=== PATIENT | male | born 1955 | race African-American/Black ===

== ENCOUNTER 2016-05-13 11:32 | Emergency (ER) | payer OTHER ==
--- NOTE | 2016-05-13 12:38 | REP ---
Clinical: Pain and swelling. Technique: AP, lateral, bilateral oblique and sunrise views of the left knee. Comparison: 03/14/2016. 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 No obvious acute fracture dislocation. Lateral view best demonstrates a moderate to large suprapatellar effusion and anterior soft tissue swelling. [place] view suggests a mild stable lateral subluxation to the patella. Impression: Suprapatellar effusion. Tricompartmental degenerative changes as noted above. No obvious acute fracture or dislocation. Signed by Soy Nevarez MD 05/13/2016 12:29 P
--- NOTE | 2016-05-13 12:51 | EDDOCDS ---
Nurse's Notes [facility] Name: Shiv Thomas Age: 61 yrs Sex: Male : 1955 Arrival Date: 05/13/2016 Time: 11:32 Bed PD Private MD: MAXX THOMAS Diagnosis: Pain in left knee-with Effusion and tricompartmental arthritis Presentation: 05/13 11:41 Presenting complaint: Patient states: Pt presents with left knee swelling denies injury dls pain x 3 weeks. Adult Sepsis Screening: The patient does not have new or worsening altered mentation. Patient's respiratory rate is less than 22. Systolic blood pressure is greater than 100. Patient has a qSOFA score of 0- Negative Sepsis Screen. Suicide/Homicide risk assessment- the patient denies having any suicidal and/or homicidal ideations and does not present with any other emotional, behavioral or mental health complaints. Status: Patient is not a customer service analyst or dependent. Transition of care: patient was not received from another setting of care. 11:41 Acuity: ALEIDA Level 4 dls 11:41 Method Of Arrival: Walkin/Carried/Asstd dls Triage Assessment: 11:43 General: Appears uncomfortable, well developed, Behavior is cooperative. Pain: Pain dls currently is 10 out of 10 on a pain scale. HIV screening NA for this visit Offered previously. Historical: - Allergies: no known allergies; - PMHx: Arthritis; - PSHx: right knee; - Social history: Smoking status: Patient uses tobacco products, light tobacco smoker. No barriers to communication noted, The patient speaks fluent Maori. - : The pt / caregiver states he / she is not on anticoagulants. Home medication list is obtained from the patient. - Exposure Risk Screening:: None identified. Vital Signs: 11:35 BP 137 / 76; Pulse 81; Resp 18 S; Temp 98.1; Pulse Ox 100% on R/A; Weight 86.18 kg (R); dd6 Height 6 ft. 8 in. (203.20 cm) (R); 12:42 BP 128 / 77; Pulse 82; Resp 18; Temp 97.6(O); Pulse Ox 99% on R/A; Pain 10/10; ct3 11:35 Body Mass Index 20.87 (86.18 kg, 203.20 cm) dd6 Vitals: 11:35 Log In Time: May 13, 2016 at 11:33. dd6 ED Course: 11:34 Patient visited by Navneet Heath PCA. dd6 11:34 Patient moved to Waiting dd6 11:35 NO [facility] is Private Physician. dd6 11:36 Patient moved to Pre RCE dd6 11:42 Triage Initiated dls 12:01 Patient moved to Triage 2 kcs 12:02 Jung Olvera PA-C is PHCP. dk1 12:02 Jocye Ralph MD is Attending Physician. dk1 12:05 Patient visited by uJng Olvera PA-C. dk1 12:11 Patient moved to TR4 kcs 12:35 [facility] is Referral Physician. dk1 12:38 Patient moved to PD ct3 12:42 Patient visited by Moon Marie PCA. ct3 Order Results: There are currently no results for this order. Outcome: 12:35 Discharge ordered by Provider. dk1 12:50 Patient left the ED. [facility] Signatures: Isabela Goodson RN RN Ines Potts RN RN Jung Carranza PA-C PA-C dk1 Navneet Heath, ANNIE CHERRY CUTTER dd6 Moon Marie PCA CHERRY CUTTER ct3 MTDD
--- NOTE | 2016-05-13 12:51 | EDDOCDS ---
Physician Documentation [facility] Name: Shiv Thomas Age: 61 yrs Sex: Male : 1955 Arrival Date: 05/13/2016 Time: 11:32 Bed PD Private MD: MAXX THOMAS Disposition: 05/13/16 12:35 Discharged to Home/Self Care. Impression: Pain in left knee - with Effusion and tricompartmental arthritis. - Condition is Stable. - Discharge Instructions: Arthralgia, Arthritis, Nonspecific, [id number]. - Prescriptions for meloxicam 15 mg Oral tablet - take 1 tablet by ORAL route once daily; 20 tablet. - Medication Reconciliation, Local Pharmacy Hours form. - Follow up: [facility]; When: 1 - 2 days; Reason: Recheck today's complaints, Continuance of care. Follow up: Emergency Department; When: As needed; Reason: Worsening of conditions. - Problem is an ongoing problem. - Symptoms are unchanged. Historical: - Allergies: no known allergies; - PMHx: Arthritis; - PSHx: right knee; - Social history: Smoking status: Patient uses tobacco products, light tobacco smoker. No barriers to communication noted, The patient speaks fluent Namibian. - : The pt / caregiver states he / she is not on anticoagulants. Home medication list is obtained from the patient. - Exposure Risk Screening:: None identified. Vital Signs: 05/13 11:35 BP 137 / 76; Pulse 81; Resp 18 S; Temp 98.1; Pulse Ox 100% on R/A; Weight 86.18 kg / dd6 189.99 lbs (R); Height 6 ft. 8 in. (203.20 cm) (R); 12:42 BP 128 / 77; Pulse 82; Resp 18; Temp 97.6(O); Pulse Ox 99% on R/A; Pain 10/10; ct3 11:35 Body Mass Index 20.87 (86.18 kg, 203.20 cm) dd6 MDM: 12:10 Knee, Complete Ordered. EDMS 12:13 Financial registration complete. lg Signatures: Dispatcher [employer] EDIsabela Card RN RN kcs Scott, Debra, RN RN dls Rehana Velasquez, Mj Reg lg Wade, Jung, PA-C PA-C dk1 MTDD
--- NOTE | 2016-05-15 13:50 | EDDOCDS ---
Nurse's Notes [facility] Name: Shiv Thomas Age: 61 yrs Sex: Male : 1955 Arrival Date: 05/13/2016 Time: 11:32 Bed PD Private MD: MAXX THOMAS Diagnosis: Pain in left knee-with Effusion and tricompartmental arthritis Presentation: 05/13 11:41 Presenting complaint: Patient states: Pt presents with left knee swelling denies injury dls pain x 3 weeks. Adult Sepsis Screening: The patient does not have new or worsening altered mentation. Patient's respiratory rate is less than 22. Systolic blood pressure is greater than 100. Patient has a qSOFA score of 0- Negative Sepsis Screen. Suicide/Homicide risk assessment- the patient denies having any suicidal and/or homicidal ideations and does not present with any other emotional, behavioral or mental health complaints. Status: Patient is not a customer service sales consultant or dependent. Transition of care: patient was not received from another setting of care. 11:41 Acuity: ALEIDA Level 4 dls 11:41 Method Of Arrival: Walkin/Carried/Asstd dls Triage Assessment: 11:43 General: Appears uncomfortable, well developed, Behavior is cooperative. Pain: Pain dls currently is 10 out of 10 on a pain scale. HIV screening NA for this visit Offered previously. Historical: - Allergies: no known allergies; - PMHx: Arthritis; - PSHx: right knee; - Social history: Smoking status: Patient uses tobacco products, light tobacco smoker. No barriers to communication noted, The patient speaks fluent Khmer. - Family history: Not pertinent. - : The pt / caregiver states he / she is not on anticoagulants. Home medication list is obtained from the patient. - Exposure Risk Screening:: None identified. Screenin:48 Screening information is obtained from the patient. Fall risk: No risks identified. kcs Assistance ADL's: requires no assistance with activities of daily living. Abuse/DV Screen: The patient / caregiver reports he/she is: not in a situation that causes fear, pain or injury. Nutritional screening: No deficits noted. Advance Directives: Currently, there is no health care proxy. There is no living will. home support is adequate. Assessment: 12:48 Reassessment: Patient states symptoms have not improved. kcs 12:48 General: Appears comfortable, slender, well developed, well nourished, well groomed, kcs Behavior is cooperative, pleasant. General: gait - upright and steady. Pain: Location: left knee. Neurological: Level of Consciousness is awake, alert. Respiratory: Airway is patent Respiratory effort is even, unlabored, Respiratory pattern is regular, symmetrical. Derm: Skin is intact, is healthy with good turgor, Skin is dry, Skin is normal. Vital Signs: 11:35 BP 137 / 76; Pulse 81; Resp 18 S; Temp 98.1; Pulse Ox 100% on R/A; Weight 86.18 kg (R); dd6 Height 6 ft. 8 in. (203.20 cm) (R); 12:42 BP 128 / 77; Pulse 82; Resp 18; Temp 97.6(O); Pulse Ox 99% on R/A; Pain 10/10; ct3 11:35 Body Mass Index 20.87 (86.18 kg, 203.20 cm) dd6 Vitals: 11:35 Log In Time: May 13, 2016 at 11:33. dd6 ED Course: 11:34 Patient visited by Navneet Heath PCA. dd6 11:34 Patient moved to Waiting dd6 11:35 [facility]. dd6 11:36 Patient moved to Pre RCE dd6 11:42 Triage Initiated dls 12:01 Patient moved to Triage 2 kcs 12:02 [facility] dk1 12:02 Joyce Ralph MD is Attending Physician. dk1 12:05 Patient visited by Jung Olvera PA-C. dk1 12:11 Patient moved to TR4 kcs 12:35 [facility] is Referral Physician. dk1 12:38 Patient moved to PD / ct3 12:42 Patient visited by Moon Marie PCA. ct3 12:48 The patient / caregiver is instructed regarding the plan of care and ED course. kcs 12:48 No IV's were initiated during this patient's visit. No procedures done that require kcs assistance. 12:55 Knee, Complete Returned. EDMS 14:45 [facility] Payment Agreement was scanned into [employer] and attached to record. lg 14:47 T-Sheet-- Draft Copy was scanned into [employer] and attached to record. 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 No obvious acute fracture; dislocation. Lateral view best demonstrates a moderate to large suprapatellar; effusion and anterior soft tissue swelling. [place] view suggests a mild stable; lateral subluxation to the patella.; ; Impression:; Suprapatellar effusion.; Tricompartmental degenerative changes as noted above.; No obvious acute fracture or dislocation.; ; ; Signed by; Soy Nevarez MD 05/13/2016 12:29 P; Outcome: 12:35 Discharge ordered by Provider. dk1 12:48 Discharge Assessment: Patient awake, alert and oriented x 3. No cognitive and/or kcs functional deficits noted. Patient verbalized understanding of disposition instructions. Patient awake and alert. patient administered narcotics - no. The following High Risk Discharge criteria are identified: None. Discharged to home ambulatory. Condition: stable. Discharge instructions given to patient, Instructed on discharge instructions, follow up and referral plans. already has an appointment with Ortho tomorrow Demonstrated understanding of instructions, medications, Pt was receptive of discharge instructions/ teaching. No special radiology studies were completed. Property sent home with patient. 12:50 Patient left the ED. roni Signatures: Dispatcher [employer] EDMS Isabela Goodson RN RN kcs Scott, Debra, RN RN dls Amna Servin, Reg Reg gb Rehana Velasquez, Reg Reg lg Jung Olvera PAJose Martin PA-C dk1 Navneet Heath, HORSE AND WAGON DRIVER HORSE AND WAGON DRIVER dd6 Moon Marie, HORSE AND WAGON DRIVER HORSE AND WAGON DRIVER ct3 Corrections: (The following items were deleted from the chart) 12:55 12:53 Reassessment: Patient states symptoms have not improved. roni tamayo Chart Complete MTDD
--- NOTE | 2016-05-15 13:50 | EDDOCDS ---
Physician Documentation [facility] Name: Shiv Thomas Age: 61 yrs Sex: Male : 1955 Arrival Date: 05/13/2016 Time: 11:32 Bed PD Private MD: MAXX THOMAS Disposition: 05/13/16 12:35 Discharged to Home/Self Care. Impression: Pain in left knee - with Effusion and tricompartmental arthritis. - Condition is Stable. - Discharge Instructions: Arthralgia, Arthritis, Nonspecific, [id number]-vr-[id number]. - Prescriptions for meloxicam 15 mg Oral tablet - take 1 tablet by ORAL route once daily; 20 tablet. - Medication Reconciliation, Local Pharmacy Hours form. - Follow up: [facility]; When: 1 - 2 days; Reason: Recheck today's complaints, Continuance of care. Follow up: Emergency Department; When: As needed; Reason: Worsening of conditions. - Problem is an ongoing problem. - Symptoms are unchanged. Historical: - Allergies: no known allergies; - PMHx: Arthritis; - PSHx: right knee; - Social history: Smoking status: Patient uses tobacco products, light tobacco smoker. No barriers to communication noted, The patient speaks fluent Kuwaiti. - Family history: Not pertinent. - : The pt / caregiver states he / she is not on anticoagulants. Home medication list is obtained from the patient. - Exposure Risk Screening:: None identified. Vital Signs: 05/13 11:35 BP 137 / 76; Pulse 81; Resp 18 S; Temp 98.1; Pulse Ox 100% on R/A; Weight 86.18 kg / dd6 189.99 lbs (R); Height 6 ft. 8 in. (203.20 cm) (R); 12:42 BP 128 / 77; Pulse 82; Resp 18; Temp 97.6(O); Pulse Ox 99% on R/A; Pain 10/10; ct3 11:35 Body Mass Index 20.87 (86.18 kg, 203.20 cm) dd6 MDM: 12:10 Knee, Complete Ordered. EDMS 12:13 Financial registration complete. lg 14:45 [facility] Payment Agreement was scanned into [employer] and attached to record. lg 14:47 T-Sheet-- Draft Copy was scanned into [employer] and attached to record. gb Signatures: Dispatcher [employer] Isabela Reeves RN RN Ines Potts RN RN dls Amna Servin, Reg Reg gb Rehana Velasquez, Reg Reg lg Jung Olvera, FLORENCIO vidal The chart was reviewed and I authenticate all verbal orders and agree with the evaluation and treatment provided.Attachments: 14:45 [facility] Payment Agreement lg 14:47 T-Sheet-- Draft Copy gb Chart Complete MTDD
--- NOTE | 2016-05-15 13:50 | EDDOCDS ---
Physician Documentation [facility] Name: Shiv Thomas Age: 61 yrs Sex: Male : 1955 Arrival Date: 05/13/2016 Time: 11:32 Bed PD Private MD: MAXX THOMAS Disposition: 05/13/16 12:35 Discharged to Home/Self Care. Impression: Pain in left knee - with Effusion and tricompartmental arthritis. - Condition is Stable. - Discharge Instructions: Arthralgia, Arthritis, Nonspecific, [id number]. - Prescriptions for meloxicam 15 mg Oral tablet - take 1 tablet by ORAL route once daily; 20 tablet. - Medication Reconciliation, Local Pharmacy Hours form. - Follow up: [facility]; When: 1 - 2 days; Reason: Recheck today's complaints, Continuance of care. Follow up: Emergency Department; When: As needed; Reason: Worsening of conditions. - Problem is an ongoing problem. - Symptoms are unchanged. Historical: - Allergies: no known allergies; - PMHx: Arthritis; - PSHx: right knee; - Social history: Smoking status: Patient uses tobacco products, light tobacco smoker. No barriers to communication noted, The patient speaks fluent Ethiopian. - Family history: Not pertinent. - : The pt / caregiver states he / she is not on anticoagulants. Home medication list is obtained from the patient. - Exposure Risk Screening:: None identified. Vital Signs: 05/13 11:35 BP 137 / 76; Pulse 81; Resp 18 S; Temp 98.1; Pulse Ox 100% on R/A; Weight 86.18 kg / dd6 189.99 lbs (R); Height 6 ft. 8 in. (203.20 cm) (R); 12:42 BP 128 / 77; Pulse 82; Resp 18; Temp 97.6(O); Pulse Ox 99% on R/A; Pain 10/10; ct3 11:35 Body Mass Index 20.87 (86.18 kg, 203.20 cm) dd6 MDM: 12:10 Knee, Complete Ordered. EDMS 12:13 Financial registration complete. lg 14:45 [facility] Payment Agreement was scanned into [email or web address] and attached to record. lg 14:47 T-Sheet-- Draft Copy was scanned into [email or web address] and attached to record. gb Signatures: Dispatcher [employer] Isabela Reeves RN RN Ines Potts RN RN dls Amna Servin, Reg Reg gb Rehana Velasquez, Reg Reg lg Jung Olvera, FLORENCIO vidal The chart was reviewed and I authenticate all verbal orders and agree with the evaluation and treatment provided.Attachments: 14:45 [facility] Payment Agreement lg 14:47 T-Sheet-- Draft Copy gb Chart Complete MTDD
== END 2016-05-13 12:50 | disposition home or self-care (01) ==
LOC: M ED 11:32
DX: M25.462 Effusion, left knee (principal); M25.562 Pain in left knee; M17.12 Unilateral primary osteoarthritis, left knee; Z72.0 Tobacco use

== ENCOUNTER 2016-05-21 11:27 | Emergency (ER) | payer OTHER ==
--- NOTE | 2016-05-21 12:23 | EDDOCDS ---
Physician Documentation [facility] Name: Shiv Thomas Age: 61 yrs Sex: Male : 1955 Arrival Date: 05/21/2016 Time: 11:27 Bed TR8 Private MD: MAXX THOMAS Disposition: 05/21/16 12:14 Discharged to Home/Self Care. Impression: Unspecified symptoms and signs involving the musculoskeletal system - thoracic strain. - Condition is Stable. - Discharge Instructions: Muscle Strain. - Prescriptions for Ibuprofen 600 mg Oral Tablet - take 1 tablet by ORAL route every 6 hours As needed take with food; 30 tablet. Cyclobenzaprine 10 mg Oral Tablet - take 1 tablet by ORAL route 3 times per day As needed; 15 tablet. - Medication Reconciliation, Local Pharmacy Hours form. - [facility]; When: Call to arrange an appointment; Reason: Recheck today's complaints, Continuance of care. - Problem is new. - Symptoms are unchanged. Historical: - Allergies: No known drug Allergies; - Home Meds: 1. Unknown - PMHx: Arthritis; - PSHx: right knee; - Social history: Smoking status: Patient uses tobacco products, light tobacco smoker. No barriers to communication noted, The patient speaks fluent Nicaraguan, Speaks appropriately for age. - Family history: Not pertinent. - : The pt / caregiver states he / she is not on anticoagulants. Unable to Verify Home Med List with the patient / caregiver. Note patient cannot remember what he takes for his need . - Exposure Risk Screening:: None identified. Vital Signs: 05/21 11:28 BP 157 / 85; Pulse 80; Resp 18 S; Temp 96.9(T); Pulse Ox 99% on R/A; Weight 88.45 kg / dd6 195 lbs (R); Height 6 ft. 8 in. (203.20 cm) (R); 11:28 Body Mass Index 21.42 (88.45 kg, 203.20 cm) dd6 MDM: 12:20 Financial registration complete. mm15 Signatures: Conor Sanchez, Yana Montes RN RN hs1 Grant Ramírez mm15 Jannette Burgess RN RN ms18 MTDD
--- NOTE | 2016-05-21 12:23 | EDDOCDS ---
Nurse's Notes [facility] Name: Shiv Thomas Age: 61 yrs Sex: Male : 1955 Arrival Date: 05/21/2016 Time: 11:27 Bed TR8 Private MD: MAXX THOMAS Diagnosis: Unspecified symptoms and signs involving the musculoskeletal system-thoracic strain Presentation: 05/21 11:34 Presenting complaint: Patient states: right upper abdominal pain states feels worse hs1 when he bends to orange picker something. Denies N/V/D. Denies urinary issues. Acute neurological deficits are not present. Mechanism of Injury: No Mechanism of Injury. Adult Sepsis Screening: The patient does not have new or worsening altered mentation. Patient's respiratory rate is less than 22. Systolic blood pressure is greater than 100. Patient has a qSOFA score of 0- Negative Sepsis Screen. Suicide/Homicide risk assessment- the patient denies having any suicidal and/or homicidal ideations and does not present with any other emotional, behavioral or mental health complaints. Status: Patient is not a director of women's services or dependent. Transition of care: patient was not received from another setting of care. 11:34 Acuity: ALEIDA Level 4 hs1 11:34 Method Of Arrival: Walkin/Carried/Asstd hs1 Triage Assessment: 11:37 General: Appears in no apparent distress, Behavior is appropriate for age, cooperative. hs1 Pain: Location: right lateral anterior chest Pain currently is 9 out of 10 on a pain scale. HIV screening NA for this visit Offered previously. Musculoskeletal: Circulation, motion, and sensation intact Capillary refill < 3 seconds Range of motion intact in all extremities. Historical: - Allergies: No known drug Allergies; - Home Meds: 1. Unknown - PMHx: Arthritis; - PSHx: right knee; - Social history: Smoking status: Patient uses tobacco products, light tobacco smoker. No barriers to communication noted, The patient speaks fluent Japanese, Speaks appropriately for age. - Family history: Not pertinent. - : The pt / caregiver states he / she is not on anticoagulants. Unable to Verify Home Med List with the patient / caregiver. Note patient cannot remember what he takes for his need . - Exposure Risk Screening:: None identified. Screenin:19 Screening information is obtained from the patient. Fall risk: No risks identified. ms18 Assistance ADL's: requires no assistance with activities of daily living. Abuse/DV Screen: The patient / caregiver reports he/she is: not in a situation that causes fear, pain or injury. Nutritional screening: No deficits noted. Advance Directives: There is no living will. home support is adequate. Assessment: 12:19 General: Appears in no apparent distress, comfortable, slender, Behavior is appropriate ms18 for age, cooperative, pleasant. Pain: Location: R side ribs. Neurological: No deficits noted. Respiratory: No deficits noted. Denies cough, shortness of breath. Derm: Skin is normal. Vital Signs: 11:28 BP 157 / 85; Pulse 80; Resp 18 S; Temp 96.9(T); Pulse Ox 99% on R/A; Weight 88.45 kg dd6 (R); Height 6 ft. 8 in. (203.20 cm) (R); 11:28 Body Mass Index 21.42 (88.45 kg, 203.20 cm) dd6 Vitals: 11:28 Log In Time: May 21, 2016 at 11:26. dd6 ED Course: 11:28 Patient visited by Navneet Heath PCA. dd6 11:28 [facility]. dd6 11:28 Patient moved to Waiting dd6 11:29 Patient moved to Pre RCE dd6 11:35 Triage Initiated hs1 11:58 Patient moved to Triage 2 ms18 12:00 [facility] ke 12:00 Patient visited by Conor Sanchez FNP. ke 12:00 Patient visited by Conor Sanchez FNP. ke 12:11 [facility] is Referral Physician. ke 12:19 Patient visited by Jannette Burgess RN. ms18 12:19 Patient moved to TR8 ms18 12:19 The patient / caregiver is instructed regarding the plan of care and ED course. Patient ms18 has correct armband on for positive identification. Property sent home with patient. :Personal belongings accompany Pt. 12:19 No IV's were initiated during this patient's visit. No procedures done that require ms18 assistance. Order Results: There are currently no results for this order. Outcome: 12:14 Discharge ordered by Provider. ke 12:19 Discharge Assessment: Patient awake, alert and oriented x 3. No cognitive and/or ms18 functional deficits noted. Patient verbalized understanding of disposition instructions. patient administered narcotics - no. The following High Risk Discharge criteria are identified: None. Discharged to home ambulatory. Condition: good Condition: stable. Discharge instructions given to patient, Instructed on discharge instructions, follow up and referral plans. medication usage, Demonstrated understanding of instructions, medications, Pt was receptive of discharge instructions/ teaching. Prescriptions given X 2. No special radiology studies were completed. 12:22 Patient left the ED. ms18 Signatures: Conor Sanchez, Navneet Marr, ANNIE PUBLICATIONS PRODUCTION SUPERVISOR dd6 Yaan Hernandez, RN RN hs1 Jannette BurgessRN RN ms18 MTDD
--- NOTE | 2016-05-23 13:23 | EDDOCDS ---
Physician Documentation [facility] Name: Shiv Thomas Age: 61 yrs Sex: Male : 1955 Arrival Date: 05/21/2016 Time: 11:27 Bed TR8 Private MD: MAXX THOMAS Disposition: 05/21/16 12:14 Discharged to Home/Self Care. Impression: Unspecified symptoms and signs involving the musculoskeletal system - thoracic strain. - Condition is Stable. - Discharge Instructions: Muscle Strain. - Prescriptions for Ibuprofen 600 mg Oral Tablet - take 1 tablet by ORAL route every 6 hours As needed take with food; 30 tablet. Cyclobenzaprine 10 mg Oral Tablet - take 1 tablet by ORAL route 3 times per day As needed; 15 tablet. - Medication Reconciliation, Local Pharmacy Hours form. - [facility] up: [facility]; When: Call to arrange an appointment; Reason: Recheck today's complaints, Continuance of care. - Problem is new. - Symptoms are unchanged. Historical: - Allergies: No known drug Allergies; - Home Meds: 1. Unknown - PMHx: Arthritis; - PSHx: right knee; - Social history: Smoking status: Patient uses tobacco products, light tobacco smoker. No barriers to communication noted, The patient speaks fluent Lao, Speaks appropriately for age. - Family history: Not pertinent. - : The pt / caregiver states he / she is not on anticoagulants. Unable to Verify Home Med List with the patient / caregiver. Note patient cannot remember what he takes for his need . - Exposure Risk Screening:: None identified. Vital Signs: 05/21 11:28 BP 157 / 85; Pulse 80; Resp 18 S; Temp 96.9(T); Pulse Ox 99% on R/A; Weight 88.45 kg / dd6 195 lbs (R); Height 6 ft. 8 in. (203.20 cm) (R); 11:28 Body Mass Index 21.42 (88.45 kg, 203.20 cm) dd6 MDM: 12:20 Financial registration complete. mm15 12:39 [facility] Payment Agreement was scanned into [employer] and attached to record. mm15 14:52 T-Sheet-- Draft Copy was scanned into [employer] and attached to record. gb Signatures: Amna Servin, Reg Reg gb Conor Sanchez, TUMBLING AND ROLLING SUPERVISOR TUMBLING AND ROLLING SUPERVISOR Yana Mcarthur RN RN hs1 Grant Ramírez mm15 Jannette Burgess,RN RN ms18 The chart was reviewed and I authenticate all verbal orders and agree with the evaluation and treatment provided.Attachments: 12:39 [facility] Payment Agreement mm15 14:52 T-Sheet-- Draft Copy gb Chart Complete MTDD
--- NOTE | 2016-05-23 13:23 | EDDOCDS ---
Physician Documentation [facility] Name: Shiv Thomas Age: 61 yrs Sex: Male : 1955 Arrival Date: 05/21/2016 Time: 11:27 Bed TR8 Private MD: MAXX THOMAS Disposition: 05/21/16 12:14 Discharged to Home/Self Care. Impression: Unspecified symptoms and signs involving the musculoskeletal system - thoracic strain. - Condition is Stable. - Discharge Instructions: Muscle Strain. - Prescriptions for Ibuprofen 600 mg Oral Tablet - take 1 tablet by ORAL route every 6 hours As needed take with food; 30 tablet. Cyclobenzaprine 10 mg Oral Tablet - take 1 tablet by ORAL route 3 times per day As needed; 15 tablet. - Medication Reconciliation, Local Pharmacy Hours form. - Follow up: [facility]; When: Call to arrange an appointment; Reason: Recheck today's complaints, Continuance of care. - Problem is new. - Symptoms are unchanged. Historical: - Allergies: No known drug Allergies; - Home Meds: 1. Unknown - PMHx: Arthritis; - PSHx: right knee; - Social history: Smoking status: Patient uses tobacco products, light tobacco smoker. No barriers to communication noted, The patient speaks fluent Cambodian, Speaks appropriately for age. - Family history: Not pertinent. - : The pt / caregiver states he / she is not on anticoagulants. Unable to Verify Home Med List with the patient / caregiver. Note patient cannot remember what he takes for his need . - Exposure Risk Screening:: None identified. Vital Signs: 05/21 11:28 BP 157 / 85; Pulse 80; Resp 18 S; Temp 96.9(T); Pulse Ox 99% on R/A; Weight 88.45 kg / dd6 195 lbs (R); Height 6 ft. 8 in. (203.20 cm) (R); 11:28 Body Mass Index 21.42 (88.45 kg, 203.20 cm) dd6 MDM: 12:20 Financial registration complete. mm15 12:39 [facility] Payment Agreement was scanned into [employer] and attached to record. mm15 14:52 T-Sheet-- Draft Copy was scanned into [employer] and attached to record. gb Signatures: Amna Servin, Reg Reg gb Conor Sanchez, ASSET ADMINISTRATOR ASSET ADMINISTRATOR Yana Mcarthur RN RN hs1 Grant Ramírez mm15 Jannette Burgess,RN RN ms18 The chart was reviewed and I authenticate all verbal orders and agree with the evaluation and treatment provided.Attachments: 12:39 [facility] Payment Agreement mm15 14:52 T-Sheet-- Draft Copy gb Chart Complete MTDD
--- NOTE | 2016-05-23 13:23 | EDDOCDS ---
Nurse's Notes [facility] Name: Shiv Thomas Age: 61 yrs Sex: Male : 1955 Arrival Date: 05/21/2016 Time: 11:27 Bed TR8 Private MD: MAXX THOMAS Diagnosis: Unspecified symptoms and signs involving the musculoskeletal system-thoracic strain Presentation: 05/21 11:34 Presenting complaint: Patient states: right upper abdominal pain states feels worse hs1 when he bends to sheepskin pickler something. Denies N/V/D. Denies urinary issues. Acute neurological deficits are not present. Mechanism of Injury: No Mechanism of Injury. Adult Sepsis Screening: The patient does not have new or worsening altered mentation. Patient's respiratory rate is less than 22. Systolic blood pressure is greater than 100. Patient has a qSOFA score of 0- Negative Sepsis Screen. Suicide/Homicide risk assessment- the patient denies having any suicidal and/or homicidal ideations and does not present with any other emotional, behavioral or mental health complaints. Status: Patient is not a supply service worker or dependent. Transition of care: patient was not received from another setting of care. 11:34 Acuity: ALEIDA Level 4 hs1 11:34 Method Of Arrival: Walkin/Carried/Asstd hs1 Triage Assessment: 11:37 General: Appears in no apparent distress, Behavior is appropriate for age, cooperative. hs1 Pain: Location: right lateral anterior chest Pain currently is 9 out of 10 on a pain scale. HIV screening NA for this visit Offered previously. Musculoskeletal: Circulation, motion, and sensation intact Capillary refill < 3 seconds Range of motion intact in all extremities. Historical: - Allergies: No known drug Allergies; - Home Meds: 1. Unknown - PMHx: Arthritis; - PSHx: right knee; - Social history: Smoking status: Patient uses tobacco products, light tobacco smoker. No barriers to communication noted, The patient speaks fluent Irish, Speaks appropriately for age. - Family history: Not pertinent. - : The pt / caregiver states he / she is not on anticoagulants. Unable to Verify Home Med List with the patient / caregiver. Note patient cannot remember what he takes for his need . - Exposure Risk Screening:: None identified. Screenin:19 Screening information is obtained from the patient. Fall risk: No risks identified. ms18 Assistance ADL's: requires no assistance with activities of daily living. Abuse/DV Screen: The patient / caregiver reports he/she is: not in a situation that causes fear, pain or injury. Nutritional screening: No deficits noted. Advance Directives: There is no living will. home support is adequate. Assessment: 12:19 General: Appears in no apparent distress, comfortable, slender, Behavior is appropriate ms18 for age, cooperative, pleasant. Pain: Location: R side ribs. Neurological: No deficits noted. Respiratory: No deficits noted. Denies cough, shortness of breath. Derm: Skin is normal. Vital Signs: 11:28 BP 157 / 85; Pulse 80; Resp 18 S; Temp 96.9(T); Pulse Ox 99% on R/A; Weight 88.45 kg dd6 (R); Height 6 ft. 8 in. (203.20 cm) (R); 11:28 Body Mass Index 21.42 (88.45 kg, 203.20 cm) dd6 Vitals: 11:28 Log In Time: May 21, 2016 at 11:26. dd6 ED Course: 11:28 Patient visited by Navneet Heath PCA. dd6 11:28 [facility] dd6 11:28 Patient moved to Waiting dd6 11:29 Patient moved to Pre RCE dd6 11:35 Triage Initiated hs1 11:58 Patient moved to Triage 2 ms18 12:00 [facility] ke 12:00 Patient visited by Conor Sanchez FNP. ke 12:00 Patient visited by Conor Sanchez FNP. ke 12:11 [facility] is Referral Physician. ke 12:19 Patient visited by Jannette Burgess RN. ms18 12:19 Patient moved to TR8 ms18 12:19 The patient / caregiver is instructed regarding the plan of care and ED course. Patient ms18 has correct armband on for positive identification. Property sent home with patient. :Personal belongings accompany Pt. 12:19 No IV's were initiated during this patient's visit. No procedures done that require ms18 assistance. 12:39 [facility] [place] [place] Payment Agreement was scanned into [employer] and attached to record. mm15 14:52 T-Sheet-- Draft Copy was scanned into [employer] and attached to record. gb Order Results: There are currently no results for this order. Outcome: 12:14 Discharge ordered by Provider. geri 12:19 Discharge Assessment: Patient awake, alert and oriented x 3. No cognitive and/or ms18 functional deficits noted. Patient verbalized understanding of disposition instructions. patient administered narcotics - no. The following High Risk Discharge criteria are identified: None. Discharged to home ambulatory. Condition: good Condition: stable. Discharge instructions given to patient, Instructed on discharge instructions, follow up and referral plans. medication usage, Demonstrated understanding of instructions, medications, Pt was receptive of discharge instructions/ teaching. Prescriptions given X 2. No special radiology studies were completed. 12:22 Patient left the ED. ms18 Signatures: Amna Servin, Reg Reg Conor Sawant, TELECOMMUNICATIONS ENGINEER TELECOMMUNICATIONS ENGINEER Navneet Soriano, WEEDER THINNER WEEDER THINNER dd6 Yana Hernandez, RN RN hs1 Grant Ramírez mm15 Jannette Burgess,RN RN ms18 Chart Complete [facility]
== END 2016-05-21 12:22 | disposition home or self-care (01) ==
LOC: M ED 11:27
DX: R07.89 Other chest pain (principal); S29.019A Strain of muscle and tendon of unspecified wall of thorax, initial encounter; X58.XXXA Exposure to other specified factors, initial encounter; Y92.89 Other specified places as the place of occurrence of the external cause; Y93.89 Activity, other specified; Y99.8 Other external cause status; M12.9 Arthropathy, unspecified; F17.210 Nicotine dependence, cigarettes, uncomplicated

== ENCOUNTER 2016-06-13 11:24 | Emergency (ER) | payer OTHER ==
--- NOTE | 2016-06-13 12:36 | REP ---
CHEST X-RAY: Two views. HISTORY: Right-sided chest pain. Cough. Comparison chest x-ray June 17, 2012. FINDINGS: The lungs are symmetrically aerated and free of infiltrate. Pleural angles are sharp. Heart size is normal. Pulmonary vasculature is not increased. There are degenerative changes in the shoulders particularly on the right. IMPRESSION: No active disease. Signed by Luis Casarez MD 06/13/2016 01:56 P
--- NOTE | 2016-06-13 13:27 | EDDOCDS ---
Physician Documentation [facility] Name: Shiv Thomas Age: 61 yrs Sex: Male : 1955 Arrival Date: 06/13/2016 Time: 11:24 Bed PR Private MD: MAXX THOMAS Disposition: 06/13/16 13:17 Discharged to Home/Self Care. Impression: Chest pain, unspecified. - Condition is Stable. - Discharge Instructions: Chest Wall Pain. - Prescriptions for Robaxin- 750 750 mg Oral Tablet - take 1 tablet by ORAL route every 6 hours As needed; 40 tablet. etodolac 200 mg Oral Capsule - take 1 capsule by ORAL route 3 times per day; 30 capsule. - Medication Reconciliation, Local Pharmacy Hours form. - Follow up: [facility]; When: Call to arrange an appointment; Reason: Further diagnostic work-up, Recheck today's complaints, Continuance of care. - Problem is an ongoing problem. - Symptoms are unchanged. Historical: - Allergies: No known drug Allergies; - Home Meds: 1. none - PMHx: Arthritis; - PSHx: right knee; - Social history: Smoking status: Patient uses tobacco products, light tobacco smoker. No barriers to communication noted, The patient speaks fluent Lithuanian, Speaks appropriately for age. - Family history: Not pertinent. - : The pt / caregiver states he / she is not on anticoagulants. Home medication list is obtained from the patient. - Exposure Risk Screening:: None identified. Vital Signs: 06/13 11:25 BP 163 / 90; Pulse 80; Resp 18; Temp 99.0(O); Pulse Ox 100% on R/A; Weight 83.91 kg / elp 184.99 lbs (R); Height 6 ft. 8 in. (203.20 cm) (R); Pain 10/10; 13:25 BP 141 / 87; Pulse 80; Resp 18; Temp 97.8(T); Pulse Ox 95% on R/A; Pain 10/10; ck1 11:25 Body Mass Index 20.32 (83.91 kg, 203.20 cm) elp MDM: 12:02 Chest, 2 View (pa\E\lat) Ordered. EDCT 12:32 Financial registration complete. mm15 12:32 [facility] [place] Payment Agreement was scanned into [employer] and attached to record. mm15 Signatures: Dispatcher [employer] EDKanwal MoyaRN RN ck1 Talia FlanneryRN RN jo3 Xavier Dobbins PA PA btw McGrath, Marlynn mm15 The chart was reviewed and I authenticate all verbal orders and agree with the evaluation and treatment provided.Attachments: 12:32 [facility] Payment Agreement mm15 MTDD
--- NOTE | 2016-06-13 13:27 | EDDOCDS ---
Nurse's Notes [facility] Name: Shiv Thomas Age: 61 yrs Sex: Male : 1955 Arrival Date: 06/13/2016 Time: 11:24 Bed PR Private MD: MAXX THOMAS Diagnosis: Chest pain, unspecified Presentation: 06/13 11:33 Presenting complaint: Patient states: Was seen here three weeks ago and diagnosed with jo3 a pulled muscle to right rib area. Pain pills are gone and the pain is still there. Adult Sepsis Screening: The patient does not have new or worsening altered mentation. Patient's respiratory rate is less than 22. Systolic blood pressure is greater than 100. Patient has a qSOFA score of 0- Negative Sepsis Screen. Suicide/Homicide risk assessment- the patient denies having any suicidal and/or homicidal ideations and does not present with any other emotional, behavioral or mental health complaints. Status: Patient is not a nutrition services aide or dependent. Transition of care: patient was not received from another setting of care. 11:33 Acuity: ALEIDA Level 4 jo3 11:33 Method Of Arrival: Walkin/Carried/Asstd jo3 Triage Assessment: 11:34 General: Appears in no apparent distress, comfortable, Behavior is appropriate for age, jo3 cooperative. HIV screening NA for this visit Offered previously. Neurological: Level of Consciousness is awake, alert, Oriented to person, place, time. Respiratory: Airway is patent Respiratory effort is even, unlabored. Derm: Skin Skin is pink, warm & dry. Historical: - Allergies: No known drug Allergies; - Home Meds: 1. none - PMHx: Arthritis; - PSHx: right knee; - Social history: Smoking status: Patient uses tobacco products, light tobacco smoker. No barriers to communication noted, The patient speaks fluent [place], Speaks appropriately for age. - Family history: Not pertinent. - : The pt / caregiver states he / she is not on anticoagulants. Home medication list is obtained from the patient. - Exposure Risk Screening:: None identified. Screenin:17 Screening information is obtained from the patient. Fall risk: No risks identified. ck1 Assistance ADL's: requires no assistance with activities of daily living. Abuse/DV Screen: The patient / caregiver reports he/she is: not in a situation that causes fear, pain or injury. Nutritional screening: No deficits noted. Advance Directives: Currently, there is no health care proxy. home support is adequate. Assessment: 13:25 General: Appears in no apparent distress, comfortable, Behavior is appropriate for age, ck1 cooperative. Pain: Location: chest Pain currently is 10 out of 10 on a pain scale. Neurological: Level of Consciousness is awake, alert, obeys commands, Oriented to person, place, time. Respiratory: Respiratory effort is unlabored, Respiratory pattern is regular, symmetrical. Derm: Skin is intact, is healthy with good turgor, Skin is pink, warm & dry. Musculoskeletal: Circulation, motion, and sensation intact Range of motion intact in all extremities. Vital Signs: 11:25 BP 163 / 90; Pulse 80; Resp 18; Temp 99.0(O); Pulse Ox 100% on R/A; Weight 83.91 kg elp (R); Height 6 ft. 8 in. (203.20 cm) (R); Pain 10/10; 13:25 BP 141 / 87; Pulse 80; Resp 18; Temp 97.8(T); Pulse Ox 95% on R/A; Pain 10/10; ck1 11:25 Body Mass Index 20.32 (83.91 kg, 203.20 cm) [facility] Vitals: 11:25 Log In Time: June 13, 2016 at 11:15. [facility] ED Course: 11:25 Patient visited by Cassandra Gonzalez PCA. elp 11:25 [facility] elp 11:25 Patient moved to Waiting elp 11:27 Patient visited by Cassandra Gonzalez PCA. elp 11:27 Patient moved to Pre RCE elp 11:34 Triage Initiated jo3 11:35 Patient visited by Talia Flannery RN. jo3 11:35 Patient moved to Triage 2 jo3 11:48 Xavier Dobbins PA is [facility]. btw 11:48 Shital Galo MD is Attending Physician. btw 11:49 Patient visited by Xavier Dobbins PA. btw 12:01 Patient moved to TR1 kcs 12:19 Patient visited by Moon Marie PCA. ct3 12:32 [facility] [place] [facility] Payment Agreement was scanned into [employer] and attached to record. mm15 12:49 Patient moved to PR1 / [facility] 13:16 [facility] is Referral Physician. btw 13:17 Patient visited by Kanwal Durham RN. ck1 13:17 The patient / caregiver is instructed regarding the plan of care and ED course. ck1 13:17 No IV's were initiated during this patient's visit. No procedures done that require ck1 assistance. 13:18 Chest, 2 View (pa\E\lat) Returned. EDMS Order Results: Radiology Order: Chest, 2 View (pa\E\lat) Test: Chest, 2 View (pa\E\lat) REASON FOR EXAMINATION: RIGHT sided;Cough;Chest Pain; CHEST X-RAY: Two views.; ; HISTORY: Right-sided chest pain. Cough.; ; Comparison chest x-ray June 17, 2012.; ; FINDINGS: The lungs are symmetrically aerated and free of infiltrate. Pleural; angles are sharp. Heart size is normal. Pulmonary vasculature is not increased.; There are degenerative changes in the shoulders particularly on the right.; ; IMPRESSION:; No active disease.; ; ; ; ; Unreviewed; Outcome: 13:17 Discharge ordered by Provider. btw 13:25 Discharge Assessment: Patient awake, alert and oriented x 3. No cognitive and/or ck1 functional deficits noted. Patient verbalized understanding of disposition instructions. patient administered narcotics - no. The following High Risk Discharge criteria are identified: None. Discharged to home ambulatory. Condition: stable. Discharge instructions given to patient, Instructed on discharge instructions, follow up and referral plans. medication usage, Demonstrated understanding of instructions, medications, Pt was receptive of discharge instructions/ teaching. Prescriptions given X 2. No special radiology studies were completed. Property :Personal belongings accompany Pt. 13:26 Patient left the ED. ck1 Signatures: Dispatcher [facility] Isabela Goodson RN RN kcs Kim-Ashcraft, Connie,RN RN ck1 Talia Flannery RN RN jo3 Wolfenden, Brandon, PA PA btw Marie, Moon, FERTILIZER SUPERVISOR FERTILIZER SUPERVISOR ct3 Ramírez, Jacquelinenn mm15 Patchen, Cassandra, FERTILIZER SUPERVISOR FERTILIZER SUPERVISOR elp MTDD
--- NOTE | 2016-06-15 14:27 | EDDOCDS ---
Nurse's Notes [facility] Name: Shiv Thomas Age: 61 yrs Sex: Male : 1955 Arrival Date: 06/13/2016 Time: 11:24 Bed PR Private MD: MAXX THOMAS Diagnosis: Chest pain, unspecified Presentation: 06/13 11:33 Presenting complaint: Patient states: Was seen here three weeks ago and diagnosed with jo3 a pulled muscle to right rib area. Pain pills are gone and the pain is still there. Adult Sepsis Screening: The patient does not have new or worsening altered mentation. Patient's respiratory rate is less than 22. Systolic blood pressure is greater than 100. Patient has a qSOFA score of 0- Negative Sepsis Screen. Suicide/Homicide risk assessment- the patient denies having any suicidal and/or homicidal ideations and does not present with any other emotional, behavioral or mental health complaints. 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 Transition of care: patient was not received from another setting of care. 11:33 Acuity: ALEIDA Level 4 jo3 11:33 Method Of Arrival: Walkin/Carried/Asstd jo3 Triage Assessment: 11:34 General: Appears in no apparent distress, comfortable, Behavior is appropriate for age, jo3 cooperative. HIV screening NA for this visit Offered previously. Neurological: Level of Consciousness is awake, alert, Oriented to person, place, time. Respiratory: Airway is patent Respiratory effort is even, unlabored. Derm: Skin Skin is pink, warm & dry. Historical: - Allergies: No known drug Allergies; - Home Meds: 1. none - PMHx: Arthritis; - PSHx: right knee; - Social history: Smoking status: Patient uses tobacco products, light tobacco smoker. No barriers to communication noted, The patient speaks fluent Armenian, Speaks appropriately for age. - Family history: Not pertinent. - : The pt / caregiver states he / she is not on anticoagulants. Home medication list is obtained from the patient. - Exposure Risk Screening:: None identified. Screenin:17 Screening information is obtained from the patient. Fall risk: No risks identified. ck1 Assistance ADL's: requires no assistance with activities of daily living. Abuse/DV Screen: The patient / caregiver reports he/she is: not in a situation that causes fear, pain or injury. Nutritional screening: No deficits noted. Advance Directives: Currently, there is no health care proxy. home support is adequate. Assessment: 13:25 General: Appears in no apparent distress, comfortable, Behavior is appropriate for age, ck1 cooperative. Pain: Location: chest Pain currently is 10 out of 10 on a pain scale. Neurological: Level of Consciousness is awake, alert, obeys commands, Oriented to person, place, time. Respiratory: Respiratory effort is unlabored, Respiratory pattern is regular, symmetrical. Derm: Skin is intact, is healthy with good turgor, Skin is pink, warm & dry. Musculoskeletal: Circulation, motion, and sensation intact Range of motion intact in all extremities. Vital Signs: 11:25 BP 163 / 90; Pulse 80; Resp 18; Temp 99.0(O); Pulse Ox 100% on R/A; Weight 83.91 kg elp (R); Height 6 ft. 8 in. (203.20 cm) (R); Pain 10/10; 13:25 BP 141 / 87; Pulse 80; Resp 18; Temp 97.8(T); Pulse Ox 95% on R/A; Pain 10/10; ck1 11:25 Body Mass Index 20.32 (83.91 kg, 203.20 cm) [facility] Vitals: 11:25 Log In Time: June 13, 2016 at 11:15. [facility] ED Course: 11:25 Patient visited by Cassandra Gonzalez PCA. elp 11:25 [facility]. elp 11:25 Patient moved to Waiting elp 11:27 Patient visited by Cassandra Gonzalez PCA. elp 11:27 Patient moved to Pre RCE elp 11:34 Triage Initiated jo3 11:35 Patient visited by Talia Flannery RN. jo3 11:35 Patient moved to Triage 2 jo3 11:48 [facility] btw 11:48 Shital Galo MD is Attending Physician. btw 11:49 Patient visited by Xavier Dobbins PA. btw 12:01 Patient moved to TR1 kcs 12:19 Patient visited by Moon Marie PCA. ct3 12:32 [facility] Payment Agreement was scanned into [employer] and attached to record. mm15 12:49 Patient moved to PR kcs 13:16 [facility] is Referral Physician. btw 13:17 Patient visited by Kanwal Durham RN. ck1 13:17 The patient / caregiver is instructed regarding the plan of care and ED course. ck1 13:17 No IV's were initiated during this patient's visit. No procedures done that require ck1 assistance. 13:18 Chest, 2 View (pa\E\lat) Returned. EDHI 15:01 T-Sheet-- Draft Copy was scanned into [employer] and attached to record. gb Order Results: Radiology Order: Chest, 2 View (pa\E\lat) Test: Chest, 2 View (pa\E\lat) REASON FOR EXAMINATION: RIGHT sided;Cough;Chest Pain; CHEST X-RAY: Two views.; ; HISTORY: Right-sided chest pain. Cough.; ; Comparison chest x-ray June 17, 2012.; ; FINDINGS: The lungs are symmetrically aerated and free of infiltrate. Pleural; angles are sharp. Heart size is normal. Pulmonary vasculature is not increased.; There are degenerative changes in the shoulders particularly on the right.; ; IMPRESSION: No active disease.; ; ; Signed by; Luis Casarez MD 06/13/2016 01:56 P; Outcome: 13:17 Discharge ordered by Provider. btw 13:25 Discharge Assessment: Patient awake, alert and oriented x 3. No cognitive and/or ck1 functional deficits noted. Patient verbalized understanding of disposition instructions. patient administered narcotics - no. The following High Risk Discharge criteria are identified: None. Discharged to home ambulatory. Condition: stable. Discharge instructions given to patient, Instructed on discharge instructions, follow up and referral plans. medication usage, Demonstrated understanding of instructions, medications, Pt was receptive of discharge instructions/ teaching. Prescriptions given X 2. No special radiology studies were completed. Property :Personal belongings accompany Pt. 13:26 Patient left the ED. ck1 Signatures: Dispatcher [employer] EDHI Isabela Goodson, RN Amna Kang, Reg Reg gb Kanwal Durham,RN RN ck1 Talia Flannery RN RN jo3 Wolfenden, Brandon, PA PA btw Moon Marie, TICKET MARKER TICKET MARKER ct3 Grant Ramírez mm15 Patchen, Cassandra, TICKET MARKER TICKET MARKER elp Chart Complete MTDD
--- NOTE | 2016-06-15 14:27 | EDDOCDS ---
Physician Documentation [facility] Name: Shiv Thomas Age: 61 yrs Sex: Male : 1955 Arrival Date: 06/13/2016 Time: 11:24 Bed PR Private MD: MAXX THOMAS Disposition: 06/13/16 13:17 Discharged to Home/Self Care. Impression: Chest pain, unspecified. - Condition is Stable. - Discharge Instructions: Chest Wall Pain. - Prescriptions for Robaxin- 750 750 mg Oral Tablet - take 1 tablet by ORAL route every 6 hours As needed; 40 tablet. etodolac 200 mg Oral Capsule - take 1 capsule by ORAL route 3 times per day; 30 capsule. - Medication Reconciliation, Local Pharmacy Hours form. - Follow up: [facility]; When: Call to arrange an appointment; Reason: Further diagnostic work-up, Recheck today's complaints, Continuance of care. - Problem is an ongoing problem. - Symptoms are unchanged. Historical: - Allergies: No known drug Allergies; - Home Meds: 1. none - PMHx: Arthritis; - PSHx: right knee; - Social history: Smoking status: Patient uses tobacco products, light tobacco smoker. No barriers to communication noted, The patient speaks fluent Kiswahili, Speaks appropriately for age. - Family history: Not pertinent. - : The pt / caregiver states he / she is not on anticoagulants. Home medication list is obtained from the patient. - Exposure Risk Screening:: None identified. Vital Signs: 06/13 11:25 BP 163 / 90; Pulse 80; Resp 18; Temp 99.0(O); Pulse Ox 100% on R/A; Weight 83.91 kg / elp 184.99 lbs (R); Height 6 ft. 8 in. (203.20 cm) (R); Pain 10/10; 13:25 BP 141 / 87; Pulse 80; Resp 18; Temp 97.8(T); Pulse Ox 95% on R/A; Pain 10/10; ck1 11:25 Body Mass Index 20.32 (83.91 kg, 203.20 cm) elp MDM: 12:02 Chest, 2 View (pa\E\lat) Ordered. EDMT 12:32 Financial registration complete. mm15 12:32 [facility] Payment Agreement was scanned into [employer] and attached to record. mm15 15:01 T-Sheet-- Draft Copy was scanned into [employer] and attached to record. gb Signatures: Dispatcher [employer] EDAmna Ellis, Reg Reg gb Arely-Kanwal Hicks,RN RN ck1 Talia Flannery,RN RN jo3 Xavier Dobbins PA PA btw McGrath, Marlynn mm15 The chart was reviewed and I authenticate all verbal orders and agree with the evaluation and treatment provided.Attachments: 12:32 [facility] Payment Agreement mm15 15:01 T-Sheet-- Draft Copy gb Chart Complete MTDD
--- NOTE | 2016-06-15 14:27 | EDDOCDS ---
Physician Documentation [facility] Name: Shiv Thomas Age: 61 yrs Sex: Male : 1955 Arrival Date: 06/13/2016 Time: 11:24 Bed PR Private MD: MAXX THOMAS Disposition: 06/13/16 13:17 Discharged to Home/Self Care. Impression: Chest pain, unspecified. - Condition is Stable. - Discharge Instructions: Chest Wall Pain. - Prescriptions for Robaxin- 750 750 mg Oral Tablet - take 1 tablet by ORAL route every 6 hours As needed; 40 tablet. etodolac 200 mg Oral Capsule - take 1 capsule by ORAL route 3 times per day; 30 capsule. - Medication Reconciliation, Local Pharmacy Hours form. - Follow up: [facility]; When: Call to arrange an appointment; Reason: Further diagnostic work-up, Recheck today's complaints, Continuance of care. - Problem is an ongoing problem. - Symptoms are unchanged. Historical: - Allergies: No known drug Allergies; - Home Meds: 1. none - PMHx: Arthritis; - PSHx: right knee; - Social history: Smoking status: Patient uses tobacco products, light tobacco smoker. No barriers to communication noted, The patient speaks fluent Setswana, Speaks appropriately for age. - Family history: Not pertinent. - : The pt / caregiver states he / she is not on anticoagulants. Home medication list is obtained from the patient. - Exposure Risk Screening:: None identified. Vital Signs: 06/13 11:25 BP 163 / 90; Pulse 80; Resp 18; Temp 99.0(O); Pulse Ox 100% on R/A; Weight 83.91 kg / elp 184.99 lbs (R); Height 6 ft. 8 in. (203.20 cm) (R); Pain 10/10; 13:25 BP 141 / 87; Pulse 80; Resp 18; Temp 97.8(T); Pulse Ox 95% on R/A; Pain 10/10; ck1 11:25 Body Mass Index 20.32 (83.91 kg, 203.20 cm) elp MDM: 12:02 Chest, 2 View (pa\E\lat) Ordered. EDIL 12:32 Financial registration complete. mm15 12:32 [facility] Payment Agreement was scanned into [employer] and attached to record. mm15 15:01 T-Sheet-- Draft Copy was scanned into [employer] and attached to record. gb Signatures: Dispatcher [employer] EDAmna Ellis, Reg Reg gb Arely-Kanwal Hicks,RN RN ck1 Talia Flannery,RN RN jo3 Xavier Dobbins PA PA btw McGrath, Marlynn mm15 The chart was reviewed and I authenticate all verbal orders and agree with the evaluation and treatment provided.Attachments: 12:32 [facility] Payment Agreement mm15 15:01 T-Sheet-- Draft Copy gb Chart Complete MTDD
== END 2016-06-13 13:26 | disposition home or self-care (01) ==
LOC: M ED 11:24
DX: R07.89 Other chest pain (principal); M19.90 Unspecified osteoarthritis, unspecified site; F17.210 Nicotine dependence, cigarettes, uncomplicated

== ENCOUNTER 2016-06-22 21:10 | Emergency (ER) | payer OTHER ==
[2016-06-22] MEDS ORDERED: NORCO, ANEXSIA 5/325MG TABLET (HYDROcodone/ACETAMINOPHEN) As Ordered ONE (22:50)
--- NOTE | 2016-06-22 23:06 | EDDOCDS ---
Physician Documentation [facility] Name: Shiv Thomas Age: 61 yrs Sex: Male : 1955 Arrival Date: 06/22/2016 Time: 21:10 Bed TR8 Private MD: MAXX THOMAS Disposition: 06/22/16 22:54 Discharged to Home/Self Care. Impression: Effusion, left knee - suprapatella, Pain in left knee - degenerative joint disease . - Condition is Stable. - Discharge Instructions: Knee Effusion, Knee Pain. - Prescriptions for [place] 5- 325 mg Oral Tablet - take 1 tablet by ORAL route every 6 hours As needed MDD: 4 tabs; 12 tablet. - Medication Reconciliation, Local Pharmacy Hours form. - Follow up: Private Physician; When: Call to arrange an appointment; Reason: Recheck today's complaints, Continuance of care. - Problem is an ongoing problem. - Symptoms are unchanged. Historical: - Allergies: no known allergies; - Home Meds: 1. Tylenol 325 mg Oral tab 2 tabs every 4 hours (Last dose: 06/22/2016 08:00) - PMHx: Arthritis; - PSHx: right knee; Thyroidectomy; - Social history: Smoking status: Patient uses tobacco products, current every day smoker. Patient/guardian denies using alcohol, street drugs, No barriers to communication noted, The patient speaks fluent Mongolian, Speaks appropriately for age. - Family history: Not pertinent. - : The pt / caregiver states he / she is not on anticoagulants. Home medication list is obtained from the patient. - Exposure Risk Screening:: None identified. Vital Signs: 06/22 21:11 BP 139 / 92; Pulse 89; Resp 18; Temp 97.2(O); Pulse Ox 100% on R/A; Weight 86.18 kg / rs3 189.99 lbs (R); Height 6 ft. 8 in. (203.20 cm) (R); 23:02 BP 156 / 96; Pulse 80; Resp 18; Pulse Ox 100% on R/A; ttb 21:11 Body Mass Index 20.87 (86.18 kg, 203.20 cm) rs3 MDM: 22:49 HYDROcodone-acetaminophen 5 mg-325 mg 1 tabs PO once ordered. mo1 22:49 Bryan Wrap ordered. mo1 Administered Medications: 22:53 Drug: HYDROcodone-acetaminophen 1 tabs [hydrocodone 5 mg-acetaminophen 325 mg tablet (1 rs3 tabs)] Route: PO; 23:04 Follow up: Response: Confirmed pt not driving. ttb Signatures: Jodi Briggs RN RN ttb Mian Franco PA PA mo1 Neyda Kothari RN rs3 MTDD
--- NOTE | 2016-06-22 23:06 | EDDOCDS ---
Nurse's Notes [facility] Name: Shiv Thomas Age: 61 yrs Sex: Male : 1955 Arrival Date: 06/22/2016 Time: 21:10 Bed TR8 Private MD: MAXX THOMAS Diagnosis: Effusion, left knee-suprapatella;Pain in left knee-degenerative joint disease Presentation: 06/22 21:22 Presenting complaint: Patient states: left knee pain and swelling. 10 pain. Here 2 ttb weeks ago and is getting worse. PCP apt next Friday. Adult Sepsis Screening: The patient does not have new or worsening altered mentation. Patient's respiratory rate is less than 22. Systolic blood pressure is greater than 100. Patient has a qSOFA score of 0- Negative Sepsis Screen. Suicide/Homicide risk assessment- the patient denies having any suicidal and/or homicidal ideations and does not present with any other emotional, behavioral or mental health complaints. Status: Patient is not a student services director or dependent. Transition of care: patient was not received from another setting of care. 21:22 Acuity: ALEIDA Level 4 ttb 21:22 Method Of Arrival: Walkin/Carried/Asstd ttb Triage Assessment: 21:24 General: Appears in no apparent distress, Behavior is appropriate for age. Pain: ttb Location: left knee 10. HIV screening NA for this visit Offered previously. Neurological: Level of Consciousness is awake, alert. Respiratory: No deficits noted. Airway is patent. Derm: Skin is normal. Musculoskeletal: Reports pain in lateral aspect of left knee, posterior aspect of left knee, medial aspect of left knee and left knee left knee swelling. Historical: - Allergies: no known allergies; - Home Meds: 1. Tylenol 325 mg Oral tab 2 tabs every 4 hours (Last dose: 06/22/2016 08:00) - PMHx: Arthritis; - PSHx: right knee; Thyroidectomy; - Social history: Smoking status: Patient uses tobacco products, current every day smoker. Patient/guardian denies using alcohol, street drugs, No barriers to communication noted, The patient speaks fluent Romanian, Speaks appropriately for age. - Family history: Not pertinent. - : The pt / caregiver states he / she is not on anticoagulants. Home medication list is obtained from the patient. - Exposure Risk Screening:: None identified. Screenin:02 Screening information is obtained from the patient. Fall risk: No risks identified. ttb Assistance ADL's: requires no assistance with activities of daily living. Abuse/DV Screen: The patient / caregiver reports he/she is: not in a situation that causes fear, pain or injury. Nutritional screening: No deficits noted. Advance Directives: Currently, there is no health care proxy. home support is adequate. Assessment: 23:02 General: Appears in no apparent distress, well nourished, well groomed, Behavior is ttb appropriate for age, cooperative, pleasant. Neurological: Level of Consciousness is awake, alert. Respiratory: No deficits noted. Derm: Skin is normal. Vital Signs: 21:11 BP 139 / 92; Pulse 89; Resp 18; Temp 97.2(O); Pulse Ox 100% on R/A; Weight 86.18 kg rs3 (R); Height 6 ft. 8 in. (203.20 cm) (R); 23:02 BP 156 / 96; Pulse 80; Resp 18; Pulse Ox 100% on R/A; ttb 21:11 Body Mass Index 20.87 (86.18 kg, 203.20 cm) rs3 Vitals: 21:11 Log In Time: June 22, 2016 at 21:09. [facility] ED Course: 21:10 Patient visited by Cassandra Gonzalez PCA. elp 21:10 MAXX THOMAS is Private Physician. elp 21:10 Patient moved to Waiting elp 21:13 Patient moved to Pre RCE elp 21:23 Triage Initiated ttb 22:12 Patient moved to Triage 2 kmg1 22:42 Mian Franco PA [facility]. mo1 22:42 Carlos Souza DO is Attending Physician. mo1 22:43 Patient visited by Mian Franco PA. mo1 23:02 Patient moved to TR8 km 23:02 The patient / caregiver is instructed regarding the plan of care and ED course. ttb Accompanied by Significant Other, Patient has correct armband on for positive identification. 23:02 No IV's were initiated during this patient's visit. No procedures done that require ttb assistance. 23:02 Bryan wrap to given for home use per pt request. ttb Administered Medications: 22:53 Drug: HYDROcodone-acetaminophen 1 tabs [hydrocodone 5 mg-acetaminophen 325 mg tablet (1 rs3 tabs)] Route: PO; 23:04 Follow up: Response: Confirmed pt not driving. ttb Order Results: There are currently no results for this order. Outcome: 22:54 Discharge ordered by Provider. mo1 23:02 Discharge Assessment: Patient awake, alert and oriented x 3. No cognitive and/or ttb functional deficits noted. Patient verbalized understanding of disposition instructions. Patient awake and alert. patient administered narcotics - yes. Pt provided with safe discharge. The following High Risk Discharge criteria are identified: None. Discharged to home ambulatory, with significant other. Condition: good Condition: stable Condition: improved. Discharge instructions given to patient, significant other, Instructed on discharge instructions, follow up and referral plans. medication usage, no driving heavy equipment, Rest, Ice, Compression and Elevation. no drinking with medication, Demonstrated understanding of instructions, medications, use of bryan wrap, no d/d with narcs Pt was receptive of discharge instructions/ teaching. Prescriptions given X 1. No special radiology studies were completed. Property :Personal belongings accompany Pt. 23:04 Patient left the ED. ttb Signatures: Ban Mei RN RN kmg1 Neyda Kothari RN RN rs3 Jodi Briggs RN RN ttb Mian Franco PA PA mo1 Cassandra Gonzalez, [employer] RETAIL SUPPORT SPECIALIST elp Corrections: (The following items were deleted from the chart) 22:53 21:11 BP 139 / 92; Pulse 89bpm; Resp 89bpm; Pulse Ox 100% RA; Temp 97.2F Oral; 86.18 kg rs3 Reported; Height 6 ft. 8 in. Reported; BMI: 20.8; elp MTDD
--- NOTE | 2016-06-25 00:06 | EDDOCDS ---
Physician Documentation [facility] Name: Shiv Thomas Age: 61 yrs Sex: Male : 1955 Arrival Date: 06/22/2016 Time: 21:10 Bed TR8 Private MD: MAXX THOMAS Disposition: 06/22/16 22:54 Discharged to Home/Self Care. Impression: Effusion, left knee - suprapatella, Pain in left knee - degenerative joint disease . - Condition is Stable. - Discharge Instructions: Knee Effusion, Knee Pain. - Prescriptions for [place] 5- 325 mg Oral Tablet - take 1 tablet by ORAL route every 6 hours As needed MDD: 4 tabs; 12 tablet. - Medication Reconciliation, Local Pharmacy Hours form. - Follow up: Private Physician; When: Call to arrange an appointment; Reason: Recheck today's complaints, Continuance of care. - Problem is an ongoing problem. - Symptoms are unchanged. Historical: - Allergies: no known allergies; - Home Meds: 1. Tylenol 325 mg Oral tab 2 tabs every 4 hours (Last dose: 06/22/2016 08:00) - PMHx: Arthritis; - PSHx: right knee; Thyroidectomy; - Social history: Smoking status: Patient uses tobacco products, current every day smoker. Patient/guardian denies using alcohol, street drugs, No barriers to communication noted, The patient speaks fluent Bulgarian, Speaks appropriately for age. - Family history: Not pertinent. - : The pt / caregiver states he / she is not on anticoagulants. Home medication list is obtained from the patient. - Exposure Risk Screening:: None identified. Vital Signs: 06/22 21:11 BP 139 / 92; Pulse 89; Resp 18; Temp 97.2(O); Pulse Ox 100% on R/A; Weight 86.18 kg / rs3 189.99 lbs (R); Height 6 ft. 8 in. (203.20 cm) (R); 23:02 BP 156 / 96; Pulse 80; Resp 18; Pulse Ox 100% on R/A; ttb 21:11 Body Mass Index 20.87 (86.18 kg, 203.20 cm) rs3 MDM: 22:49 HYDROcodone-acetaminophen 5 mg-325 mg 1 tabs PO once ordered. mo1 22:49 Bryan Wrap ordered. mo1 23:13 Financial registration complete. ks16 23:15 [facility] Payment Agreement was scanned into [employer] and attached to record. ks16 06/23 22:54 T-Sheet-- Draft Copy was scanned into [employer] and attached to record. klr Administered Medications: 06/22 22:53 Drug: HYDROcodone-acetaminophen 1 tabs [hydrocodone 5 mg-acetaminophen 325 mg tablet (1 rs3 tabs)] Route: PO; 23:04 Follow up: Response: Confirmed pt not driving. ttb Signatures: Jodi Briggs RN RN ttb Mian Franco PA PA mo1 Beverly Soliman, Reg Reg ks16 Beba Urbina Rosemary RN rs3 The chart was reviewed and I authenticate all verbal orders and agree with the evaluation and treatment provided.Attachments: 23:15 [facility] Payment Agreement [email or web address] 06/23 22:54 T-Sheet-- Draft Copy klr Chart Complete MTDD
--- NOTE | 2016-06-25 00:06 | EDDOCDS ---
Physician Documentation [facility] Name: Shiv Thomas Age: 61 yrs Sex: Male : 1955 Arrival Date: 06/22/2016 Time: 21:10 Bed TR8 Private MD: MAXX THOMAS Disposition: 06/22/16 22:54 Discharged to Home/Self Care. Impression: Effusion, left knee - suprapatella, Pain in left knee - degenerative joint disease . - Condition is Stable. - Discharge Instructions: Knee Effusion, Knee Pain. - Prescriptions for Combes 5- 325 mg Oral Tablet - take 1 tablet by ORAL route every 6 hours As needed MDD: 4 tabs; 12 tablet. - Medication Reconciliation, Local Pharmacy Hours form. - Follow up: Private Physician; When: Call to arrange an appointment; Reason: Recheck today's complaints, Continuance of care. - Problem is an ongoing problem. - Symptoms are unchanged. Historical: - Allergies: no known allergies; - Home Meds: 1. Tylenol 325 mg Oral tab 2 tabs every 4 hours (Last dose: 06/22/2016 08:00) - PMHx: Arthritis; - PSHx: right knee; Thyroidectomy; - Social history: Smoking status: Patient uses tobacco products, current every day smoker. Patient/guardian denies using alcohol, street drugs, No barriers to communication noted, The patient speaks fluent Arabic, Speaks appropriately for age. - Family history: Not pertinent. - : The pt / caregiver states he / she is not on anticoagulants. Home medication list is obtained from the patient. - Exposure Risk Screening:: None identified. Vital Signs: 06/22 21:11 BP 139 / 92; Pulse 89; Resp 18; Temp 97.2(O); Pulse Ox 100% on R/A; Weight 86.18 kg / rs3 189.99 lbs (R); Height 6 ft. 8 in. (203.20 cm) (R); 23:02 BP 156 / 96; Pulse 80; Resp 18; Pulse Ox 100% on R/A; ttb 21:11 Body Mass Index 20.87 (86.18 kg, 203.20 cm) rs3 MDM: 22:49 HYDROcodone-acetaminophen 5 mg-325 mg 1 tabs PO once ordered. mo1 22:49 Bryan Wrap ordered. mo1 23:13 Financial registration complete. ks16 23:15 [facility] Payment Agreement was scanned into [employer] and attached to record. [email or web address] 06/23 22:54 T-Sheet-- Draft Copy was scanned into [employer] and attached to record. klr Administered Medications: 06/22 22:53 Drug: HYDROcodone-acetaminophen 1 tabs [hydrocodone 5 mg-acetaminophen 325 mg tablet (1 rs3 tabs)] Route: PO; 23:04 Follow up: Response: Confirmed pt not driving. ttb Signatures: Jodi Briggs RN RN ttb Mian Franco PA PA mo1 Beverly Soliman, Reg Reg ks16 Beba Urbina Rosemary RN rs3 The chart was reviewed and I authenticate all verbal orders and agree with the evaluation and treatment provided.Attachments: 23:15 [facility] Payment Agreement [email or web address] 06/23 22:54 T-Sheet-- Draft Copy klr Chart Complete MTDD
--- NOTE | 2016-06-25 00:06 | EDDOCDS ---
Nurse's Notes [facility] Name: Shiv Thomas Age: 61 yrs Sex: Male : 1955 Arrival Date: 06/22/2016 Time: 21:10 Bed TR8 Private MD: MAXX THOMAS Diagnosis: Effusion, left knee-suprapatella;Pain in left knee-degenerative joint disease Presentation: 06/22 21:22 Presenting complaint: Patient states: left knee pain and swelling. 10 pain. Here 2 ttb weeks ago and is getting worse. PCP apt next Friday. Adult Sepsis Screening: The patient does not have new or worsening altered mentation. Patient's respiratory rate is less than 22. Systolic blood pressure is greater than 100. Patient has a qSOFA score of 0- Negative Sepsis Screen. Suicide/Homicide risk assessment- the patient denies having any suicidal and/or homicidal ideations and does not present with any other emotional, behavioral or mental health complaints. 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 Transition of care: patient was not received from another setting of care. 21:22 Acuity: ALEIDA Level 4 ttb 21:22 Method Of Arrival: Walkin/Carried/Asstd ttb Triage Assessment: 21:24 General: Appears in no apparent distress, Behavior is appropriate for age. Pain: ttb Location: left knee 10. HIV screening NA for this visit Offered previously. Neurological: Level of Consciousness is awake, alert. Respiratory: No deficits noted. Airway is patent. Derm: Skin is normal. Musculoskeletal: Reports pain in lateral aspect of left knee, posterior aspect of left knee, medial aspect of left knee and left knee left knee swelling. Historical: - Allergies: no known allergies; - Home Meds: 1. Tylenol 325 mg Oral tab 2 tabs every 4 hours (Last dose: 06/22/2016 08:00) - PMHx: Arthritis; - PSHx: right knee; Thyroidectomy; - Social history: Smoking status: Patient uses tobacco products, current every day smoker. Patient/guardian denies using alcohol, street drugs, No barriers to communication noted, The patient speaks fluent Argentine, Speaks appropriately for age. - Family history: Not pertinent. - : The pt / caregiver states he / she is not on anticoagulants. Home medication list is obtained from the patient. - Exposure Risk Screening:: None identified. Screenin:02 Screening information is obtained from the patient. Fall risk: No risks identified. ttb Assistance ADL's: requires no assistance with activities of daily living. Abuse/DV Screen: The patient / caregiver reports he/she is: not in a situation that causes fear, pain or injury. Nutritional screening: No deficits noted. Advance Directives: Currently, there is no health care proxy. home support is adequate. Assessment: 23:02 General: Appears in no apparent distress, well nourished, well groomed, Behavior is ttb appropriate for age, cooperative, pleasant. Neurological: Level of Consciousness is awake, alert. Respiratory: No deficits noted. Derm: Skin is normal. Vital Signs: 21:11 BP 139 / 92; Pulse 89; Resp 18; Temp 97.2(O); Pulse Ox 100% on R/A; Weight 86.18 kg rs3 (R); Height 6 ft. 8 in. (203.20 cm) (R); 23:02 BP 156 / 96; Pulse 80; Resp 18; Pulse Ox 100% on R/A; ttb 21:11 Body Mass Index 20.87 (86.18 kg, 203.20 cm) rs3 Vitals: 21:11 Log In Time: June 22, 2016 at 21:09. [facility] ED Course: 21:10 Patient visited by Cassandra Gonzalez PCA. elp 21:10 NO HIRA THOMAS is Private Physician. elp 21:10 Patient moved to Waiting elp 21:13 Patient moved to Pre RCE elp 21:23 Triage Initiated ttb 22:12 Patient moved to Triage 2 kmg1 22:42 [facility] Franco [facility]. mo1 22:42 Carlos Souza DO is Attending Physician. mo1 22:43 Patient visited by Mian Franco PA. mo1 23:02 Patient moved to TR8 km 23:02 The patient / caregiver is instructed regarding the plan of care and ED course. ttb Accompanied by Significant Other, Patient has correct armband on for positive identification. 23:02 No IV's were initiated during this patient's visit. No procedures done that require ttb assistance. 23:02 Bryan wrap to given for home use per pt request. ttb 23:15 [facility] Payment Agreement was scanned into [email or web address] and attached to record. [email or web address] 06/23 22:54 T-Sheet-- Draft Copy was scanned into [email or web address] and attached to record. klr Administered Medications: 06/22 22:53 Drug: HYDROcodone-acetaminophen 1 tabs [hydrocodone 5 mg-acetaminophen 325 mg tablet (1 rs3 tabs)] Route: PO; 23:04 Follow up: Response: Confirmed pt not driving. ttb Order Results: There are currently no results for this order. Outcome: 22:54 Discharge ordered by Provider. mo1 23:02 Discharge Assessment: Patient awake, alert and oriented x 3. No cognitive and/or ttb functional deficits noted. Patient verbalized understanding of disposition instructions. Patient awake and alert. patient administered narcotics - yes. Pt provided with safe discharge. The following High Risk Discharge criteria are identified: None. Discharged to home ambulatory, with significant other. Condition: good Condition: stable Condition: improved. Discharge instructions given to patient, significant other, Instructed on discharge instructions, follow up and referral plans. medication usage, no driving heavy equipment, Rest, Ice, Compression and Elevation. no drinking with medication, Demonstrated understanding of instructions, medications, use of bryan wrap, no d/d with narcs Pt was receptive of discharge instructions/ teaching. Prescriptions given X 1. No special radiology studies were completed. Property :Personal belongings accompany Pt. 23:04 Patient left the ED. ttb Signatures: Ban Mei RN RN kmg1 Neyda Kothari RN RN rs3 Jodi Briggs RN RN ttb Mian Franco, FLORESITA PA mo1 Cassandra Gonzalez, GOVERNMENT SERVICES PROFESSIONAL GOVERNMENT SERVICES PROFESSIONAL elp Beverly Soliman, Reg Reg ks16 Beba Urbina Corrections: (The following items were deleted from the chart) 22:53 21:11 BP 139 / 92; Pulse 89bpm; Resp 89bpm; Pulse Ox 100% RA; Temp 97.2F Oral; 86.18 kg rs3 Reported; Height 6 ft. 8 in. Reported; BMI: 20.8; elp Chart Complete MTDD
== END 2016-06-22 23:04 | disposition home or self-care (01) ==
LOC: M ED 21:10
DX: M25.562 Pain in left knee (principal); M25.462 Effusion, left knee; M19.90 Unspecified osteoarthritis, unspecified site; F17.200 Nicotine dependence, unspecified, uncomplicated; Z79.899 Other long term (current) drug therapy

== ENCOUNTER 2016-07-11 22:02 | Emergency (ER) | payer MEDICAID, OTHER ==
[~2016-07-11] VITALS: Ht 203.2 cm; Wt 88.5 kg
[2016-07-11 22:02] VITALS: BP 155/87
[2016-07-11] MEDS ORDERED: ETOD200C31 PO (23:03)
== END 2016-07-12 00:54 | disposition left against medical advice (07) ==
LOC: M ED 23:20
DX: Z53.21 Procedure and treatment not carried out due to patient leaving prior to being seen by health care provider (principal)

== ENCOUNTER → 2016-08-31 | Outpatient (CLI) | payer MEDICAID, OTHER ==
[~2016-08-31] MED LIST: ETOD200C31 PO
--- NOTE | 2016-08-31 11:29 | ECGEPIP ---
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
== END ==
LOC: M EKG 09:09
PROVIDERS: ATTEND Orthopaedic Surgery
DX: Z01.810 Encounter for preprocedural cardiovascular examination (principal)

== ENCOUNTER → 2016-09-06 | Outpatient (REF) | payer OTHER | LOC: M SFHCLERA 11:04 | PROVIDERS: ATTEND Family Medicine | DX: Z01.818 Encounter for other preprocedural examination (principal) ==

== ENCOUNTER → 2016-09-07 | Outpatient (REF) | payer OTHER ==
[2016-09-07 11:32] LABS: ALBUMIN/GLOBULIN RATIO 1.29 (1.00-1.93); ALKALINE PHOSPHATASE 65 U/L (45-117); ALT/SGPT 14 U/L (12-78); ANION GAP 5 MEQ/L (8-16); AST/SGOT 15 U/L (15-37); BILIRUBIN,TOTAL 0.9 MG/DL (0.2-1.0); BLOOD UREA NITROGEN 5 MG/DL (7-18); CALCIUM LEVEL 8.3 MG/DL (8.8-10.2); CARBON DIOXIDE LEVEL 30 MEQ/L (21-32); CHLORIDE LEVEL 105 MEQ/L (98-107); CREATININE FOR GFR 0.87 MG/DL (0.70-1.30); GLOMERULAR FILTRATION RATE > 60.0 (>49); GLUCOSE, FASTING 100 MG/DL (80-110); POTASSIUM SERUM 4.1 MEQ/L (3.5-5.1); SODIUM LEVEL 140 MEQ/L (136-145); TOTAL PROTEIN 7.1 GM/DL (6.4-8.2)
[2016-09-07 11:34] LABS: MEAN CORPUSCULAR HEMOGLOBIN 27.6 pg (27.0-33.0); MEAN CORPUSCULAR HGB CONC 34.5 g/dl (32.0-36.5); RED CELL DISTRIBUTION WIDTH 16.6 % (11.5-14.5); WHITE BLOOD COUNT 5.4 K/mm3 (4.0-10.0)
[2016-09-07 11:41] LABS: INR 1.08
[2016-09-07 11:52] LABS: ANISOCYTOSIS 1+; BASOPHILS 2 % (0-4); EOSINOPHILS 3 % (0-5)
== END ==
LOC: M SFHCLERA 09:13
PROVIDERS: ATTEND Family Medicine
DX: Z01.818 Encounter for other preprocedural examination (principal)

== ENCOUNTER → 2016-09-13 | Outpatient (CLI) | payer OTHER ==
--- NOTE | 2016-09-13 18:54 | REP ---
CT CHEST WITHOUT CONTRAST: REASON: Followup pulmonary nodules. COMPARISON: Multiple, latest 03/06/2013 with review of lung bases images obtained during abdominal and pelvic CT of 12/22/2015. The lack of intravenous contrast decreases the sensitivity of the exam. The ascending aorta has a maximal AP dimension of 4.2 cm which is mildly ectatic and has increase from the latest prior when it measured 3.9 cm. There is no gross mediastinal or hilar adenopathy. There are no pleural or pericardiac effusions. The imaged upper abdomen and imaged osseous structures are essentially unchanged. Evaluation of the lung ledezma shows scattered asymmetric densities. The nodules seen previously in the medial basal segment of the right lower lobe has gotten smaller since the chest CT of 06/17/2012. There is a nodule in the left lower lobe which has also gotten small since that exam. There is an asymmetric pleural based entity in the right lower lobe which has developed since the last chest CT and was not imaged on the prior abdominal CT. There is a nodular density in the right upper lobe which was previously seen as a cavitary lesion and has gotten smaller since that exam. There are scattered asymmetric densities seen throughout the lung ledezma too numerous to count or individually assess, some larger, some smaller. IMPRESSION: There has been some improvement but there are chronic changes as described above. There is no Fleischner's society criteria on the recommendation for followup of such scattered abnormalities. I would recommend a [address] and pulmonary consultation. Signed by Marek Iniguez DO 09/13/2016 07:22 P
== END ==
LOC: M RAD 08:56
PROVIDERS: ATTEND Family Medicine
DX: R91.8 Other nonspecific abnormal finding of lung field (principal)

== ENCOUNTER → 2016-10-16 | Outpatient (REF) | payer OTHER ==
[2016-10-16 17:59] LABS: MEAN CORPUSCULAR HEMOGLOBIN 27.9 pg (27.0-33.0); MEAN CORPUSCULAR HGB CONC 34.6 g/dl (32.0-36.5); MEAN CORPUSCULAR VOLUME 80.6 fl (80.0-96.0); RED CELL DISTRIBUTION WIDTH 16.6 % (11.5-14.5); WHITE BLOOD COUNT 7.7 K/mm3 (4.0-10.0)
[2016-10-16 18:45] LABS: ALBUMIN 4.1 GM/DL (3.2-5.2); ANION GAP 4 MEQ/L (8-16); BLOOD UREA NITROGEN 10 MG/DL (7-18); CALCIUM LEVEL 8.9 MG/DL (8.8-10.2); CARBON DIOXIDE LEVEL 31 MEQ/L (21-32); CHLORIDE LEVEL 107 MEQ/L (98-107); CREATININE FOR GFR 0.83 MG/DL (0.70-1.30); GLOMERULAR FILTRATION RATE > 60.0 (>49); GLUCOSE, FASTING 89 MG/DL (80-110); PHOSPHORUS LEVEL 3.1 MG/DL (2.5-4.9); SODIUM LEVEL 142 MEQ/L (136-145)
== END ==
LOC: M SFHCLERA 11:42
PROVIDERS: ATTEND Family Medicine
DX: Z01.818 Encounter for other preprocedural examination (principal)

== ENCOUNTER → 2016-11-21 | Outpatient (REF) | payer OTHER ==
[2016-11-21 15:59] LABS: ADD MANUAL DIFFER YES; MEAN CORPUSCULAR HEMOGLOBIN 27.7 pg (27.0-33.0); MEAN CORPUSCULAR HGB CONC 34.6 g/dl (32.0-36.5); PLATELET COUNT, AUTOMATED 130 k/mm3 (150-450); RED CELL DISTRIBUTION WIDTH 16.5 % (11.5-14.5); WHITE BLOOD COUNT 5.6 K/mm3 (4.0-10.0)
[2016-11-21 16:38] LABS: EOSINOPHILS 4 % (0-5)
[2016-11-21 16:39] LABS: TARGET CELLS 1+
[2016-11-21 16:43] LABS: ERYTHROCYTE SEDIMENTATION RATE 3 mm/hr (0-20)
== END ==
LOC: M LABDRAW1 15:21
PROVIDERS: ATTEND Physician Assistant
DX: Z47.89 Encounter for other orthopedic aftercare (principal)

== ENCOUNTER 2016-12-03 22:46 | Emergency (ER) | payer OTHER ==
[~2016-12-03] VITALS: Ht 203.2 cm; Wt 82.2 kg
--- NOTE | 2016-12-04 01:21 | REP ---
Clinical: Trauma . Technique: AP, lateral, bilateral oblique views right ankle . Findings: Lateral swelling consist with inversion injury noted. No acute fracture or dislocation. Skeletal structures and joint spaces are intact and normal. Ankle mortise appears stable. No subcutaneous emphysema or radiodense foreign body. Impression: No cute fracture or dislocation. Lateral swelling. Signed by Soy Nevarez MD 12/04/2016 01:12 A
[2016-12-04 01:26] VITALS: BP 151/78
== END 2016-12-04 01:27 | disposition home or self-care (01) ==
LOC: M ED 22:46
DX: S90.01XA Contusion of right ankle, initial encounter (principal); W22.8XXA Striking against or struck by other objects, initial encounter; Y92.410 Unspecified street and highway as the place of occurrence of the external cause; Y93.9 Activity, unspecified; Y99.9 Unspecified external cause status; F17.200 Nicotine dependence, unspecified, uncomplicated

== ENCOUNTER → 2016-12-06 | Outpatient (CLI) | payer OTHER ==
--- NOTE | 2016-12-06 08:49 | REP ---
RIGHT ANKLE, FOUR VIEWS: There is no evidence of an acute fracture, dislocation or intrinsic bone disease. Ankle mortise is anatomic. IMPRESSION: No fracture or dislocation. Further evaluation may be made with MRI if clinically indicated. Signed by Pop Zamora MD 12/06/2016 09:03 A
== END ==
LOC: M LRY 08:21
PROVIDERS: ATTEND Family Medicine
DX: S99.911A Unspecified injury of right ankle, initial encounter (principal); W18.30XA Fall on same level, unspecified, initial encounter; Y92.009 Unspecified place in unspecified non-institutional (private) residence as the place of occurrence of the external cause

== ENCOUNTER → 2016-12-12 | Outpatient (CLI) | payer OTHER ==
--- NOTE | 2016-12-13 08:11 | REP ---
Clinical: Pain with recent trauma. Technique: AP, lateral, bilateral oblique views of the right ankle. Findings: Age-related degenerative changes along with pes planus is appreciated. No obvious acute subacute fracture identified. Mild soft tissue swelling cannot be excluded. No subcutaneous emphysema or radiodense foreign body. Ankle mortise appears intact. Impression: Age-related degenerative changes. Pes planus. No obvious acute fracture or dislocation. Signed by Soy Nevarez MD 12/13/2016 03:09 A
== END ==
LOC: M LRY 08:10
PROVIDERS: ATTEND Family Medicine
DX: M25.571 Pain in right ankle and joints of right foot (principal)

== ENCOUNTER 2017-03-27 13:29 | Emergency (ER) | payer OTHER ==
[~2017-03-27] VITALS: Ht 203.2 cm; Wt 86.3 kg
[~2017-03-27 13:29] MED LIST changes: -AVEL1TAB3 PO; -ELIQ5TAB PO; -HYDR-3713; -MOXI1TAB PO; -OXYC1TAB23 PO; -PERC5TAB12 PO
[2017-03-27] MEDS ORDERED: HYDR-3713 (13:59)
[2017-03-27] MEDS ORDERED: MOXIFLOXACIN HCL 400 MG in APPROPRIATE DILUENT 1 EA IV ONE (14:00)
[2017-03-27] MEDS ORDERED: NS 1,000 ML IV ONE (14:00)
[2017-03-27] MEDS ORDERED: ONDANSETRON 4MG/2ML VIAL (J2405) IV ONE (14:00)
[2017-03-27] MEDS ORDERED: MORPHINE 4 MG/ML 1ML SYRINGE IV ONE (14:00)
--- NOTE | 2017-03-27 14:33 | REP ---
Clinical: Right lower chest pain. Technique: Frontal view of the chest with multiple views of the right hemithorax. Findings: Frontal view of the chest demonstrates right lower lobe infiltrate/atelectasis. Multiple views of the right hemithorax demonstrates no definite acute rib fracture although a subtle nondisplaced 9th lateral rib fracture cannot be excluded. Impression: Right lower lobe infiltrate/atelectasis. Cannot exclude nondisplaced 9th rib fracture. Signed by Soy Nevarez MD 03/27/2017 02:25 P
[2017-03-27 14:50] LABS: VENOUS BASE EXCESS 1.5 (-2.0-2.0); VENOUS O2 SATURATION 53.2 % (60.0-80.0); VENOUS PARTIAL PRESSURE CO2 48.7 mmHg (38.0-50.0); VENOUS PARTIAL PRESSURE O2 29.1 mmHg (30.0-50.0); VENOUS STANDARD HCO3 24.6 MEQ/L
[2017-03-27 14:57] LABS: BASO % 0.2 % (0.0-1.0); EOS # 0.1 10^3/uL (0.0-0.50); EOS % 0.3 % (0.0-3.0); IMMATURE GRANULOCYTE % 0.6 % (0-0); LYMPH # 1.1 10^3/uL (1.5-4.5); LYMPH % 6.1 % (24.0-44.0); MEAN CORPUSCULAR HEMOGLOBIN 27.4 pg (27.0-33.0); MEAN CORPUSCULAR VOLUME 74.7 fl (80.0-96.0); MONO # 1.9 10^3/uL (0.0-0.8); MONO % 10.4 % (0.0-5.0); NEUTROPHILS # 14.6 10^3/uL (1.8-7.7); NEUTROPHILS % 82.4 % (36.0-66.0); PLATELET COUNT, AUTOMATED 102 10^3/uL (150-450); RED CELL DISTRIBUTION WIDTH 15.3 % (11.5-14.5); WHITE BLOOD COUNT 17.8 10^3/uL (4.0-10.0)
[2017-03-27 15:25] LABS: ALBUMIN 4.1 GM/DL (3.2-5.2); ALBUMIN/GLOBULIN RATIO 0.98 (1.00-1.93); ALKALINE PHOSPHATASE 64 U/L (45-117); ALT/SGPT 14 U/L (12-78); ANION GAP 5 MEQ/L (8-16); AST/SGOT 32 U/L (7-37); BILIRUBIN,DIRECT 0.4 MG/DL (0.0-0.2); BLOOD UREA NITROGEN 15 MG/DL (7-18); CALCIUM LEVEL 9.2 MG/DL (8.8-10.2); CARBON DIOXIDE LEVEL 30 MEQ/L (21-32); CHLORIDE LEVEL 102 MEQ/L (98-107); CREATININE FOR GFR 1.03 MG/DL (0.70-1.30); GLOMERULAR FILTRATION RATE > 60.0 (>49); GLUCOSE, FASTING 118 MG/DL (80-110); MEAN CORPUSCULAR HGB CONC 36.7 g/dl (32.0-36.5); SODIUM LEVEL 137 MEQ/L (136-145); TOTAL PROTEIN 8.3 GM/DL (6.4-8.2)
[2017-03-27] MEDS ORDERED: PERC5TAB12 PO (15:35)
[2017-03-27] MEDS ORDERED: AVEL1TAB3 PO (15:35)
--- NOTE | 2017-03-27 15:36 | ECGEPIP ---
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
[2017-03-27] MEDS ORDERED: MORPHINE 2 MG/ML 1ML SYRINGE IV ONE (16:00)
[2017-03-27 17:37] VITALS: BP 130/69
== END 2017-03-27 18:00 | disposition home or self-care (01) ==
LOC: EDBD 13:29 → M ED 13:29
DX: S22.31XA Fracture of one rib, right side, initial encounter for closed fracture (principal); X58.XXXA Exposure to other specified factors, initial encounter; Y92.9 Unspecified place or not applicable; Y93.9 Activity, unspecified; Y99.9 Unspecified external cause status; J18.1 Lobar pneumonia, unspecified organism; R00.0 Tachycardia, unspecified; I51.7 Cardiomegaly; F17.200 Nicotine dependence, unspecified, uncomplicated; Z82.49 Family history of ischemic heart disease and other diseases of the circulatory system; Z79.01 Long term (current) use of anticoagulants; Z79.899 Other long term (current) drug therapy
CPT/HCPCS: 71101; 80048; 80076; 82550; 82553; 82803; 85025; 87040; 93000; 93041; 96374; 96375; 99285; J2280; J2405

== ENCOUNTER → 2017-03-27 | Outpatient (CLI) | payer OTHER ==
[~2017-03-27] MED LIST changes: +AVEL1TAB3 PO; +ELIQ5TAB PO; +HYDR-3713; +MOXI1TAB PO; +OXYC1TAB23 PO; +PERC5TAB12 PO
--- NOTE | 2017-03-27 13:28 | REP ---
Clinical: Flank pain. Technique: PA and lateral. Comparison: 06/13/2016. Findings: Right lower lobe infiltrate compatible with acute pneumonia and small pleural effusion/reaction. Mediastinum and cardiac silhouette are normal. No pneumothorax. Skeletal structures intact. Impression: Right lower lobe infiltrate compatible with pneumonia and small pleural reaction. Follow-up to resolution recommended. Signed by Soy Nevarez MD 03/27/2017 01:20 P
--- NOTE | 2017-03-28 14:32 | REP ---
Clinical: Flank pain Technique: Frontal view of the chest with multiple views of the right hemithorax. Findings: Frontal view of the chest suggests right basilar atelectasis. Multiple views of the right right hemithorax demonstrates no obvious acute rib fracture or pathology. Impression: Right basilar atelectasis. No acute rib fracture identified. Signed by Soy Nevarez MD 03/27/2017 01:17 P
== END ==
LOC: M LRY 12:03
PROVIDERS: ATTEND Family Medicine
DX: R91.8 Other nonspecific abnormal finding of lung field (principal); J98.11 Atelectasis

== ENCOUNTER 2017-03-31 14:20 | Inpatient (IN) | payer OTHER ==
[~2017-03-31] VITALS: Ht 203.2 cm; Wt 72.0 kg
[~2017-03-31 14:20] MED LIST changes: +AVEL1TAB3 PO; +HYDR-3713; +PERC5TAB12 PO
[2017-03-31 15:33] LABS: BASO # 0.1 10^3/uL (0.0-0.2); BASO % 0.4 % (0.0-1.0); EOS # 0.2 10^3/uL (0.0-0.50); EOS % 1.5 % (0.0-3.0); IMMATURE GRANULOCYTE % 0.5 % (0-0); LYMPH # 2.2 10^3/uL (1.5-4.5); LYMPH % 13.5 % (24.0-44.0); MEAN CORPUSCULAR HEMOGLOBIN 26.6 pg (27.0-33.0); MEAN CORPUSCULAR HGB CONC 36.1 g/dl (32.0-36.5); MEAN CORPUSCULAR VOLUME 73.8 fl (80.0-96.0); MONO % 11.9 % (0.0-5.0); NEUTROPHILS # 11.9 10^3/uL (1.8-7.7); NEUTROPHILS % 72.2 % (36.0-66.0); PLATELET COUNT, AUTOMATED 208 10^3/uL (150-450); RED CELL DISTRIBUTION WIDTH 16.8 % (11.5-14.5); WHITE BLOOD COUNT 16.4 10^3/uL (4.0-10.0)
[2017-03-31 15:42] LABS: ANION GAP 6 MEQ/L (8-16); BLOOD UREA NITROGEN 13 MG/DL (7-18); CARBON DIOXIDE LEVEL 29 MEQ/L (21-32); CHLORIDE LEVEL 103 MEQ/L (98-107); CREATININE FOR GFR 0.95 MG/DL (0.70-1.30); GLOMERULAR FILTRATION RATE > 60.0 (>49); GLUCOSE, FASTING 107 MG/DL (80-110); POTASSIUM SERUM 4.7 MEQ/L (3.5-5.1); SODIUM LEVEL 138 MEQ/L (136-145)
[2017-03-31] MEDS ORDERED: IPRATROPIUM 0.5MG/ALBUTEROL 2.5MG INH SOL UD 3ML (DUONEB)(J7620) NEB ONE (15:45)
[2017-03-31] MEDS ORDERED: NORCO, ANEXSIA 5/325MG TABLET (HYDROcodone/ACETAMINOPHEN) PO ONE (15:45)
[2017-03-31] MEDS ORDERED: methylPREDNISolone INJ 125 MG/2 ML VIAL (J2930) IV ONE (15:45)
--- NOTE | 2017-03-31 15:52 | REP ---
Clinical: Acute cough and dyspnea. Technique: PA and lateral. Comparison: 03/27/2017. Findings: Increasing right lower lobe infiltrate and pleural reaction consistent with acute pneumonia. Mediastinum and cardiac silhouette are stable. Skeletal structures demonstrate age-related degenerative changes. Impression: Acute right lower lobe pneumonia increased from prior examination and requires followup to resolution. Signed by Soy Nevaerz MD 03/31/2017 03:44 P
[2017-03-31 16:40] LABS: ABG BASE EXCESS 4.1 (-2.0-2.0); ABG HCO3 26.7 MEQ/L (22.0-26.0); ABG PARTIAL PRESSURE CO2 33.4 mmHg (35.0-45.0); ABG PARTIAL PRESSURE O2 51.4 mmHg (75.0-100.0); ABG STANDARD HCO3 27.9 MEQ/L (22.0-26.0); ABG TOTAL CO2 27.7 MEQ/L (23.0-31.0)
[2017-03-31] MEDS ORDERED: LevoFLOXacin 750 MG TABLET PO ONE (17:15)
[2017-03-31] MEDS ORDERED: MOXI1TAB PO (17:53)
[2017-03-31] MEDS ORDERED: OXYC1TAB23 PO (17:53)
[2017-03-31] MEDS ORDERED: ONDANSETRON 4 MG TAB (S0181) PO PRN (18:00)
[2017-03-31 18:41] LABS: MEAN CORPUSCULAR HEMOGLOBIN 26.8 pg (27.0-33.0); MEAN CORPUSCULAR HGB CONC 36.9 g/dl (32.0-36.5); MEAN CORPUSCULAR VOLUME 72.6 fl (80.0-96.0); PLATELET COUNT, AUTOMATED 217 10^3/uL (150-450); RED CELL DISTRIBUTION WIDTH 16.7 % (11.5-14.5); WHITE BLOOD COUNT 15.9 10^3/uL (4.0-10.0)
--- NOTE | 2017-03-31 19:05 | HPEPDOC ---
General Date of Admission 03/31/2017 Primary Care Physician: RACHEAL STEPHENSON MD Attending Physician: MICHELLE HAINES MD Chief Complaint The patient is a 62-year-old male admitted with a reason for visit of breathing difficulty. Source: Patient, RN notes reviewed, Old records Exam Limitations: No limitations Timing/Duration: Day(s) Associated Symptoms: Cough, Shortness of breath History of Present Illness Mr. Thomas is a 62-year-old male who presents to [facility]'s Emergency Department with increasing shortness of breath. Past medical history is significant for: sickle cell disease, history of anemia of chronic disease, tobacco dependence, history of pulmonary nodules and cavitary lesions, osteoarthritis, right knee pain, and insomnia. Patient states that he had a left knee arthroscopy performed two weeks ago on . This is the second arthroscopic attempt on the left knee. He states that on Friday he developed acute shortness of breath with exertion that did not appear to have any inciting event. Something like this has never happened before. He presented to his primary care provider who urged him to present to the Emergency Department. During his evaluation in the ED he was administered IV Moxifloxacin and discharged on oral medication. Patient says it was "an orange pill." His breathing and shortness of breath did not improve. He used a relative's oxygen because he became so short of breath. He does not use oxygen at home. Also developed a right sided anterior chest pain that he can localize with one finger. No radiating pain, diaphoresis, fever, nausea, vomiting, or abdominal pain. Admits to cough productive of white phlegm. Presented to his orthopedist today to have the sutures removed from his left arthroscopy. Due to his shortness of breath his orthopedist performed a left lower extremity ultrasound which the patient said was negative for a clot. Patient was advised to return to the ED for evaluation of his continued and worsening shortness of breath. ED evaluation includes obtaining blood cultures, providing IV antibiotics, administering IV steroids, an obtaining a chest x-ray. Leukocytosis of 16.4 without a lactic acidosis. CRP was not elevated. ABG shows respiratory alkalosis with possible underlying chronic acidosis secondary to O2 retention. Chest x-ray showed "Acute right lower lobe pneumonia increased from prior examination and requires followup to resolution." Hospitalist service was consulted and patient was admitted for further medical management. Home Medications Scheduled Apixaban Base (Eliquis) 5 Mg Tab, 5 MG PO ASDIRECTED 10 MG (2 TABS) TWICE PER DAY FOR 7 DAYS THEN 5 MG (1 TAB) TWICE PER DAY Moxifloxacin Hydrochloride (Moxifloxacin HCl) 400 Mg Tab, 400 MG PO DAILY, ( Reported) FILLED 03/27 FOR 10 DAYS Scheduled PRN Oxycodone/Acetaminophen (Oxycodone/Acetaminophen 5-325 mg) 1 Tab Tab, 1 TAB PO Q4H PRN for PAIN, (Reported) Allergies Coded Allergies: No Known Allergies (Verified , 07/11/16) Past Medical History Medical History 1. Sickle cell disease 2. History of anemia of chronic disease 3. Tobacco dependence 4. History of pulmonary nodules and cavitary lesions 5. Osteoarthritis 6. Right knee pain 7. Insomnia. Surgical History 1. Cholecystectomy 2. Thyroidectomy, partial 3. Right knee arthroscopy 4. Left knee arthroscopy x2 Family History Father: , 92, brain cancer Mother: , 72, unknown Siblings: - 5 brothers - 6 sisters Social History Lives independently with girlfriend, John. Admits to two cats and two dogs in the home. Currently smokes two cigarettes a day; down from 1.5 PPD for 48 years. Previously employed in [employer]. Denies any children. No travel history. No alcohol or illicit drug use. Review of Symptoms Constitutional: Denies: Chills, Fever, Night Sweats, Weakness Eyes: Denies: Pain, Vision change ENT: Denies: Head Aches, Dysphagia, Sinus Congestion, Post Nasal Drip, Sore Throat, Epistaxis Skin: Denies: Rash, Lesions, Bruising Pulmonary: Reports: Dyspnea, Cough (Productive of white phlegm), Other Symptoms (Right-sided anterior chest pain) Cardiovascular: Reports: Chest Pain, Denies: Orthopnea, Paroxysmal Noc. Dyspnea, Edema, Lt Headedness Gastrointestinal: Denies: Nausea, Vomiting, Abdominal Pain, Diarrhea, Constipation, Melena, Hematochezia Genitourinary: Denies: Dysuria, Frequency, Incontinence, Hematuria Hematologic: Denies: Bruising, Bleeding Excessively, Petecchia, Purpura, Enlarged Lymph Nodes Musculoskeletal: Reports: Joint Pain (Left knee), Denies: Neck Pain, Back Pain, Muscle Pain Neurological: Denies: Weakness, Numbness Physical Examination General Exam: Positive: Alert, Cooperative, No Acute Distress Eye Exam: Positive: PERRLA, Conjunctiva & lids normal, EOMI, Negative: Sclera icteric, Ptosis ENT Exam: Positive: Atraumatic, Pharynx Normal, Tongue Midline, Nares Patent, Negative: Mucous membr. moist/pink (Somewhat dry), Pharyngeal Edema Neck Exam: Positive: Supple, +2 carotid pulse wo bruit, Negative: thyromegaly, Lymphadenopathy Chest Exam: Positive: Rales (Right lower lobe), Other (Poor respiratory effort) Heart Exam: Positive: Rate Normal, Tachycardic, Regular Rhythm, Normal S1, Normal S2, Negative: Gallops, Murmurs, Rubs Telemetry: Positive: Tachycardia Abdomen Exam: Positive: Normal bowel sounds, Soft, Negative: Tenderness, Hepatospenomegaly, Mass, Hernia Extremity Exam: Positive: Normal pulses (Tachycardic), Negative: Clubbing, Cyanosis, Edema, Tenderness, Swelling Skin Exam: Negative: Rash, Lesion Neuro Exam: Positive: Normal Speech, Cranial Nerves 3-12 NL Psych Exam: Positive: Oriented x 3 Other physical findings Chest x-ray IMPRESSION: Acute right lower lobe pneumonia increased from prior examination and requires followup to resolution. Vital Signs Vital Signs Date Time Temp Pulse Resp B/P (MAP) Pulse Ox O2 Delivery O2 Flow Rate FiO2 03/31/17 17:40 18 03/31/17 17:29 Nasal Cannula 2.0 03/31/17 17:29 03/31/17 17:20 100 98 03/31/17 14:31 97.7 Height (in): 80 Weight (kg): 90 BMI (kg): 21.8 Laboratory Data Labs 24H Laboratory Tests 2 03/31/17 14:46: Immature Granulocyte % (Auto) 0.5H, White Blood Count 16.4H, Red Blood Count 4.73, Hemoglobin 12.6L, Hematocrit 34.9L, Mean Corpuscular Volume 73.8L, Mean Corpuscular Hemoglobin 26.6L, Mean Corpuscular Hemoglobin Concent 36.1, Red Cell Distribution Width 16.8H, Platelet Count 208, Neutrophils (%) (Auto) 72.2H , Lymphocytes (%) (Auto) 13.5L, Monocytes (%) (Auto) 11.9H, Eosinophils (%) ( Auto) 1.5, Basophils (%) (Auto) 0.4, Neutrophils # (Auto) 11.9H, Lymphocytes # ( Auto) 2.2, Monocytes # (Auto) 2.0H, Eosinophils # (Auto) 0.2, Basophils # (Auto ) 0.1, Immature Granulocyte # (Auto) 0.1H, Nucleated Red Blood Cells % (auto) 0.3H, Anion Gap 6L, Glomerular Filtration Rate > 60.0, Lactic Acid Level 1.1, Blood Urea Nitrogen 13, Creatinine 0.95, Sodium Level 138, Potassium Level 4.7, Chloride Level 103, Carbon Dioxide Level 29, Calcium Level 9.0 03/31/17 16:34: Blood Gas Bicarbonate Standard 27.9H, Arterial Blood pH 7.520H, Arterial Blood Partial Pressure CO2 33.4L, Arterial Blood Partial Pressure O2 51.4L, Arterial Blood Total CO2 27.7, Arterial Blood HCO3 26.7H, Arterial Blood Base Excess 4.1H , Arterial Blood Oxygen Saturation 88.4L 03/31/17 18:21: CBC/BMP Laboratory Tests 03/31/17 14:46 Red Blood Count 4.73, Mean Corpuscular Volume 73.8 L, Mean Corpuscular Hemoglobin 26.6 L, Mean Corpuscular Hemoglobin Concent 36.1, Red Cell Distribution Width 16.8 H, Neutrophils (%) (Auto) 72.2 H, Lymphocytes (%) (Auto ) 13.5 L, Monocytes (%) (Auto) 11.9 H, Eosinophils (%) (Auto) 1.5, Basophils (% ) (Auto) 0.4, Neutrophils # (Auto) 11.9 H, Lymphocytes # (Auto) 2.2, Monocytes # (Auto) 2.0 H, Eosinophils # (Auto) 0.2, Basophils # (Auto) 0.1, Calcium Level 9.0 Microbiology Microbiology 03/31/17 Blood Culture, Received Pending 03/31/17 Blood Culture, Received Pending RAD Interpretation STUDY: CXR Rad Actions: Report Reviewed Plan / VTE VTE Prophylaxis Ordered?: Yes (Heparin 5,000 units SC every 8 hours) Plan Plan Right lower lower consolidation, possibly CAP - IV Ceftriaxone, Azithromycin - Oxygen therapy order to titrate > 94% on NC - NS @75mLs/hr - Blood cultures - Sputum cultures - Consider evaluating for acute chest syndrome if patient does not show improvement symptomatically Chest pain - R/O cardiac - Serial cardiac markers, first set negative - EKG - Admit to PCU - Tylenol as needed for pain Sickle cell disease - No active therapy at this time - Could consider symptomatic relief for acute chest syndrome if patient deteriorates clinically Tobacco dependence - Could consider Nicotine patch if patient desires IVF: Initiate (NS @75mLs/hr) Diet: Continue Current (Regular) Activity: Continue Current (Activity as tolerated) Medications: Change to IV (Ceftriaxone and Azithromycin), Start Antibiotics Respiratory: Other Respiratory (Titrate oxygen to > 94% on NC) Diagnostics: Check Labs, Repeat Labs in AM, Obtain Cultures Anticipated Discharge: Home GME ATTESTATION GME ATTESTATION My faculty preceptor for this patient encounter was physically present during the encounter and was fully available. All aspects of the patient interview, examination, medical decision making process, and medical care plan development were reviewed and approved by the faculty preceptor. The faculty preceptor is aware and concurs with the plan as stated in the body of this note and will attest to such by his/her cosignature. ATTENDING NOTE I, Michelle Haines, have both independently examined this patient as well as reviewed the documentation. I have discussed in detail with the resident the findings and plan of treatment as documented in the residents documentation. I will continue to follow the patient and offer further guidance to the patients care as necessary during this hospital stay. LETICIA PENG DO Mar 31, 2017 19:05 MICHELLE HAINES MD Apr 04, 2017 16:00
--- NOTE | 2017-03-31 21:22 | ECGEPIP ---
Stationary ECG Study 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
[2017-03-31 21:55] VITALS: BP 122/75
[2017-03-31] MEDS: AZITHROMYCIN INJ 500 MG, VIAL MATE ADAPTER 1 EACH in D5W 250 ML IV SCH (21:59)
[2017-03-31] MEDS: NS 1,000 ML IV SCH (22:12)
[2017-03-31] MEDS: HEPARIN SOD (PORCINE) 5000 UNITS/ML VIAL SC SCH (22:13)
[2017-03-31 22:16] VITALS: PULSE 86
[2017-03-31] MEDS: ACETAMINOPHEN TAB 650MG DOSE (2X325MG) PO PRN (22:16)
[2017-03-31] MEDS: CEFTRIAXONE SOD 1 GM in APPROPRIATE DILUENT 1 EA IV SCH (23:22)
[2017-04-01 00:09] VITALS: BP 121/73
[2017-04-01 03:51] VITALS: BP 119/70
[2017-04-01] MEDS: ACETAMINOPHEN TAB 650MG DOSE (2X325MG) PO PRN ×2 (04:03→20:54)
[2017-04-01] MEDS: HEPARIN SOD (PORCINE) 5000 UNITS/ML VIAL SC SCH (05:22)
[2017-04-01 07:10] LABS: BASO % 0.1 % (0.0-1.0); EOS % 0.2 % (0.0-3.0); IMMATURE GRANULOCYTE % 0.4 % (0-0); LYMPH # 1.8 10^3/uL (1.5-4.5); LYMPH % 11.2 % (24.0-44.0); MEAN CORPUSCULAR HEMOGLOBIN 26.5 pg (27.0-33.0); MEAN CORPUSCULAR VOLUME 72.4 fl (80.0-96.0); MONO # 1.7 10^3/uL (0.0-0.8); MONO % 10.6 % (0.0-5.0); NEUTROPHILS # 12.4 10^3/uL (1.8-7.7); NEUTROPHILS % 77.5 % (36.0-66.0); PLATELET COUNT, AUTOMATED 229 10^3/uL (150-450); RED CELL DISTRIBUTION WIDTH 16.5 % (11.5-14.5)
[2017-04-01 07:12] LABS: MEAN CORPUSCULAR HGB CONC 36.6 g/dl (32.0-36.5)
[2017-04-01 07:20] LABS: ANION GAP 7 MEQ/L (8-16); BLOOD UREA NITROGEN 13 MG/DL (7-18); CALCIUM LEVEL 8.9 MG/DL (8.8-10.2); CARBON DIOXIDE LEVEL 27 MEQ/L (21-32); CHLORIDE LEVEL 105 MEQ/L (98-107); CREATININE FOR GFR 0.78 MG/DL (0.70-1.30); GLOMERULAR FILTRATION RATE > 60.0 (>49); GLUCOSE, FASTING 119 MG/DL (80-110); SODIUM LEVEL 139 MEQ/L (136-145)
[2017-04-01] MEDS: NS 1,000 ML IV SCH ×2 (07:35→20:55)
[2017-04-01] MEDS: APIXABAN 5 MG TAB (ELIQUIS) PO SCH ×2 (09:00→20:54)
[2017-04-01] MEDS: NICOTINE 14 MG/24 HR TRANSDERMAL TD SCH (09:00)
[2017-04-01] MEDS ORDERED: ISOVUE-370 76% 100ML VIAL (Q9967) As Ordered ONE (09:41)
--- NOTE | 2017-04-01 09:43 | IPNPDOC ---
Date Seen The patient was seen on 04/01/17. Progress Note SUBJECTIVE: Patient is a 62-year-old male with shortness of breath found to have pneumonia on imaging. Has a history of sickle cell disease. No family history of sickle cell disease that patient is aware of. Admits to some blood-tinged nasal secretions secondary to nasal cannula. States that the right sided anterior chest pain has moved down. He points to the mid-lateral aspect of his right anterior chest, approximately at the level of rib 8-9, that he describes as an ache and is somewhat painful to palpation. Denies fever, night sweats, chills. Admits to continued cough and shortness of breath. OBJECTIVE PHYSICAL EXAMINATION: VITAL SIGNS: Please see below. GENERAL: male, wearing hospital gown, appears older than stated age, in no acute distress HEENT: Atraumatic, normocephalic, PERRL, EOMI, wearing a beanie on head, nasal septum with NC in place, oral mucosa appears pink and moist CARDIOVASCULAR: Regular rate and rhythm, normal S1 and S2, no murmur, rub, click RESPIRATORY: Crackles appreciated in the right middle/lower lobe, adequate inspiratory and expiratory airway excursion ABDOMINAL: Flat, soft, non-tender, non-distended, bowel sounds appreciated, no organomegaly EXTREMITIES: Radial and posterior tibial pulses equal and symmetrical, +2, no peripheral edema NEUROLOGICAL: CN II-XII grossly intact PSYCHOLOGICAL: Alert and conversant, pleasant LABORATORY DATA: Please see below. MICROBIOLOGY: Please see below. DVT prophylaxis ordered?: Heparin 5,000 units SC every 8 hours. ASSESSMENT AND PLAN: This is a 62-year-old male with cough, shortness of breath and found to have possible pneumonia on imaging. PROBLEMS: 1. CAP: Currently on Ceftriaxone and Azithromycin. Not much change to leukocytosis. Obtaining CT angiogram of the chest to R/O pulmonary embolism. 2. Right-sided chest pain: Tylenol as needed for pain. Obtaining CT angiogram of the chest. History of sickle cell disease. Could consider acute chest syndrome. IVF with NS @75mLs/hr. Oxygen via NC. Will be adding humidification. 3. Sickle cell disease: Confirmed via Hgb electrophoresis in 2014. Still has spleen. No history of crisis or acute chest syndrome. Continue with IVF and oxygen. 4. Tobacco dependence: Nicotine patch, if desired. DISPOSITION: Admitted. Obtaining CT angiogram of the chest. VS, I&O, 24H, Fishbone Vital Signs/I&O Vital Signs Date Time Temp Pulse Resp B/P (MAP) Pulse Ox O2 Delivery O2 Flow Rate FiO2 04/01/17 08:00 Nasal Cannula 2.0 04/01/17 03:51 98.4 71 20 119/70 (86) 99 I&O- Last 24 Hours up to 6 AM 04/02/17 06:00 Intake Total 515 ml Balance 515 ml Laboratory Data 24H LABS Laboratory Tests 2 03/31/17 14:46: Immature Granulocyte % (Auto) 0.5H, White Blood Count 16.4H, Red Blood Count 4.73, Hemoglobin 12.6L, Hematocrit 34.9L, Mean Corpuscular Volume 73.8L, Mean Corpuscular Hemoglobin 26.6L, Mean Corpuscular Hemoglobin Concent 36.1, Red Cell Distribution Width 16.8H, Platelet Count 208, Neutrophils (%) (Auto) 72.2H , Lymphocytes (%) (Auto) 13.5L, Monocytes (%) (Auto) 11.9H, Eosinophils (%) ( Auto) 1.5, Basophils (%) (Auto) 0.4, Neutrophils # (Auto) 11.9H, Lymphocytes # ( Auto) 2.2, Monocytes # (Auto) 2.0H, Eosinophils # (Auto) 0.2, Basophils # (Auto ) 0.1, Immature Granulocyte # (Auto) 0.1H, Nucleated Red Blood Cells % (auto) 0.3H, Anion Gap 6L, Glomerular Filtration Rate > 60.0, Lactic Acid Level 1.1, Blood Urea Nitrogen 13, Creatinine 0.95, Sodium Level 138, Potassium Level 4.7, Chloride Level 103, Carbon Dioxide Level 29, Calcium Level 9.0 03/31/17 16:34: Blood Gas Bicarbonate Standard 27.9H, Arterial Blood pH 7.520H, Arterial Blood Partial Pressure CO2 33.4L, Arterial Blood Partial Pressure O2 51.4L, Arterial Blood Total CO2 27.7, Arterial Blood HCO3 26.7H, Arterial Blood Base Excess 4.1H , Arterial Blood Oxygen Saturation 88.4L 03/31/17 18:21: Nucleated Red Blood Cells % (auto) 0.3H, Total Creatine Kinase 67, Creatine Kinase MB 1.0, Creatine Kinase MB Relative Index 1.49, Troponin I 0.10 04/01/17 02:14: Total Creatine Kinase 51, Creatine Kinase MB 1.0, Creatine Kinase MB Relative Index 1.96, Troponin I 0.07# 04/01/17 06:51: Immature Granulocyte % (Auto) 0.4H, White Blood Count 16.0H, Red Blood Count 4.45, Hemoglobin 11.8L, Hematocrit 32.2L, Mean Corpuscular Volume 72.4L, Mean Corpuscular Hemoglobin 26.5L, Mean Corpuscular Hemoglobin Concent 36.6H, Red Cell Distribution Width 16.5H, Platelet Count 229, Neutrophils (%) (Auto) 77.5H , Lymphocytes (%) (Auto) 11.2L, Monocytes (%) (Auto) 10.6H, Eosinophils (%) ( Auto) 0.2, Basophils (%) (Auto) 0.1, Neutrophils # (Auto) 12.4H, Lymphocytes # ( Auto) 1.8, Monocytes # (Auto) 1.7H, Eosinophils # (Auto) 0.0, Basophils # (Auto ) 0.0, Immature Granulocyte # (Auto) 0.1H, Nucleated Red Blood Cells % (auto) 0.3H, Anion Gap 7L, Glomerular Filtration Rate > 60.0, Blood Urea Nitrogen 13, Creatinine 0.78, Sodium Level 139, Potassium Level 4.0, Chloride Level 105, Carbon Dioxide Level 27, Calcium Level 8.9 04/01/17 09:13: CBC/BMP Laboratory Tests 03/31/17 14:46 Red Blood Count 4.73, Mean Corpuscular Volume 73.8 L, Mean Corpuscular Hemoglobin 26.6 L, Mean Corpuscular Hemoglobin Concent 36.1, Red Cell Distribution Width 16.8 H, Neutrophils (%) (Auto) 72.2 H, Lymphocytes (%) (Auto ) 13.5 L, Monocytes (%) (Auto) 11.9 H, Eosinophils (%) (Auto) 1.5, Basophils (% ) (Auto) 0.4, Neutrophils # (Auto) 11.9 H, Lymphocytes # (Auto) 2.2, Monocytes # (Auto) 2.0 H, Eosinophils # (Auto) 0.2, Basophils # (Auto) 0.1, Calcium Level 9.0 03/31/17 18:21 Red Blood Count 4.63, Mean Corpuscular Volume 72.6 L, Mean Corpuscular Hemoglobin 26.8 L, Mean Corpuscular Hemoglobin Concent 36.9 H, Red Cell Distribution Width 16.7 H 04/01/17 06:51 Red Blood Count 4.45, Mean Corpuscular Volume 72.4 L, Mean Corpuscular Hemoglobin 26.5 L, Mean Corpuscular Hemoglobin Concent 36.6 H, Red Cell Distribution Width 16.5 H, Neutrophils (%) (Auto) 77.5 H, Lymphocytes (%) (Auto ) 11.2 L, Monocytes (%) (Auto) 10.6 H, Eosinophils (%) (Auto) 0.2, Basophils (% ) (Auto) 0.1, Neutrophils # (Auto) 12.4 H, Lymphocytes # (Auto) 1.8, Monocytes # (Auto) 1.7 H, Eosinophils # (Auto) 0.0, Basophils # (Auto) 0.0, Calcium Level 8.9 Microbiology Microbiology 03/31/17 Blood Culture, Received Pending 03/31/17 Blood Culture, Received Pending 04/01/17 Gram Stain, Received Pending 04/01/17 Sputum Culture, Received Pending LETICIA PENG DO Apr 01, 2017 09:43
--- NOTE | 2017-04-01 10:23 | REP ---
Clinical: History of sickle cell disease, pneumonia and acute shortness of breath. Technique: Axial contrast enhanced images from the thoracic inlet to the upper abdomen using 100 ml Isovue 370 intravenous contrast material with multiplanar MIP re-formations. Comparison: 09/13/2016. Findings: Satisfactory enhancement of the pulmonary vasculature is achieved and multiple bilateral pulmonary emboli are appreciated extending into the left upper lobe, right upper lobe, right middle lobe and bilateral lower lobes. Associated right middle lobe and right lower lobe consolidations/pneumonia and minimal left lower lobe atelectasis is appreciated. Thoracic aorta is normal and without aneurysm or dissection. Cardiomegaly appreciated without pericardial effusion. Reactive mediastinal and right hilar adenopathy is identified. No pleural effusion. No pneumothorax. Surrounding musculoskeletal structures demonstrate degenerative changes. Impression: 1. Moderate diffuse bilateral pulmonary emboli with associated right middle lobe and right lower lobe consolidations and trace left basilar atelectasis. 2. Normal thoracic aorta. Cardiomegaly. Signed by Soy Nevarez MD 04/01/2017 10:14 A
[2017-04-01] MEDS ORDERED: ELIQ5TAB PO (10:38)
--- NOTE | 2017-04-01 13:24 | REP ---
Clinical: Pain and swelling with acute pulmonary embolus . Technique: Zamora scale and color Doppler evaluation using linear high frequency transducer. Findings: Ultrasound examination of the right and left lower extremity deep venous structures from the common femoral vein to the popliteal vein demonstrates normal compressibility flow and wave patterns in response to respiration and augmentation. There is no evidence for deep venous thrombosis. Impression: No evidence for deep venous thrombosis. Signed by Soy Nevarez MD 04/01/2017 01:16 P
[2017-04-01 14:20] VITALS: BP 125/80
[2017-04-01] MEDS: PERCOCET 5MG/325MG TAB PO PRN (17:13)
[2017-04-01] MEDS: AZITHROMYCIN INJ 500 MG, VIAL MATE ADAPTER 1 EACH in D5W 250 ML IV SCH (20:55)
[2017-04-01 21:00] VITALS: BP 117/72
[2017-04-01] MEDS: CEFTRIAXONE SOD 1 GM in APPROPRIATE DILUENT 1 EA IV SCH (23:01)
[2017-04-02] MEDS: PERCOCET 5MG/325MG TAB PO PRN ×3 (05:08→23:09)
[2017-04-02 06:00] VITALS: BP 142/82
[2017-04-02 06:24] LABS: BASO % 0.2 % (0.0-1.0); EOS # 0.4 10^3/uL (0.0-0.50); EOS % 2.4 % (0.0-3.0); IMMATURE GRANULOCYTE % 0.5 % (0-0); LYMPH # 1.6 10^3/uL (1.5-4.5); LYMPH % 9.6 % (24.0-44.0); MEAN CORPUSCULAR HEMOGLOBIN 26.6 pg (27.0-33.0); MEAN CORPUSCULAR HGB CONC 36.4 g/dl (32.0-36.5); MEAN CORPUSCULAR VOLUME 73.1 fl (80.0-96.0); MONO # 1.8 10^3/uL (0.0-0.8); MONO % 10.7 % (0.0-5.0); NEUTROPHILS # 12.8 10^3/uL (1.8-7.7); NEUTROPHILS % 76.6 % (36.0-66.0); PLATELET COUNT, AUTOMATED 242 10^3/uL (150-450); RED CELL DISTRIBUTION WIDTH 16.5 % (11.5-14.5); WHITE BLOOD COUNT 16.7 10^3/uL (4.0-10.0)
[2017-04-02 06:30] LABS: ANION GAP 4 MEQ/L (8-16); BLOOD UREA NITROGEN 10 MG/DL (7-18); CALCIUM LEVEL 8.4 MG/DL (8.8-10.2); CARBON DIOXIDE LEVEL 28 MEQ/L (21-32); CHLORIDE LEVEL 107 MEQ/L (98-107); CREATININE FOR GFR 0.79 MG/DL (0.70-1.30); GLOMERULAR FILTRATION RATE > 60.0 (>49); GLUCOSE, FASTING 123 MG/DL (80-110); POTASSIUM SERUM 3.7 MEQ/L (3.5-5.1); SODIUM LEVEL 139 MEQ/L (136-145)
[2017-04-02] MEDS: APIXABAN 5 MG TAB (ELIQUIS) PO SCH ×2 (08:41→21:08)
[2017-04-02] MEDS: ACETAMINOPHEN TAB 650MG DOSE (2X325MG) PO PRN (08:41)
[2017-04-02] MEDS: NICOTINE 14 MG/24 HR TRANSDERMAL TD SCH (08:42)
--- NOTE | 2017-04-02 09:30 | IPNPDOC ---
Date Seen The patient was seen on 04/02/17. Progress Note SUBJECTIVE: Patient is a 62-year-old male with pneumonia and found to have bilateral pulmonary emboli. Patient is evaluated at bedside this morning. He states that he will be ambulating today and possibly taking a shower. Reports that his breathing has improved. Continues to report a right- sided lower chest discomfort that he states has not changed in character or location. Denies bruising. Has some blood tinged nasal secretions that he attributes to nasal cannula that causes his nasal passages to dry out. Denies fever, night sweats, chills. OBJECTIVE PHYSICAL EXAMINATION: VITAL SIGNS: Please see below. GENERAL: Elderly male, appears stated age, wearing hospital gown, no acute distress HEENT: Atraumatic, normocephalic, PERRL, EOMI, wearing a beanie, oral mucosa appears pink and moist, nasal septum with NC in place, nares are patent CARDIOVASCULAR: Regular rate and rhythm, normal S1 and S2, no murmur, rub, click RESPIRATORY: Somewhat diminished breath sounds in the right lower lobe, adequate inspiratory and expiratory airway excursion, no wheeze, rhonchi, crackles ABDOMINAL: Flat, soft, non-tender, non-distended, right-sided lateral chest pain that is reproducible with palpation EXTREMITIES: Radial and posterior tibial pulses equal and symmetrical, +2, left knee is somewhat edematous without erythema, two small incisions appreciated with tape approximating the edges, no ecchymoses NEUROLOGICAL: CN II-XII grossly intact PSYCHOLOGICAL: Alert and conversant, pleasant LABORATORY DATA: Please see below. MICROBIOLOGY: Please see below. IMAGING: CT chest angiography IMPRESSION: 1. Moderate diffuse bilateral pulmonary emboli with associated right middle lobe and right lower lobe consolidations and trace left basilar atelectasis. 2. Normal thoracic aorta. Cardiomegaly. Bilateral lower extremity duplex ultrasound IMPRESSION: No evidence for deep venous thrombosis. DVT prophylaxis ordered?: Eliquis 10mg twice a day ASSESSMENT AND PLAN: This is a 62-year-old male with pneumonia and bilateral pulmonary emboli. PROBLEMS: 1. Bilateral pulmonary emboli: CT chest angiogram performed as patient continued to admit to pain and shortness of breath. Revealed bilateral pulmonary emboli. Initiated therapeutic Eliquis. No current bleeding identified. Breathing has improved. Duplex ultrasound of bilateral lower extremities was negative. Thrombophilia work-up is pending. 2. Pneumonia: Right lower lobe consolidation. Continued leukocytosis. Continues with IV Ceftriaxone and Azithromycin. Remains on oxygen via NC. Suggested humidified oxygen to relieve blood-tinged nasal secretions. IVF with NS @75mLs/hr. 3. Status-post left knee arthroscopy: Left knee is somewhat edematous without erythema. Could consider obtaining left knee ultrasound. 4. Right sided chest pain: Likely secondary to pulmonary emboli and pneumonia. Will provided heating pad. Percocet as needed. 5. Sickle cell disease: No current findings for acute chest syndrome. Monitor clinically. Remains on IVF with NS @75mLs/hr and oxygen via NC. 6. Tobacco dependence: Nicotine patch provided. DISPOSITION: Admitted to medical-surgical unit. Continue with therapeutic Eliquis and IV Ceftriaxone and Azithromycin. VS, I&O, 24H, Fishbone Vital Signs/I&O Vital Signs Date Time Temp Pulse Resp B/P (MAP) Pulse Ox O2 Delivery O2 Flow Rate FiO2 04/02/17 06:00 99.3 99 17 142/82 (102) 97 Nasal Cannula 2.0 I&O- Last 24 Hours up to 6 AM 04/03/17 06:00 Intake Total 0 ml Output Total 0 ml Balance 0 ml Laboratory Data 24H LABS Laboratory Tests 2 04/01/17 09:13: Total Creatine Kinase 51, Creatine Kinase MB 1.0, Creatine Kinase MB Relative Index 1.96, Troponin I 0.05#, C-Reactive Protein, Quantitative 11.50H 04/01/17 11:58: Lupus Anticoag Normalized Ratio 1.18, Lupus Anticoag DRVVT Screen Ratio 1.3H 04/02/17 05:36: Immature Granulocyte % (Auto) 0.5H, White Blood Count 16.7H, Red Blood Count 4.13L, Hemoglobin 11.0L, Hematocrit 30.2L, Mean Corpuscular Volume 73.1L, Mean Corpuscular Hemoglobin 26.6L, Mean Corpuscular Hemoglobin Concent 36.4, Red Cell Distribution Width 16.5H, Platelet Count 242, Neutrophils (%) (Auto) 76.6H , Lymphocytes (%) (Auto) 9.6L, Monocytes (%) (Auto) 10.7H, Eosinophils (%) (Auto ) 2.4, Basophils (%) (Auto) 0.2, Neutrophils # (Auto) 12.8H, Lymphocytes # (Auto ) 1.6, Monocytes # (Auto) 1.8H, Eosinophils # (Auto) 0.4, Basophils # (Auto) 0.0 , Immature Granulocyte # (Auto) 0.1H, Nucleated Red Blood Cells % (auto) 0.3H, Anion Gap 4L, Glomerular Filtration Rate > 60.0, Blood Urea Nitrogen 10, Creatinine 0.79, Sodium Level 139, Potassium Level 3.7, Chloride Level 107, Carbon Dioxide Level 28, Calcium Level 8.4L CBC/BMP Laboratory Tests 04/02/17 05:36 Red Blood Count 4.13 L, Mean Corpuscular Volume 73.1 L, Mean Corpuscular Hemoglobin 26.6 L, Mean Corpuscular Hemoglobin Concent 36.4, Red Cell Distribution Width 16.5 H, Neutrophils (%) (Auto) 76.6 H, Lymphocytes (%) (Auto ) 9.6 L, Monocytes (%) (Auto) 10.7 H, Eosinophils (%) (Auto) 2.4, Basophils (%) (Auto) 0.2, Neutrophils # (Auto) 12.8 H, Lymphocytes # (Auto) 1.6, Monocytes # ( Auto) 1.8 H, Eosinophils # (Auto) 0.4, Basophils # (Auto) 0.0, Calcium Level 8.4 L Microbiology Microbiology 03/31/17 Blood Culture - Preliminary, Resulted No growth after 24 hours . All specim... 03/31/17 Blood Culture - Preliminary, Resulted No growth after 24 hours . All specim... 04/01/17 Gram Stain - Final, Resulted 04/01/17 Sputum Culture, Resulted Pending LETICIA PENG DO Apr 02, 2017 09:30
[2017-04-02] MEDS: NS 1,000 ML IV SCH ×2 (12:40→15:17)
[2017-04-02 13:05] LABS: RETICULOCYTE % 2.5 % (0.5-1.5)
[2017-04-02 13:08] LABS: REASON FOR REVIEW COMPREHENSIVE REVIEW
[2017-04-02 13:22] LABS: ALBUMIN 2.9 GM/DL (3.2-5.2); ALBUMIN/GLOBULIN RATIO 0.76 (1.00-1.93); BILIRUBIN,DIRECT 0.3 MG/DL (0.0-0.2); BILIRUBIN,TOTAL 0.8 MG/DL (0.2-1.0); TOTAL PROTEIN 6.7 GM/DL (6.4-8.2); URIC ACID 3.1 MG/DL (3.5-7.2)
[2017-04-02 14:00] VITALS: BP 135/79
[2017-04-02] MEDS: AZITHROMYCIN INJ 500 MG, VIAL MATE ADAPTER 1 EACH in D5W 250 ML IV SCH (21:08)
[2017-04-02 22:00] VITALS: BP 130/84
[2017-04-02] MEDS: CEFTRIAXONE SOD 1 GM in APPROPRIATE DILUENT 1 EA IV SCH (23:04)
[2017-04-03] MEDS: PERCOCET 5MG/325MG TAB PO PRN ×2 (05:10→14:50)
[2017-04-03] MEDS: NS 1,000 ML IV SCH (05:13)
[2017-04-03 06:00] VITALS: BP 155/90
[2017-04-03 06:52] LABS: BASO # 0.1 10^3/uL (0.0-0.2); BASO % 0.5 % (0.0-1.0); EOS # 0.4 10^3/uL (0.0-0.50); EOS % 2.9 % (0.0-3.0); IMMATURE GRANULOCYTE % 0.5 % (0-0); LYMPH # 1.8 10^3/uL (1.5-4.5); LYMPH % 14.5 % (24.0-44.0); MEAN CORPUSCULAR HEMOGLOBIN 26.4 pg (27.0-33.0); MEAN CORPUSCULAR HGB CONC 36.4 g/dl (32.0-36.5); MEAN CORPUSCULAR VOLUME 72.6 fl (80.0-96.0); MONO # 1.7 10^3/uL (0.0-0.8); MONO % 13.1 % (0.0-5.0); NEUTROPHILS # 8.7 10^3/uL (1.8-7.7); NEUTROPHILS % 68.5 % (36.0-66.0); PLATELET COUNT, AUTOMATED 237 10^3/uL (150-450); RED CELL DISTRIBUTION WIDTH 16.1 % (11.5-14.5); WHITE BLOOD COUNT 12.7 10^3/uL (4.0-10.0)
[2017-04-03 07:05] LABS: ANION GAP 7 MEQ/L (8-16); BLOOD UREA NITROGEN 7 MG/DL (7-18); CALCIUM LEVEL 8.6 MG/DL (8.8-10.2); CARBON DIOXIDE LEVEL 27 MEQ/L (21-32); CHLORIDE LEVEL 109 MEQ/L (98-107); CREATININE FOR GFR 0.71 MG/DL (0.70-1.30); GLOMERULAR FILTRATION RATE > 60.0 (>49); GLUCOSE, FASTING 106 MG/DL (80-110); POTASSIUM SERUM 3.7 MEQ/L (3.5-5.1); SODIUM LEVEL 143 MEQ/L (136-145)
[2017-04-03] MEDS: APIXABAN 5 MG TAB (ELIQUIS) PO SCH ×2 (08:30→20:21)
[2017-04-03] MEDS: NICOTINE 14 MG/24 HR TRANSDERMAL TD SCH (08:32)
--- NOTE | 2017-04-03 09:37 | IPNPDOC ---
Date Seen The patient was seen on 04/03/17. Progress Note SUBJECTIVE: Patient is a 62-year-old male with pneumonia and found to have bilateral pulmonary emboli. Patient is evaluated at bedside this morning. He states that his breathing has improved and that the humidification on the oxygen has alleviated the blood-tinged nasal secretions. He continues to expectorate brownish colored mucous; results from sputum culture reported yeast. Denies fever, night sweats, chills, pain anywhere else besides his right -sided anterior chest pain that he continues to describe as an ache without radiation. This pain has not changed in character or location since admission. Patient is anticipating potential discharge tomorrow. OBJECTIVE PHYSICAL EXAMINATION: VITAL SIGNS: Please see below. GENERAL: Elderly male, appears stated age, wearing hospital gown, nasal cannula in place, no acute distress HEENT: Atraumatic, normocephalic, PERRL, EOMI, oral mucosa appears pink and moist without visible evidence of white adherent substance on tongue or buccal mucosa, nasal septum with NC in place, nares are patent CARDIOVASCULAR: Regular rate and rhythm, normal S1 and S2, no murmur, rub, click RESPIRATORY: Bilateral crackles appreciated in lower lung lobes, adequate inspiratory and expiratory airway excursion, no wheeze or rhonchi ABDOMINAL: Flat, soft, non-tender, non-distended, right-sided lateral chest pain that is reproducible with palpation EXTREMITIES: Radial and posterior tibial pulses equal and symmetrical, +2, left knee is somewhat edematous without erythema, two small incisions appreciated with tape approximating the edges, no ecchymoses NEUROLOGICAL: CN II-XII grossly intact PSYCHOLOGICAL: Alert and conversant, pleasant LABORATORY DATA: Please see below. MICROBIOLOGY: Please see below. DVT prophylaxis ordered?: Eliquis 10mg twice a day ASSESSMENT AND PLAN: This is a 62-year-old male with pneumonia and bilateral pulmonary emboli. PROBLEMS: 1. Bilateral pulmonary emboli: Continue with therapeutic Eliquis 10mg by mouth twice a day for a total of 7 days, then switch to 5mg by mouth twice daily. No active bleeding identified. Cardiolipin negative. Factor II, protein C/S, antithrombin, Factor V are pending. Lupus anticoagulant screen is only mildly elevated, but ratio is normal. Etiology could be due to patient's underlying sickle cell disease. Percent reticulocyte 2.5, uric acid 3.1, haptoglobin 62, indirect bilirubin 0.5, and peripheral smear indicated anemia of chronic disease with reactive leukocytosis. Less likely to progress to acute chest syndrome. Patient remains on humidified oxygen and NS @75mLs/hr. 2. Pneumonia: Right lower lobe consolidation. Improving leukocytosis. Continues with IV Ceftriaxone and Azithromycin. Remains on oxygen via NC with humidification. IVF with NS @75mLs/hr. 3. Status-post left knee arthroscopy: Left knee is somewhat edematous without erythema. No identified DVT on ultrasound. 4. Right sided chest pain: Likely secondary to pulmonary emboli and pneumonia. Heating pad provided. Percocet as needed. 5. Sickle cell disease: No current findings for acute chest syndrome. Monitor clinically. Remains on IVF with NS @75mLs/hr and oxygen via NC with humidification. 6. Tobacco dependence: Nicotine patch provided. DISPOSITION: Admitted to medical-surgical unit. Continue with therapeutic Eliquis and IV Ceftriaxone and Azithromycin. Potential discharge in the next 24 hours. VS, I&O, 24H, [facility] Vital Signs/I&O Vital Signs Date Time Temp Pulse Resp B/P (MAP) Pulse Ox O2 Delivery O2 Flow Rate FiO2 04/03/17 06:00 98.6 63 19 155/90 (111) 95 Nasal Cannula 2.0 I&O- Last 24 Hours up to 6 AM 04/04/17 06:00 Intake Total 0 ml Output Total 0 ml Balance 0 ml Laboratory Data 24H LABS Laboratory Tests 2 04/02/17 12:43: Reticulocyte # (auto) 110.7H, Differential Slide Review Report, Differential Pathologist's Review COMPREHENSIVE REVIEW, Peripheral Blood Smear Path Consult PERIPHERAL SMEAR, Percent Reticulocyte Count 2.5H, Reticulocyte Hemoglobin Equivalent 28.0, Haptoglobin 62, Uric Acid 3.1L, Aspartate Amino Transf (AST/ SGOT) 18, Alanine Aminotransferase (ALT/SGPT) 13, Lactate Dehydrogenase 371H, Alkaline Phosphatase 66, Total Bilirubin 0.8, Direct Bilirubin 0.3H, Total Protein 6.7, Albumin 2.9L, Albumin/Globulin Ratio 0.76L 04/03/17 06:33: Immature Granulocyte % (Auto) 0.5H, White Blood Count 12.7H, Red Blood Count 3.94L, Hemoglobin 10.4L, Hematocrit 28.6L, Mean Corpuscular Volume 72.6L, Mean Corpuscular Hemoglobin 26.4L, Mean Corpuscular Hemoglobin Concent 36.4, Red Cell Distribution Width 16.1H, Platelet Count 237, Neutrophils (%) (Auto) 68.5H , Lymphocytes (%) (Auto) 14.5L, Monocytes (%) (Auto) 13.1H, Eosinophils (%) ( Auto) 2.9, Basophils (%) (Auto) 0.5, Neutrophils # (Auto) 8.7H, Lymphocytes # ( Auto) 1.8, Monocytes # (Auto) 1.7H, Eosinophils # (Auto) 0.4, Basophils # (Auto ) 0.1, Immature Granulocyte # (Auto) 0.1H, Nucleated Red Blood Cells % (auto) 0.6H, Anion Gap 7L, Glomerular Filtration Rate > 60.0, Blood Urea Nitrogen 7, Creatinine 0.71, Sodium Level 143, Potassium Level 3.7, Chloride Level 109H, Carbon Dioxide Level 27, Calcium Level 8.6L CBC/BMP Laboratory Tests 04/03/17 06:33 Red Blood Count 3.94 L, Mean Corpuscular Volume 72.6 L, Mean Corpuscular Hemoglobin 26.4 L, Mean Corpuscular Hemoglobin Concent 36.4, Red Cell Distribution Width 16.1 H, Neutrophils (%) (Auto) 68.5 H, Lymphocytes (%) (Auto ) 14.5 L, Monocytes (%) (Auto) 13.1 H, Eosinophils (%) (Auto) 2.9, Basophils (% ) (Auto) 0.5, Neutrophils # (Auto) 8.7 H, Lymphocytes # (Auto) 1.8, Monocytes # (Auto) 1.7 H, Eosinophils # (Auto) 0.4, Basophils # (Auto) 0.1, Calcium Level 8.6 L Microbiology Microbiology 03/31/17 Blood Culture - Preliminary, Resulted No Growth after 48 hours. All Specime... 03/31/17 Blood Culture - Preliminary, Resulted No Growth after 48 hours. All Specime... 04/01/17 Gram Stain - Final, Complete 04/01/17 Sputum Culture - Final, Complete Yeast Like Organism GINETTELETICIA Apr 03, 2017 09:37
[2017-04-03 14:00] VITALS: BP 137/79
[2017-04-03 14:10] LABS: PROTEIN C ANTIGEN 78 % (60-150); PROTEIN S ANTIGEN FREE 42 % (57-157); PROTEIN S ANTIGEN TOTAL 81 % (60-150)
[2017-04-03] MEDS ORDERED: FUROSEMIDE 40 MG/4 ML VIAL (J1940) IV ONE (17:00)
--- NOTE | 2017-04-03 17:36 | REP ---
Clinical: Pain and swelling. Technique: AP, lateral, bilateral oblique views of the left knee. Comparison: 05/13/2016. Findings: Moderate tricompartmental degenerative changes are appreciated including subchondral sclerosis, joint space narrowing and marginal spurring/osteophyte formation and cortical irregularities. Chronic bipartite patella again noted. Moderate swelling and effusion appreciated. No acute fracture or dislocation identified. Impression: Swelling and effusion. Moderate tricompartmental arthritic degenerative changes. Signed by Soy Nevarez MD 04/03/2017 05:27 P
[2017-04-03] MEDS: AZITHROMYCIN INJ 500 MG, VIAL MATE ADAPTER 1 EACH in D5W 250 ML IV SCH (20:21)
[2017-04-03 22:00] VITALS: BP_SYST 98
[2017-04-03] MEDS: CEFTRIAXONE SOD 1 GM in APPROPRIATE DILUENT 1 EA IV SCH (22:12)
[2017-04-04] MEDS: PERCOCET 5MG/325MG TAB PO PRN ×4 (01:15→23:47)
[2017-04-04 02:43] VITALS: BP 124/62
[2017-04-04 06:00] VITALS: BP 114/66
[2017-04-04 06:03] LABS: BASO # 0.1 10^3/uL (0.0-0.2); BASO % 0.5 % (0.0-1.0); EOS # 0.3 10^3/uL (0.0-0.50); EOS % 2.6 % (0.0-3.0); IMMATURE GRANULOCYTE % 0.6 % (0-0); LYMPH # 1.7 10^3/uL (1.5-4.5); LYMPH % 15.8 % (24.0-44.0); MEAN CORPUSCULAR HEMOGLOBIN 26.2 pg (27.0-33.0); MEAN CORPUSCULAR HGB CONC 36.1 g/dl (32.0-36.5); MEAN CORPUSCULAR VOLUME 72.5 fl (80.0-96.0); MONO # 1.3 10^3/uL (0.0-0.8); MONO % 12.2 % (0.0-5.0); NEUTROPHILS # 7.2 10^3/uL (1.8-7.7); NEUTROPHILS % 68.3 % (36.0-66.0); PLATELET COUNT, AUTOMATED 264 10^3/uL (150-450); WHITE BLOOD COUNT 10.5 10^3/uL (4.0-10.0)
[2017-04-04 06:22] LABS: ANION GAP 4 MEQ/L (8-16); BLOOD UREA NITROGEN 10 MG/DL (7-18); CALCIUM LEVEL 8.7 MG/DL (8.8-10.2); CARBON DIOXIDE LEVEL 32 MEQ/L (21-32); CHLORIDE LEVEL 104 MEQ/L (98-107); CREATININE FOR GFR 0.76 MG/DL (0.70-1.30); GLOMERULAR FILTRATION RATE > 60.0 (>49); GLUCOSE, FASTING 105 MG/DL (80-110); POTASSIUM SERUM 3.5 MEQ/L (3.5-5.1); SODIUM LEVEL 140 MEQ/L (136-145)
[2017-04-04] MEDS: APIXABAN 5 MG TAB (ELIQUIS) PO SCH ×2 (09:03→21:13)
[2017-04-04] MEDS: NICOTINE 14 MG/24 HR TRANSDERMAL TD SCH (09:04)
[2017-04-04] MEDS ORDERED: FUROSEMIDE 40 MG/4 ML VIAL (J1940) IV ONE (09:45)
--- NOTE | 2017-04-04 10:04 | IPNPDOC ---
Date Seen The patient was seen on 04/04/17. Progress Note UBJECTIVE: Patient is a 62-year-old male with pneumonia and found to have bilateral pulmonary emboli. Patient is evaluated at bedside this morning. He is no longer wearing the nasal cannula during my evaluation. He denies shortness of breath or chest pain. States that overnight he developed a fever fo 102.6. He had soaked through his pajamas. Source is unknown at time. Continues to admit to pain around one of the incision sites on his left knee. Left knee x-ray reveals effusion; however, does not appear much different from a left knee x-ray that was performed on 05/2016. Patient states that he will be getting up at 11AM to ambulate. He still feels quite "groggy" from the medication that he got overnight for his fever. He understands that he will not be discharged today due to his fever overnight. OBJECTIVE PHYSICAL EXAMINATION: VITAL SIGNS: Please see below. GENERAL: Elderly male, appears stated age, wearing hospital gown, no acute distress HEENT: Atraumatic, normocephalic, PERRL, EOMI, oral mucosa appears pink and moist, nasal septum appears midline, nares are patent CARDIOVASCULAR: Regular rate and rhythm, normal S1 and S2, no murmur, rub, click , no pain with palpation of entire anterior upper and lower chest RESPIRATORY: Bilateral crackles appreciated midway up the lung ledezma, adequate inspiratory and expiratory airway excursion, no wheeze or rhonchi ABDOMINAL: Flat, soft, non-tender, non-distended, bowel sounds appreciated, no organomegaly, no rebound, no guarding EXTREMITIES: Radial and posterior tibial pulses equal and symmetrical, +2, left knee is somewhat edematous without erythema, two small incisions appreciated, no pain with palpation around incision sites when patient appears to be distracted, pain elicited around left-sided incision when patient is visualizing palpation, no ecchymoses NEUROLOGICAL: CN II-XII grossly intact PSYCHOLOGICAL: Alert and conversant, pleasant LABORATORY DATA: Please see below. MICROBIOLOGY: Please see below. DVT prophylaxis ordered?: Eliquis 10mg twice a day ASSESSMENT AND PLAN: This is a 62-year-old male with pneumonia and bilateral pulmonary emboli. PROBLEMS: 1. Fever: Unclear etiology at this time. Resolved with Percocet and Tylenol. Will monitor for an additional day with potential for discharge in 24 hours. 2. Bilateral pulmonary emboli: Continue with therapeutic Eliquis 10mg by mouth twice a day for a total of 7 days, then switch to 5mg by mouth twice daily. No active bleeding identified. Cardiolipin negative. Factor II pending. Protein C/S, antithrombin, Factor V are pending are negative. Lupus anticoagulant screen is only mildly elevated, but ratio is normal. Etiology could be due to patient's underlying sickle cell disease. Percent reticulocyte 2.5, uric acid 3.1, haptoglobin 62, indirect bilirubin 0.5, and peripheral smear indicated anemia of chronic disease with reactive leukocytosis. Less likely to progress to acute chest syndrome. IVF resuscitation has been discontinued. Patient has been encouraged to ambulate. Lasix 40mg IV once has been provided as worsening crackles are appreciated midway up the bilateral lung ledezma. No longer on nasal cannula. 3. Pneumonia: Right lower lobe consolidation. Improving leukocytosis. Switching antibiotics to oral Azithromycin and Amoxicilllin. Oxygen and IVF have been discontinued. 4. Status-post left knee arthroscopy: Left knee is somewhat edematous without erythema. No identified DVT on ultrasound. X-ray reveals effusion and osteoarthritis. Patient to follow-up with orthopedics upon discharge. 5. Right sided chest pain: Appears resolved. 6. Sickle cell disease: No current findings for acute chest syndrome. Monitor clinically. Oxygen and IVF have been discontinued. 7. Tobacco dependence: Nicotine patch provided. DISPOSITION: Admitted to medical-surgical unit. Continue with therapeutic Eliquis. Switching to oral antibiotics. Discontinued oxygen and IVF. Potential discharge in the next 24 hours. SUBJECTIVE: Patient is a -year-old [RACE] [GENDER] with OBJECTIVE PHYSICAL EXAMINATION: VITAL SIGNS: Please see below. GENERAL: HEENT: CARDIOVASCULAR: . RESPIRATORY: . ABDOMINAL: EXTREMITIES: NEUROLOGICAL: PSYCHOLOGICAL: LABORATORY DATA: Please see below. MICROBIOLOGY: Please see below. IMAGING: Echocardiogram: . DVT prophylaxis ordered?: ASSESSMENT AND PLAN: This is a -year-old [RACE] [GENDER] with . PROBLEMS: 1. : . 2. : . 3. : . DISPOSITION: . VS, I&O, 24H, Fishbone Vital Signs/I&O Vital Signs Date Time Temp Pulse Resp B/P (MAP) Pulse Ox O2 Delivery O2 Flow Rate FiO2 04/04/17 06:00 98.3 95 20 114/66 (82) 96 Nasal Cannula 2.0 Laboratory Data 24H LABS Laboratory Tests 2 04/04/17 05:29: Immature Granulocyte % (Auto) 0.6H, White Blood Count 10.5H, Red Blood Count 3.97L, Hemoglobin 10.4L, Hematocrit 28.8L, Mean Corpuscular Volume 72.5L, Mean Corpuscular Hemoglobin 26.2L, Mean Corpuscular Hemoglobin Concent 36.1, Red Cell Distribution Width 16.0H, Platelet Count 264, Neutrophils (%) (Auto) 68.3H , Lymphocytes (%) (Auto) 15.8L, Monocytes (%) (Auto) 12.2H, Eosinophils (%) ( Auto) 2.6, Basophils (%) (Auto) 0.5, Neutrophils # (Auto) 7.2, Lymphocytes # ( Auto) 1.7, Monocytes # (Auto) 1.3H, Eosinophils # (Auto) 0.3, Basophils # (Auto ) 0.1, Immature Granulocyte # (Auto) 0.1H, Nucleated Red Blood Cells % (auto) 0.6H, Anion Gap 4L, Glomerular Filtration Rate > 60.0, Blood Urea Nitrogen 10, Creatinine 0.76, Sodium Level 140, Potassium Level 3.5, Chloride Level 104, Carbon Dioxide Level 32, Calcium Level 8.7L CBC/BMP Laboratory Tests 04/04/17 05:29 Red Blood Count 3.97 L, Mean Corpuscular Volume 72.5 L, Mean Corpuscular Hemoglobin 26.2 L, Mean Corpuscular Hemoglobin Concent 36.1, Red Cell Distribution Width 16.0 H, Neutrophils (%) (Auto) 68.3 H, Lymphocytes (%) (Auto ) 15.8 L, Monocytes (%) (Auto) 12.2 H, Eosinophils (%) (Auto) 2.6, Basophils (% ) (Auto) 0.5, Neutrophils # (Auto) 7.2, Lymphocytes # (Auto) 1.7, Monocytes # ( Auto) 1.3 H, Eosinophils # (Auto) 0.3, Basophils # (Auto) 0.1, Calcium Level 8.7 L Microbiology Microbiology 03/31/17 Blood Culture - Preliminary, Resulted No Growth after 72 hours. All specime... 03/31/17 Blood Culture - Preliminary, Resulted No Growth after 72 hours. All specime... 04/01/17 Gram Stain - Final, Complete 04/01/17 Sputum Culture - Final, Complete Yeast Like Organism LETICIA PENG DO Apr 04, 2017 10:04
[2017-04-04] MEDS: AMOXICILLIN 875 MG TAB PO SCH ×2 (11:27→21:13)
[2017-04-04 14:00] VITALS: BP 105/71
[2017-04-04 22:00] VITALS: BP 121/64
[2017-04-05] MEDS: ACETAMINOPHEN TAB 650MG DOSE (2X325MG) PO PRN (03:16)
[2017-04-05 06:00] VITALS: BP 122/67
[2017-04-05 06:29] LABS: BASO % 0.4 % (0.0-1.0); EOS # 0.3 10^3/uL (0.0-0.50); EOS % 2.9 % (0.0-3.0); IMMATURE GRANULOCYTE % 0.5 % (0-0); LYMPH # 1.7 10^3/uL (1.5-4.5); LYMPH % 17.5 % (24.0-44.0); MEAN CORPUSCULAR HEMOGLOBIN 26.7 pg (27.0-33.0); MEAN CORPUSCULAR HGB CONC 36.4 g/dl (32.0-36.5); MEAN CORPUSCULAR VOLUME 73.5 fl (80.0-96.0); MONO # 1.3 10^3/uL (0.0-0.8); MONO % 13.2 % (0.0-5.0); NEUTROPHILS # 6.5 10^3/uL (1.8-7.7); NEUTROPHILS % 65.5 % (36.0-66.0); PLATELET COUNT, AUTOMATED 264 10^3/uL (150-450); RED CELL DISTRIBUTION WIDTH 16.1 % (11.5-14.5); WHITE BLOOD COUNT 9.9 10^3/uL (4.0-10.0)
[2017-04-05 06:40] LABS: ANION GAP 4 MEQ/L (8-16); BLOOD UREA NITROGEN 10 MG/DL (7-18); CALCIUM LEVEL 8.2 MG/DL (8.8-10.2); CARBON DIOXIDE LEVEL 32 MEQ/L (21-32); CHLORIDE LEVEL 103 MEQ/L (98-107); CREATININE FOR GFR 0.72 MG/DL (0.70-1.30); GLOMERULAR FILTRATION RATE > 60.0 (>49); GLUCOSE, FASTING 113 MG/DL (80-110); POTASSIUM SERUM 3.4 MEQ/L (3.5-5.1); SODIUM LEVEL 139 MEQ/L (136-145)
[2017-04-05] MEDS: APIXABAN 5 MG TAB (ELIQUIS) PO SCH (09:11)
[2017-04-05] MEDS: AMOXICILLIN 875 MG TAB PO SCH (09:11)
[2017-04-05] MEDS: NICOTINE 14 MG/24 HR TRANSDERMAL TD SCH (09:12)
[2017-04-05] MEDS ORDERED: AZIT-12 PO (09:23)
[2017-04-05] MEDS ORDERED: AMOX875T PO (09:23)
[2017-04-05] MEDS ORDERED: OXYC1TAB23 PO (10:59)
--- NOTE | 2017-04-05 11:42 | DS.PDOC ---
Discharge Summary General Date of Admission Mar 31, 2017 at 19:05 Date of Discharge 04/05/2017 Primary Care Physician: RACHEAL STEPHENSON MD Attending Physician: JORGE CRESPO MD Discharge Summary PROCEDURES PERFORMED DURING STAY: None. DISCHARGE DIAGNOSES: 1. Bilateral pulmonary emboli. 2. Pleuritic chest pain. 3. Acute respiratory failure with hypoxia resolved. 4. Left knee pain status-post left knee arthroscopy. 5. Community acquired pneumonia. 6. Sickle cell disease. 7. Tobacco dependence. 8. Status-post left knee arthroscopy. 9. Pulmonary nodules followed by PMD 10. Chronic anemia. COMPLICATIONS/CHIEF COMPLAINT: Pneumonia. HISTORY OF PRESENT ILLNESS: Mr. Thomas is a 62-year-old male who presents to [facility] Emergency Department with increasing shortness of breath. Past medical history is significant for: sickle cell disease, history of anemia of chronic disease, tobacco dependence, history of pulmonary nodules and cavitary lesions, osteoarthritis, right knee pain, and insomnia. Patient states that he had a left knee arthroscopy performed two weeks ago on . This is the second arthroscopic attempt on the left knee. He states that on Friday he developed acute shortness of breath with exertion that did not appear to have any inciting event. Something like this has never happened before. He presented to his primary care provider who urged him to present to the Emergency Department. During his evaluation in the ED he was administered IV Moxifloxacin and discharged on oral medication. Patient says it was "an orange pill." His breathing and shortness of breath did not improve. He used a relative's oxygen because he became so short of breath. He does not use oxygen at home. Also developed a right sided anterior chest pain that he can localize with one finger. No radiating pain, diaphoresis, fever, nausea, vomiting, or abdominal pain. Admits to cough productive of white phlegm. Presented to his orthopedist today to have the sutures removed from his left arthroscopy. Due to his shortness of breath his orthopedist performed a left lower extremity ultrasound which the patient said was negative for a clot. Patient was advised to return to the ED for evaluation of his continued and worsening shortness of breath. ED evaluation includes obtaining blood cultures, providing IV antibiotics, administering IV steroids, an obtaining a chest x-ray. Leukocytosis of 16.4 without a lactic acidosis. CRP was not elevated. ABG shows respiratory alkalosis with possible underlying chronic acidosis secondary to O2 retention. Chest x-ray showed "Acute right lower lobe pneumonia increased from prior examination and requires followup to resolution. " Hospitalist service was consulted and patient was admitted for further medical management. HOSPITAL COURSE: Patient was admitted and started on IV Ceftriaxone and Azithromycin. He was placed on oxygen with titration orders to maintain oxygen > 94%. This was adjusted to > 97% as patient has history of sickle cell disease and the concerns for acute chest syndrome was on the differential. Patient continued to admit to right-sided chest pain without trauma so a CT chest angiogram was performed which revealed bilateral pulmonary emboli. He was started on therapeutic Eliquis. Patient was eventually weaned off oxygen and ambulated with oximetry dropping to 90% which does not qualify patient for home oxygen. He was given IVF with NS @75mLs/hr. Blood and sputum cultures were obtained. Sputum culture positive for yeast. Cardiac markers were obtained secondary to right-sided chest pain. They were negative. EKG did not reveal acute ischemia or arrhythmia. Also admitted to left knee pain status- post arthroscopy. Knee x-ray was obtained which revealed an effusion with osteoarthritis. No intervention occurred admission. Patient encourage to follow-up with orthopedics at time of discharge. Initially provided Tylenol for pain, but also provided Percocet which alleviated the pain. Patient was discharged with Percocet. Monitored labs and obtained thrombophilia labs as patient's hemoglobin continued to drop during admission. Thrombophilia labs returned and were essentially negative. Patient was provided a nicotine patch for tobacco dependence. Crackles appreciated in lower lung lobes. IVF was discontinued and patient was given IV Lasix which improved the crackles. Prior to discharge, patient developed a fever. Treated with Tylenol and Percocet. Fever improved and no noted fever over 24 hours. Patient did improve clinically and patient was stable at time of discharge. DISCHARGE MEDICATIONS: Please see below. ALLERGIES: Please see below. PHYSICAL EXAMINATION ON DISCHARGE: VITAL SIGNS: Please see below. GENERAL: Elderly male, appears stated age, wearing hospital gown, no acute distress HEENT: Atraumatic, normocephalic, PERRL, EOMI, oral mucosa appears pink and moist, nasal septum appears midline, nares are patent CARDIOVASCULAR: Regular rate and rhythm, normal S1 and S2, no murmur, rub, click , no pain with palpation of entire anterior upper and lower chest RESPIRATORY: Bilateral crackles appreciated in the lower lung ledezma, adequate inspiratory and expiratory airway excursion, no wheeze or rhonchi ABDOMINAL: Flat, soft, non-tender, non-distended, bowel sounds appreciated, no organomegaly, no rebound, no guarding EXTREMITIES: Radial and posterior tibial pulses equal and symmetrical, +2, left knee is somewhat edematous without erythema, two small incisions appreciated, no pain with palpation around incision sites when patient appears to be distracted, pain elicited around left-sided incision when patient is visualizing palpation, no ecchymoses SKIN: Warm, dry, intact, without noted ecchymoses. NEUROLOGICAL: CN II-XII grossly intact PSYCHOLOGICAL: Alert and conversant, pleasant LABORATORY DATA: Please see below. IMAGING: Chest x-ray, 2 view, PA and lateral IMPRESSION: Acute right lower lobe pneumonia increased from prior examination and requires followup to resolution. CT chest angiography IMPRESSION: 1. Moderate diffuse bilateral pulmonary emboli with associated right middle lobe and right lower lobe consolidations and trace left basilar atelectasis. 2. Normal thoracic aorta. Cardiomegaly. Bilateral lower extremity duplex ultrasound IMPRESSION: No evidence for deep venous thrombosis. Complete left knee x-ray IMPRESSION: Swelling and effusion. Moderate tricompartmental arthritic degenerative changes. PROGNOSIS: Stable ACTIVITY: As tolerated. DIET: As tolerated. DISCHARGE PLAN: Problem: Managing health at home Goal: Improve health & wellness Instructions: Follow DC Instruction DISPOSITION: Home. DISCHARGE INSTRUCTIONS: 1. Continue taking Eliquis 10mg by mouth twice a day for two more days; then take Eliquis 5mg by mouth twice a day for 3-6 months total. 2. Continue taking Amoxicillin 875mg by mouth twice a day for three more days. 3. Continue taking Azithromycin 250mg by mouth daily for three more days. 4. Take Oxycodone/Acetaminophen 5-325mg 1-2 tablets by mouth twice a day, NEEDED. 5. Follow-up with primary care provider, Dr. Stephenson, on 04/07/17 with pre- scheduled appointment. 6. Follow-up with orthopedics, Dr. Richardson, in 7-10 days. ITEMS TO FOLLOWUP ON ON OUTPATIENT: 1. Bilateral pulmonary emboli. 2. Left knee pain status-post left knee arthroscopy. 3. Nicotine dependence. DISCHARGE CONDITION: Stable. TIME SPENT ON DISCHARGE: Greater than 30 minutes. Vital Signs/I&Os Vital Signs Date Time Temp Pulse Resp B/P (MAP) Pulse Ox O2 Delivery O2 Flow Rate FiO2 04/05/17 09:55 102 90 Room Air 04/05/17 06:00 97.2 17 122/67 (85) 1.0 I&O- Last 24 Hours up to 6 AM 04/06/17 06:00 Intake Total 240 ml Output Total 0 ml Balance 240 ml Laboratory Data Labs 24H Laboratory Tests 2 04/05/17 05:50: Immature Granulocyte % (Auto) 0.5H, White Blood Count 9.9, Red Blood Count 3.74L , Hemoglobin 10.0L, Hematocrit 27.5L, Mean Corpuscular Volume 73.5L, Mean Corpuscular Hemoglobin 26.7L, Mean Corpuscular Hemoglobin Concent 36.4, Red Cell Distribution Width 16.1H, Platelet Count 264, Neutrophils (%) (Auto) 65.5, Lymphocytes (%) (Auto) 17.5L, Monocytes (%) (Auto) 13.2H, Eosinophils (%) (Auto ) 2.9, Basophils (%) (Auto) 0.4, Neutrophils # (Auto) 6.5, Lymphocytes # (Auto) 1.7, Monocytes # (Auto) 1.3H, Eosinophils # (Auto) 0.3, Basophils # (Auto) 0.0, Immature Granulocyte # (Auto) 0.1H, Nucleated Red Blood Cells % (auto) 0.5H, Anion Gap 4L, Glomerular Filtration Rate > 60.0, Blood Urea Nitrogen 10, Creatinine 0.72, Sodium Level 139, Potassium Level 3.4L, Chloride Level 103, Carbon Dioxide Level 32, Calcium Level 8.2L CBC/BMP Laboratory Tests 04/05/17 05:50 Red Blood Count 3.74 L, Mean Corpuscular Volume 73.5 L, Mean Corpuscular Hemoglobin 26.7 L, Mean Corpuscular Hemoglobin Concent 36.4, Red Cell Distribution Width 16.1 H, Neutrophils (%) (Auto) 65.5, Lymphocytes (%) (Auto) 17.5 L, Monocytes (%) (Auto) 13.2 H, Eosinophils (%) (Auto) 2.9, Basophils (%) ( Auto) 0.4, Neutrophils # (Auto) 6.5, Lymphocytes # (Auto) 1.7, Monocytes # (Auto ) 1.3 H, Eosinophils # (Auto) 0.3, Basophils # (Auto) 0.0, Calcium Level 8.2 L Microbiology Microbiology 03/31/17 Blood Culture - Preliminary, Resulted No Growth after 72 hours. All specime... 03/31/17 Blood Culture - Preliminary, Resulted No Growth after 72 hours. All specime... 04/01/17 Gram Stain - Final, Complete 04/01/17 Sputum Culture - Final, Complete Yeast Like Organism Discharge Medications Scheduled Amoxicillin (Amoxicillin) 875 Mg Tab, 875 MG PO BID Apixaban Base (Eliquis) 5 Mg Tab, 5 MG PO ASDIRECTED 10 MG (2 TABS) TWICE PER DAY FOR 7 DAYS THEN 5 MG (1 TAB) TWICE PER DAY Azithromycin (Azithromycin) 250 Mg Tab, 250 MG PO QHS Nicotine (Nicotine Transdermal Syst) 14 Mg/24 Hr Dis, 14 MG TD DAILY Scheduled PRN Oxycodone/Acetaminophen (Oxycodone/Acetaminophen 5-325 mg) 1 Tab Tab, 1-2 TAB PO BIDP PRN for PAIN Allergies Coded Allergies: No Known Allergies (Verified , 07/11/16) LETICIA PENG DO Apr 05, 2017 11:42 JORGE CRESPO MD Apr 08, 2017 22:22
[2017-04-05] MEDS ORDERED: NICO14DI24 TD (11:43)
[2017-04-05] MEDS ORDERED: AZITHROMYCIN 250 MG TAB PO SCH (21:00)
== END 2017-04-05 11:48 | disposition home or self-care (01) | DRG 134 ==
LOC: M ED 14:20 → M ED INP 19:05 → M MSPAV 04-01 14:18
PROVIDERS: ADMIT Internal Medicine; ATTEND Internal Medicine Nephrology
DX: I26.99 Other pulmonary embolism without acute cor pulmonale (principal); E87.3 Alkalosis; J18.9 Pneumonia, unspecified organism; D57.1 Sickle-cell disease without crisis; F17.200 Nicotine dependence, unspecified, uncomplicated; M19.90 Unspecified osteoarthritis, unspecified site; G47.00 Insomnia, unspecified; Z79.899 Other long term (current) drug therapy; R91.8 Other nonspecific abnormal finding of lung field

== ENCOUNTER → 2017-04-07 | Outpatient (REF) | payer OTHER ==
[~2017-04-07] MED LIST changes: +AMOX875T PO; +AZIT-12 PO; +ELIQ5TAB PO; +MOXI1TAB PO; +NICO14DI24 TD; +OXYC1TAB23 PO
== END ==
LOC: M SFHCLERA 11:51
PROVIDERS: ATTEND Family Medicine
DX: D57.1 Sickle-cell disease without crisis (principal); E89.0 Postprocedural hypothyroidism

== ENCOUNTER → 2017-04-08 | Outpatient (REF) | payer OTHER ==
[2017-04-08 17:29] LABS: FREE T4 1.02 NG/DL (0.76-1.46)
[2017-04-08 18:52] LABS: BASO # 0.1 10^3/uL (0.0-0.2); BASO % 1.1 % (0.0-1.0); EOS # 0.3 10^3/uL (0.0-0.50); EOS % 3.4 % (0.0-3.0); IMMATURE GRANULOCYTE % 0.3 % (0-0); LYMPH # 2.5 10^3/uL (1.5-4.5); LYMPH % 26.9 % (24.0-44.0); MEAN CORPUSCULAR HEMOGLOBIN 26.1 pg (27.0-33.0); MEAN CORPUSCULAR VOLUME 74.8 fl (80.0-96.0); MONO # 0.8 10^3/uL (0.0-0.8); MONO % 8.6 % (0.0-5.0); NEUTROPHILS # 5.4 10^3/uL (1.8-7.7); NEUTROPHILS % 59.7 % (36.0-66.0); PLATELET COUNT, AUTOMATED 148 10^3/uL (150-450); RED CELL DISTRIBUTION WIDTH 16.4 % (11.5-14.5); WHITE BLOOD COUNT 9.1 10^3/uL (4.0-10.0)
== END ==
LOC: M SFHCLERA 10:35
PROVIDERS: ATTEND Family Medicine
DX: D57.1 Sickle-cell disease without crisis (principal); E89.0 Postprocedural hypothyroidism

== ENCOUNTER → 2017-05-26 | Outpatient (REF) | payer OTHER ==
[2017-05-26 17:03] LABS: FREE T4 0.78 NG/DL (0.76-1.46)
[2017-05-26 18:46] LABS: ERYTHROCYTE SEDIMENTATION RATE 2 mm/hr (0-20)
== END ==
LOC: M SFHCLERA 14:06
DX: R51 Headache (principal); E89.0 Postprocedural hypothyroidism

== ENCOUNTER → 2017-05-30 | Outpatient (CLI) | payer OTHER | LOC: M LRY 13:28 | DX: S42.295A Other nondisplaced fracture of upper end of left humerus, initial encounter for closed fracture (principal); X58.XXXA Exposure to other specified factors, initial encounter | CPT/HCPCS: 73030 ==

== ENCOUNTER → 2017-06-02 | Outpatient (REF) | payer OTHER ==
[2017-06-02 13:48] LABS: CREATININE FOR GFR 0.89 MG/DL (0.70-1.30); GLOMERULAR FILTRATION RATE > 60.0 (>49)
[2017-06-02 13:48] LABS: BLOOD UREA NITROGEN 7 MG/DL (7-18)
== END ==
LOC: M LABDRAW1 10:30
DX: S42.295A Other nondisplaced fracture of upper end of left humerus, initial encounter for closed fracture (principal); Y92.89 Other specified places as the place of occurrence of the external cause; Y93.9 Activity, unspecified
CPT/HCPCS: 36415

== ENCOUNTER → 2017-07-07 | Outpatient (REF) | payer OTHER ==
[2017-07-07 11:45] LABS: CHOLESTEROL LEVEL 215 MG/DL (<200); CHOLESTEROL RISK RATIO 3.771 (<5); HDL CHOLESTEROL 57 MG/DL (>40); LDL CHOLESTEROL 126.4 MG/DL (<100); NON-HDL-C 158 MG/DL; TRIGLYCERIDES LEVEL 158 MG/DL (<150)
== END ==
LOC: M SFHCLERA 08:51
DX: Z13.220 Encounter for screening for lipoid disorders (principal)

== ENCOUNTER → 2017-08-28 | Outpatient (REF) | payer OTHER ==
[2017-08-28 16:46] LABS: BASO # 0.1 10^3/uL (0.0-0.2); BASO % 0.9 % (0.0-1.0); EOS # 0.2 10^3/uL (0.0-0.50); EOS % 2.2 % (0.0-3.0); HEMATOCRIT 39.5 % (42.0-52.0); HEMOGLOBIN 14.2 g/dl (13.5-17.5); IMMATURE GRANULOCYTE % 0.1 % (0-3.0); LYMPH # 2.9 10^3/uL (1.5-4.5); LYMPH % 41.4 % (24.0-44.0); MEAN CORPUSCULAR HEMOGLOBIN 27.3 pg (27.0-33.0); MEAN CORPUSCULAR HGB CONC 35.9 g/dl (32.0-36.5); MONO # 0.6 10^3/uL (0.0-0.8); MONO % 8.8 % (0.0-5.0); NEUTROPHILS # 3.2 10^3/uL (1.8-7.7); NEUTROPHILS % 46.6 % (36.0-66.0); PLATELET COUNT, AUTOMATED 125 10^3/uL (150-450); RED CELL DISTRIBUTION WIDTH 15.6 % (11.5-14.5); WHITE BLOOD COUNT 6.9 10^3/uL (4.0-10.0)
[2017-08-28 16:55] LABS: INR 1.16
[2017-08-28 16:56] LABS: ANION GAP 4 MEQ/L (8-16); BLOOD UREA NITROGEN 9 MG/DL (7-18); CALCIUM LEVEL 8.8 MG/DL (8.8-10.2); CARBON DIOXIDE LEVEL 29 MEQ/L (21-32); CHLORIDE LEVEL 109 MEQ/L (98-107); CREATININE FOR GFR 0.95 MG/DL (0.70-1.30); GLOMERULAR FILTRATION RATE > 60.0 (>49); GLUCOSE, FASTING 95 MG/DL (70-100); POTASSIUM SERUM 4.3 MEQ/L (3.5-5.1); SODIUM LEVEL 142 MEQ/L (136-145)
[2017-08-28 17:11] LABS: POS COUNT POS FLAG
[2017-08-28 17:12] LABS: ADD MORPHOLOGY? YES
[2017-08-28 17:15] LABS: ANISOCYTOSIS 1+; PLATELET ESTIMATE DECREASED (NORMAL)
[2017-08-28 17:16] LABS: TARGET CELLS 1+
[2017-08-28 17:17] LABS: MICROCYTOSIS 1+
== END ==
LOC: M SFHCLERA 12:13
DX: Z01.818 Encounter for other preprocedural examination (principal)

== ENCOUNTER 2017-09-20 19:56 | Emergency (ER) | payer OTHER ==
[2017-09-20] MEDS: MORPHINE 10 MG/ML 1ML VIAL (J2270) IM (21:38)
== END 2017-09-20 23:23 | disposition home or self-care (01) ==
LOC: M ED 19:56
DX: G89.18 Other acute postprocedural pain (principal); J98.9 Respiratory disorder, unspecified; F17.200 Nicotine dependence, unspecified, uncomplicated; Z79.82 Long term (current) use of aspirin; Z79.899 Other long term (current) drug therapy
CPT/HCPCS: J2270

== ENCOUNTER → 2017-11-04 | Outpatient (CLI) | payer OTHER | LOC: M LRY 15:37 | DX: M25.512 Pain in left shoulder (principal); Z96.612 Presence of left artificial shoulder joint | CPT/HCPCS: 73030 ==

== ENCOUNTER → 2017-11-10 | Outpatient (REF) | payer OTHER ==
[2017-11-14 14:19] LABS: PROTEIN S FUNCTIONAL ACTIVITY 47 % (63-140)
== END ==
LOC: M LAB REF 17:28
DX: Z79.01 Long term (current) use of anticoagulants (principal)
CPT/HCPCS: 85305

== ENCOUNTER → 2017-12-15 | Outpatient (CLI) | payer OTHER | LOC: M LRY 11:38 | DX: M25.512 Pain in left shoulder (principal); Z96.612 Presence of left artificial shoulder joint | CPT/HCPCS: 73030 ==

== ENCOUNTER → 2018-01-08 | Outpatient (REF) | payer OTHER ==
[2018-01-08 18:52] LABS: D-DIMER QUANT 2534.5 ng/ml (<500)
[2018-01-11 14:25] LABS: PROTEIN S ANTIGEN FREE 47 % (57-157); PROTEIN S ANTIGEN TOTAL 66 % (60-150)
== END ==
LOC: M LAB REF 17:25
DX: D57.20 Sickle-cell/Hb-C disease without crisis (principal); Z86.711 Personal history of pulmonary embolism
CPT/HCPCS: 85306

== ENCOUNTER → 2018-01-15 | Outpatient (REF) | payer OTHER ==
[2018-01-15 21:14] LABS: BASO # 0.1 10^3/uL (0.0-0.2); BASO % 0.8 % (0.0-1.0); EOS # 0.2 10^3/uL (0.0-0.50); EOS % 2.7 % (0.0-3.0); HEMATOCRIT 37.6 % (42.0-52.0); HEMOGLOBIN 13.2 g/dl (13.5-17.5); IMMATURE GRANULOCYTE % 0.2 % (0-3.0); LYMPH # 2.4 10^3/uL (1.5-4.5); LYMPH % 37.9 % (24.0-44.0); MEAN CORPUSCULAR HEMOGLOBIN 27.2 pg (27.0-33.0); MEAN CORPUSCULAR HGB CONC 35.1 g/dl (32.0-36.5); MEAN CORPUSCULAR VOLUME 77.4 fl (80.0-96.0); MONO # 0.5 10^3/uL (0.0-0.8); NEUTROPHILS # 3.2 10^3/uL (1.8-7.7); NEUTROPHILS % 50.4 % (36.0-66.0); PLATELET COUNT, AUTOMATED 121 10^3/uL (150-450); RED BLOOD COUNT 4.86 10^6/uL (4.30-6.10); RED CELL DISTRIBUTION WIDTH 14.7 % (11.5-14.5); WHITE BLOOD COUNT 6.3 10^3/uL (4.0-10.0)
== END ==
LOC: M SFHCLERA 11:20
DX: D57.1 Sickle-cell disease without crisis (principal)

== ENCOUNTER → 2018-01-15 | Outpatient (CLI) | payer OTHER | LOC: M LRY 11:41 | DX: M25.512 Pain in left shoulder (principal); D57.1 Sickle-cell disease without crisis; Z96.612 Presence of left artificial shoulder joint | CPT/HCPCS: 73030 ==

== ENCOUNTER 2018-03-23 14:51 | Emergency (ER) | payer OTHER ==
[2018-03-23] MEDS: KETOROLAC TROMETHAMINE 10 MG TAB PO (15:38)
[2018-03-23 16:00] LABS: BASO # 0.1 10^3/uL (0.0-0.2); BASO % 1.1 % (0.0-1.0); EOS # 0.2 10^3/uL (0.0-0.50); EOS % 3.4 % (0.0-3.0); HEMATOCRIT 38.4 % (42.0-52.0); HEMOGLOBIN 13.6 g/dl (13.5-17.5); IMMATURE GRANULOCYTE % 0.3 % (0-3.0); LYMPH # 2.5 10^3/uL (1.5-4.5); LYMPH % 35.2 % (24.0-44.0); MEAN CORPUSCULAR HEMOGLOBIN 27.3 pg (27.0-33.0); MEAN CORPUSCULAR HGB CONC 35.4 g/dl (32.0-36.5); MEAN CORPUSCULAR VOLUME 77.1 fl (80.0-96.0); MONO # 0.6 10^3/uL (0.0-0.8); MONO % 8.2 % (0.0-5.0); NEUTROPHILS # 3.7 10^3/uL (1.8-7.7); NEUTROPHILS % 51.8 % (36.0-66.0); PLATELET COUNT, AUTOMATED 120 10^3/uL (150-450); RED BLOOD COUNT 4.98 10^6/uL (4.30-6.10); RED CELL DISTRIBUTION WIDTH 14.5 % (11.5-14.5); WHITE BLOOD COUNT 7.1 10^3/uL (4.0-10.0)
[2018-03-23 16:12] LABS: POS COUNT POS FLAG
[2018-03-23 16:25] LABS: ALBUMIN 4.1 GM/DL (3.2-5.2); ALBUMIN/GLOBULIN RATIO 1.14 (1.00-1.93); ALKALINE PHOSPHATASE 75 U/L (45-117); ALT/SGPT 17 U/L (12-78); ANION GAP 4 MEQ/L (8-16); AST/SGOT 22 U/L (7-37); BILIRUBIN,DIRECT 0.2 MG/DL (0.0-0.2); BILIRUBIN,TOTAL 0.8 MG/DL (0.2-1.0); BLOOD UREA NITROGEN 10 MG/DL (7-18); C REACTIVE PROTEIN QUANTITATIV 0.62 MG/DL (0.00-0.30); CALCIUM LEVEL 8.8 MG/DL (8.8-10.2); CARBON DIOXIDE LEVEL 30 MEQ/L (21-32); CHLORIDE LEVEL 106 MEQ/L (98-107); CREATININE FOR GFR 0.94 MG/DL (0.70-1.30); GLOMERULAR FILTRATION RATE > 60.0 (>49); GLUCOSE, FASTING 107 MG/DL (70-100); POTASSIUM SERUM 3.8 MEQ/L (3.5-5.1); SODIUM LEVEL 140 MEQ/L (136-145); TOTAL PROTEIN 7.7 GM/DL (6.4-8.2)
[2018-03-23] MEDS ORDERED: ISOVUE-370 76% 100ML VIAL (Q9967) As Ordered (16:59)
[2018-03-23 18:13] LABS: ERYTHROCYTE SEDIMENTATION RATE 3 mm/hr (0-20)
== END 2018-03-23 18:57 | disposition home or self-care (01) ==
LOC: M ED 14:51
DX: I82.612 Acute embolism and thrombosis of superficial veins of left upper extremity (principal); T81.9XXA Unspecified complication of procedure, initial encounter; R20.2 Paresthesia of skin; R91.8 Other nonspecific abnormal finding of lung field; D57.1 Sickle-cell disease without crisis; Z72.0 Tobacco use; Z79.82 Long term (current) use of aspirin; Z79.899 Other long term (current) drug therapy
CPT/HCPCS: Q9967

== ENCOUNTER → 2018-05-04 | Outpatient (REF) | payer OTHER ==
[~2018-05-04] MED LIST changes: +NAPR-50 PO; +NORCOTAB PO; +SM A1TAB; +STIO1AER IN; +VENTAER; +VICO5TAB16 PO
[2018-05-04 13:01] LABS: BASO # 0.1 10^3/uL (0.0-0.2); BASO % 1.4 % (0.0-1.0); EOS # 0.3 10^3/uL (0.0-0.50); EOS % 4.7 % (0.0-3.0); HEMATOCRIT 37.9 % (42.0-52.0); HEMOGLOBIN 13.9 g/dl (13.5-17.5); LYMPH # 2.8 10^3/uL (1.5-4.5); MEAN CORPUSCULAR HEMOGLOBIN 27.6 pg (27.0-33.0); MEAN CORPUSCULAR HGB CONC 36.7 g/dl (32.0-36.5); MEAN CORPUSCULAR VOLUME 75.2 fl (80.0-96.0); MONO # 0.6 10^3/uL (0.0-0.8); MONO % 7.9 % (0.0-5.0); NEUTROPHILS # 3.3 10^3/uL (1.8-7.7); NEUTROPHILS % 46.7 % (36.0-66.0); PLATELET COUNT, AUTOMATED 113 10^3/uL (150-450); RED BLOOD COUNT 5.04 10^6/uL (4.30-6.10); WHITE BLOOD COUNT 7.1 10^3/uL (4.0-10.0)
[2018-05-04 13:52] LABS: ANISOCYTOSIS 2+; POIKILOCYTOSIS 1+
[2018-05-04 13:54] LABS: GIANT PLATELETS 1+; PLATELET ESTIMATE DECREASED (NORMAL)
[2018-05-04 13:57] LABS: TARGET CELLS 1+
== END ==
LOC: M SFHCLERA 09:55
PROVIDERS: ATTEND Family Medicine
DX: M25.561 Pain in right knee (principal)

== ENCOUNTER → 2018-05-26 | Outpatient (CLI) | payer OTHER ==
--- NOTE | 2018-05-27 02:34 | REP ---
Clinical: Acute right knee pain. Technique: AP, lateral, bilateral oblique and sunrise views of the right knee. Findings: Degenerative changes include sclerosis to the tibial plateau with marginal spurring and tibiofemoral joint space narrowing as well as sclerosis along the posterior patellar margin with a very subtle spurring along the superior and medial contours of the patella. Lateral view best demonstrates a suprapatellar effusion while AP and sunrise views demonstrate moderate swelling. No acute fracture or dislocation. Impression: Mild degenerative changes along with soft tissue swelling and suprapatellar effusion. Electronically Signed by Soy Nevarez MD 05/27/2018 02:25 A
== END ==
LOC: M LRY 12:32
PROVIDERS: ATTEND Family Medicine
DX: M25.561 Pain in right knee (principal); M17.11 Unilateral primary osteoarthritis, right knee; M25.461 Effusion, right knee

== ENCOUNTER → 2018-06-16 | Outpatient (CLI) | payer OTHER ==
[~2018-06-16] MED LIST changes: +NEUR300C PO; +OXYC-517 PO
--- NOTE | 2018-06-16 14:25 | REP ---
RIGHT LOWER EXTREMITY DUPLEX VEINS: HISTORY: Swelling. There are no filling defects in the deep venous system. The deep venous system is patent. IMPRESSION: There is no deep venous thrombosis. Electronically Signed by Bart Ge MD 06/16/2018 02:40 P
== END ==
LOC: M RAD 13:07
PROVIDERS: ATTEND Family Medicine
DX: R60.0 Localized edema (principal)

== ENCOUNTER → 2018-06-19 | Outpatient (CLI) | payer OTHER ==
--- NOTE | 2018-06-27 23:59 | ECWPNPC ---
PATIENT NAME: BRAD LANDIS : 1955 GENDER: MALE VISIT DATE: 06/19/2018 DISCHARGE DATE: 06/19/18 1335 VISIT LOCKED DATE TIME: PHYSICIAN: MICHEAL UREÑA MD RESOURCE: MICHEAL UREÑA MD REASON FOR APPOINTMENT 1. (L) ARM/SHOULDER PAIN HISTORY OF PRESENT ILLNESS FALL RISK SCREENING: SCREENING :NO FALLS IN THE PAST YEAR PAIN SCREENING: PATIENT HAS A COMPLAINT OF ACUTE OR CHRONIC PAIN :YES 63 YEAR OLD MALE PATIENT WITH A HISTORY OF CHRONIC LEFT SHOULDER PAIN. THE PATIENT DESCRIBES THE PAIN ACHING, SORE, AND CONTINUOUS WITH A PAIN SCORE OF 8-10/10 DEPENDING ON PHYSICAL ACTIVITY. THE PATIENT SAYS HIS PAIN STARTED IN SEPTEMBER 2017 WHEN HE FELL AND INJURED HIS SHOULDER. THE PATIENT HAD SURGERY ON HIS SHOULDER, BUT SAYS THAT HIS PAIN PERSISTED. THE PATIENT SAYS THAT HE HAS DIFFICULTY MOVING HIS SHOULDER AND IS UNABLE TO USE HIS ARM. THE PATIENT IS CURRENTLY USING OXYCODONE TO AID IN PAIN RELIEF. PATIENT DENIES UNEXPLAINABLE WEIGHT LOSS, FEVER, CHILLS, NEW CHANGES ON HIS URINARY OR BOWEL CONTROL. CURRENT MEDICATIONS TAKING STIOLTO RESPIMAT 2.5-2.5 MCG/ACT AEROSOL SOLUTION 2 PUFFS INHALATION ONCE A DAY TAKING VOLTAREN 1 % GEL 4 GMS TRANSDERMAL QID TAKING VENTOLIN HFA 108 (90 BASE) MCG/ACT AEROSOL SOLUTION 2 PUFFS NEEDED INHALATION EVERY 4 HRS TAKING GABAPENTIN 300 MG CAPSULE 1 CAPSULE ORALLY TID TAKING BABY ASPIRIN 1 TAB ORALLY DAILY TAKING OXYCODONE HCL 5 MG TABLET 2 TABLET NEEDED ORALLY EVERY 6 HRS MEDICATION LIST REVIEWED AND RECONCILED WITH THE PATIENT PAST MEDICAL HISTORY TOBACCO DEPENDENCE PUMONARY NODULES AND CAVITARY LESION PPD NEGATIVE, February, SICKLE CELL DISEASE (SC) INSOMNIA POSTSURGICAL HYPOTHYROIDISM PULMONARY EMBOLISM 2017 COPD OSTEOARTHRITIS 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 SOCIAL HISTORY GENERAL: TOBACCO USE ARE YOU A:FORMER SMOKER 9 DAYS HOW LONG HAS IT BEEN SINCE YOU LAST SMOKED?< 1 MONTH LUNG CANCER SCREENING SMOKING STATUS:CURRENT SMOKER BMI CARE GOAL FOLLOW-UP ABOVE NORMAL BMI FOLLOW-UPDIETARY MANAGEMENT EDUCATION, GUIDANCE, AND COUNSELING ALCOHOL SCREENING DID YOU HAVE A DRINK CONTAINING ALCOHOL IN THE PAST YEAR?NO POINTS0 INTERPRETATIONNEGATIVE RECREATIONAL DRUG USE DENIES. CAFFEINE CAFFEINE USE?YES HOW OFTEN AND HOW MUCH? 2 POTS OF COFFEE PER DAY SEXUAL HX HAD SEX IN THE LAST 12 MONTHS (VAGINAL, ORAL, OR ANAL)?NO HIV / HEP-C SCREENING HIV TEST OFFERED TO PATIENT:YES DATE OFFERED:05/26/2018 TEST ACCEPTED:YES HEP-C TEST OFFERED TO PATIENT:YES DATE OFFERED:05/26/2018 TEST ACCEPTED:NO REASON:PATIENT DECLINED BROCHURE PROVIDED TO PATIENTNO MANDAEN NO CONFUCIANIST BELIEFS THAT WOULD IMPACT HEALTH CARE. LANGUAGE PASHTO. EDUCATION 8TH GRADE. 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 DIET: REGULAR. EXERCISE: CHOPPING WOOD, STACKING WOOD, MARIA TERESA.. MARITAL STATUS: ENGAGED TO BE . OTHERS AT HOME: GIRLFRIEND. PAIN CLINIC PFS, CLERGY, PUBLIC HEALTH REFERRALS HAS THE PATIENT BEEN EDUCATED REGARDING HIS/HER PLAN OF CARE?YES HAS THE PATIENT BEEN EDUCATED REGARDING PAIN, THE RISK FOR PAIN, THE IMPORTANCE OF EFFECTIVE PAIN MANAGEMENT, AND THE PAIN ASSESSMENT PROCESS?YES HOUSING: RENTS HOUSE. ADVANCE DIRECTIVE ADVANCE DIRECTIVE DISCUSSED WITH PATIENT:YES PT HAS NO ADVANCED DIRECTIVES, GIVEN INFORMATION AND INSTRUCTIONS REVIEWED WITH PT 06/19/18 1100 LAS. HOSPITALIZATION/MAJOR DIAGNOSTIC PROCEDURE CHOLECYSTECTOMY 1999 TWICE FOR PNEUMONIA AND BROKEN RIB 03/2017 REVIEW OF SYSTEMS REVIEWED BY: PROVIDER: MICHEAL UREÑA MD . CONSTITUTIONAL: ANY CHANGE IN YOUR MEDICAL CONDITION? NO . CHILLS NO . FEVER NO . INFECTION: DO YOU HAVE NEW INFECTIONS? NO . DO YOU HAVE HISTORY OF MRSA? NO . MUSCULOSKELETAL: ANY NEW PATTERNS OF PAIN OR NUMBNESS? NO . SYTEMIC LUPUS NO . GASTROENTEROLOGY: ANY NEW CHANGE IN BOWEL CONTROL? NO . BARRETTS ESOPHAGUS NO . CIRRHOSIS NO . HEPATITIS NO . LIVER FAILURE NO . ACID REFLUX NO . UNEXPLAINED WEIGHT LOSS NO . GENITOURINARY: ANY NEW CHANGE IN BLADDER CONTROL? NO PT REPORTS HE HAS ONLY ONE KIDNEY, ONE REMOVED 2013, PT UNSURE WHY . IS THERE A CHANCE YOU COULD BE ? NO . HEMATOLOGY/LYMPH: DO YOU TAKE ANY BLOOD THINNERS? (FOR EXAMPLE- COUMADIN, PLAVIX, AGGRENOX, PLATEL, PRADAXA, OR XARELTO) NO . WHEN WAS YOUR LAST DOSE? DATE: TIME: . LOW PLATELET COUNT NO . SICKLE CELL DISEASE YES PT POSITIVE FOR TRAIT, NOT FOR DISEASE PER PT. . VON WILLIEBRANDS NO . FACTOR V LEIDEN NO . THALLASEMIA NO . ANEMIA NO . EASY BRUISING NO . NEUROLOGY: HAVE YOU FALLEN IN THE PAST 12 MONTHS? YES PT REPORTS HE HAS "FLUID ON HIS RIGHT KNEE" WHICH MAKES IT WEAK AND GIVE OUT SOMETIMES. PT DENIES INJURY FROM FALL, NO ED OR MD VISIT. . ANY NEW EXTREMITY NUMBNESS OR WEAKNESS? NO . HEAD INJURY NO . DEMENTIA NO . CEREBRAL PALSY NO . MULTIPLE SCLEROSIS NO . DIZZINESS NO . HEADACHE NO . STROKES NO . VERTIGO NO . CARDIOLOGY: DO YOU HAVE A PACEMAKER OR DEFIBRILLATOR? NO . ANGINA NO . HEART ATTACK NO . HEART SURGERY NO . CONGESTIVE HEART FAILURE/FLUID OVERLOAD NO . CHEST PAIN NO . HIGH BLOOD PRESSURE NO . IRREGULAR HEART BEAT NO . RESPIRATORY: HAVE YOU BEEN SICK IN THE PAST WEEK? NO . FEVER NO . FLU LIKE SYMPTOMS? NO . CPAP NO . BYPAP NO . ASTHMA NO . EMPHYSEMA NO . CHRONIC LUNG DISEASES YES PT HAS HX COPD, USES O2 PRN . SHORTNESS OF BREATH ON EXERTION YES . COUGH NO . SNORING NO . INTEGUMENTARY: DO YOU HAVE ANY RASHES OR OPEN SORES? NO . ALLERGIC/IMMUNO: ARE YOU ALLERGIC TO IV DYE? NO . ANY NEW ALLERGIES? NO . PSYCHIATRIC: DO YOU HAVE THOUGHTS OF HURTING YOURSELF OR SOMEONE ELSE? NO . ARE YOU ABUSED, NEGLECTED, OR IN AN UNSAFE ENVIRONMENT? NO . ENDOCRINOLOGY: ARE YOU DIABETIC? NO . THYROID DISORDER NO . OTHER: DO YOU NEED ANY PRESCRIPTIONS? NO . IF YES, PLEASE LIST: ____ . ANY NEW PROBLEMS WITH YOUR MEDICATIONS? NO . WHEN DID YOU LAST EAT? ____ . WHEN DID YOU LAST DRINK? ____ . WHAT DID YOU LAST DRINK? ____ . NAME OF PERSON DRIVING YOU HOME? ____ . DO YOU HAVE ANY OTHER QUESTIONS OR CONCERNS NO . VITAL SIGNS WT 182.4 LBS, HT 78 IN, BMI 21.08 INDEX, BP 137/79 MM HG, HR 81 /MIN, RR 18 /MIN, TEMP 97.6 F, OXYGEN SAT % 98%, SAFE IN ENV? (Y/N) YES, NA INITIALS ID [id number], REVIEWED BY: BETTY. EXAMINATION GENERAL EXAMINATION: PATIENT IS ALERT O X 3 AND COOPERATIVE. LUNGS CLEAR, TO AUSCULTATION. HEART: NO MURMURS OR GALLOPS; FACIAL CRANIAL NERVES ARE GROSSLY NORMAL. GOOD SYMMETRY OF FACIAL MUSCLE MOVEMENT. NORMAL VISUAL PEREIRA. PATIENT CAN ABDUCT THE RIGHT ARM WITHOUT DIFFICULTY AND IS UNABLE TO ABDUCT THE LEFT ARM. LEFT ARM IS WEAKER AT EXTENSION AND FLEXION. HAND STORE RECEIVER IS REDUCED OVER THE LEFT SIDE. THERE IS A SCAR MEASURING 6CM OVER THE LATERAL ASPECT OF THE LEFT SHOULDER. THERE IS HYPERPATHIA OVER THE LEFT SHOULDER. MASS EFFECT OVER THE PROXIMAL ASPECT OF THE SHOULDER. ASSESSMENTS PAIN IN LEFT SHOULDER - M25.512 (PRIMARY) OTHER CHRONIC PAIN - G89.29 STATUS POST SHOULDER SURGERY - Z98.890 MASS EFFECT OVER LEFT SHOULDER. TREATMENT PAIN IN LEFT SHOULDER CLINICAL NOTES: WE DISCUSSED SEVERAL ISSUES WITH MR. LANDIS'S PAIN MANAGEMENT CASE. THE PATIENT WAS ADVISED TO GO TO THE EMERGENCY ROOM OR URGENT CARE IF THE MASS EFFECT GETS WORSE OR RED. THE PATIENT IS UNABLE TO USE IBUPROFEN DUE TO A REACTION OF HIVES, SO I WOULD LIKE THE PATIENT TO START USING DICLOFENAC. THE PATIENT WILL CONSIDER TOPICAL PRODUCTS IN THE FUTURE. WE NEED TO REACH AGREEMENT WITH PRIMARY CARE ON REGARDS OF HIS MEDICATIONS. CASE WILL BE DISCUSS WITH THE PATIENTS PRIMARY CARE PROVIDER.THE PATIENT WILL FOLLOW UP IN A FEW WEEKS. INSTRUCTIONS WERE GIVEN, QUESTIONS WERE ANSWERED, PATIENT REPORTS UNDERSTANDING AND AGREES WITH THE PLAN. I, GEOVANNI LOWE, DOCUMENTED THE ABOVE INFORMATION ACTING A SCRIBE FOR DR. UREÑA. I HAVE REVIEWED THE ABOVE DOCUMENT, WRITTEN BY GEOVANNI BATRES AND I VERIFY THAT IT IS ACCURATE. DEAR DR. STEPHENSON:THANK YOU FOR YOUR KIND REFERRAL OF MR. LANDIS. IF YOU WANT TO DISCUSS HIS CASE WITH ME PLEASE CALL ME AT THE PAIN CENTER AT [phone]. SINCERELY,MICHEAL UREÑA, [facility]. OTHERS START DICLOFENAC CAPSULE, 35 MG, 1 CAPSULE WITH FOOD OR MILK NEEDED, ORALLY FOR PAIN, EVERY 6 HOURS NEEDED MDD3, 30 DAY(S), 60, REFILLS 1 START DICLOFENAC SODIUM TABLET DELAYED RELEASE, 75 MG, 1 TABLET WITH FOOD OR MILK, ORALLY FOR PAIN, EVERY 8 HOURS NEEDED MDD2, 30 DAY(S), 60, REFILLS 1 PREVENTIVE MEDICINE HTN WRITTEN CARE PLAN: PRINTED MATERIAL WAS A PRINTOUT PROVIDED TO THE PATIENT?YES DICLOFENAC PROCEDURE CODES FA211 ESTABILISHED PATIENT [facility] FACILITY CHARGE G8427 CURRENT MEDS W/DOSAGES DOCUMENTED G8730 PAIN ASSESS POS TOOL F/U PLAN DOC DISPOSITION & COMMUNICATION FOLLOW UP 3 WEEKS (REASON: LEFT SHOULDER) ELECTRONICALLY SIGNED BY MICHEAL UREÑA MD, MD ON 06/27/2018 AT 07:45 PM EST DISCLAIMER : THIS IS A VISIT SUMMARY EXTRACTED FROM THE [email or web address] CHART. IT IS NOT A COPY OF THE [employer] PROGRESS NOTE. SEAN
== END ==
LOC: M PAIN 10:00
PROVIDERS: ATTEND Anesthesiology
DX: M25.512 Pain in left shoulder (principal); G89.29 Other chronic pain; Z98.890 Other specified postprocedural states; F17.210 Nicotine dependence, cigarettes, uncomplicated; D57.1 Sickle-cell disease without crisis; G47.00 Insomnia, unspecified; E89.0 Postprocedural hypothyroidism; J44.9 Chronic obstructive pulmonary disease, unspecified; M19.90 Unspecified osteoarthritis, unspecified site; Z88.5 Allergy status to narcotic agent; Z79.82 Long term (current) use of aspirin; Z79.899 Other long term (current) drug therapy

== ENCOUNTER → 2018-06-23 | Outpatient (REF) | payer OTHER ==
[2018-06-23 11:44] LABS: BASO # 0.1 10^3/uL (0.0-0.2); BASO % 1.2 % (0.0-1.0); EOS # 0.5 10^3/uL (0.0-0.50); EOS % 5.8 % (0.0-3.0); HEMATOCRIT 36.6 % (42.0-52.0); LYMPH # 3.3 10^3/uL (1.5-4.5); MEAN CORPUSCULAR HEMOGLOBIN 27.9 pg (27.0-33.0); MEAN CORPUSCULAR HGB CONC 35.5 g/dl (32.0-36.5); MEAN CORPUSCULAR VOLUME 78.5 fl (80.0-96.0); MONO # 0.7 10^3/uL (0.0-0.8); MONO % 7.6 % (0.0-5.0); NEUTROPHILS # 3.9 10^3/uL (1.8-7.7); PLATELET COUNT, AUTOMATED 117 10^3/uL (150-450); RED BLOOD COUNT 4.66 10^6/uL (4.30-6.10); WHITE BLOOD COUNT 8.5 10^3/uL (4.0-10.0)
[2018-06-23 11:57] LABS: BLOOD UREA NITROGEN 8 MG/DL (7-18); CALCIUM LEVEL 8.6 MG/DL (8.8-10.2); CARBON DIOXIDE LEVEL 29 MEQ/L (21-32); CHLORIDE LEVEL 106 MEQ/L (98-107); CREATININE FOR GFR 0.97 MG/DL (0.70-1.30); GLOMERULAR FILTRATION RATE > 60.0 (>49); GLUCOSE, FASTING 92 MG/DL (70-100); SODIUM LEVEL 140 MEQ/L (136-145)
== END ==
LOC: M SFHCLERA 09:34
PROVIDERS: ATTEND Family Medicine
DX: Z01.818 Encounter for other preprocedural examination (principal)

== ENCOUNTER → 2018-07-13 | Outpatient (CLI) | payer OTHER ==
--- NOTE | 2018-07-26 00:46 | ECWPNPC ---
PATIENT NAME: BRAD LANDIS : 1955 GENDER: MALE VISIT DATE: 07/13/2018 DISCHARGE DATE: 07/13/18 1009 VISIT LOCKED DATE TIME: PHYSICIAN: MICHEAL UREÑA MD RESOURCE: MICHEAL UREÑA MD REASON FOR APPOINTMENT 1. LEFT SHOULDER HISTORY OF PRESENT ILLNESS HISTORY OF PRESENT ILLNESS: PAIN THE PATIENT DESCRIBES THE PAIN... 63 YEAR OLD MALE PATIENT WITH A HISTORY OF CHRONIC LEFT SHOULDER PAIN. THE PATIENT DESCRIBES THE PAIN STABBING AND CONTINUOUS WITH A PAIN SCORE OF 8-10/10 DEPENDING ON PHYSICAL ACTIVITY. THE PATIENT SAYS THAT HE IS UNABLE TO MOVE HIS LEFT ARM DUE TO THIS PAIN. THE PATIENT WAS USING DICLOFENAC TO AID IN PAIN RELIEF, BUT SAYS THAT IT DID NOT HELP. THE PATIENT STATES THAT HE IS HAVING SURGERY ON HIS LEFT SHOULDER TOMORROW. PATIENT DENIES UNEXPLAINABLE WEIGHT LOSS, FEVER, CHILLS, NEW CHANGES ON HIS URINARY OR BOWEL CONTROL. FALL RISK SCREENING: SCREENING : NO FALLS IN THE PAST YEAR. CURRENT MEDICATIONS TAKING STIOLTO RESPIMAT 2.5-2.5 MCG/ACT AEROSOL SOLUTION 2 PUFFS INHALATION ONCE A DAY TAKING VOLTAREN 1 % GEL 4 GMS TRANSDERMAL QID TAKING GABAPENTIN 300 MG CAPSULE 1 CAPSULE ORALLY TID TAKING OXYCODONE HCL 5 MG TABLET 2 TABLET NEEDED ORALLY EVERY 6 HRS TAKING TESSALON PERLES 100 MG CAPSULE 1 CAPSULE NEEDED ORALLY THREE TIMES A DAY TAKING VENTOLIN HFA 108 (90 BASE) MCG/ACT AEROSOL SOLUTION 2 PUFFS NEEDED INHALATION EVERY 4 HRS NOT-TAKING DICLOFENAC 35 MG CAPSULE 1 CAPSULE WITH FOOD OR MILK NEEDED ORALLY FOR PAIN EVERY 6 HOURS NEEDED MDD3 NOT-TAKING DICLOFENAC SODIUM 75 MG TABLET DELAYED RELEASE 1 TABLET WITH FOOD OR MILK ORALLY FOR PAIN EVERY 8 HOURS NEEDED MDD2 MEDICATION LIST REVIEWED AND RECONCILED WITH THE PATIENT PAST MEDICAL HISTORY TOBACCO DEPENDENCE PUMONARY NODULES AND CAVITARY LESION PPD NEGATIVE, February, SICKLE CELL DISEASE (SC) INSOMNIA POSTSURGICAL HYPOTHYROIDISM PULMONARY EMBOLISM 2017 COPD OSTEOARTHRITIS 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 SOCIAL HISTORY GENERAL: TOBACCO USE ARE YOU A:FORMER SMOKER 9 DAYS HOW LONG HAS IT BEEN SINCE YOU LAST SMOKED?3-6 MONTHS LUNG CANCER SCREENING SMOKING STATUS:CURRENT SMOKER BMI CARE GOAL FOLLOW-UP ABOVE NORMAL BMI FOLLOW-UPDIETARY MANAGEMENT EDUCATION, GUIDANCE, AND COUNSELING ALCOHOL SCREENING DID YOU HAVE A DRINK CONTAINING ALCOHOL IN THE PAST YEAR?NO POINTS0 INTERPRETATIONNEGATIVE RECREATIONAL DRUG USE DENIES. CAFFEINE CAFFEINE USE?YES HOW OFTEN AND HOW MUCH? 2 POTS OF COFFEE PER DAY SEXUAL HX HAD SEX IN THE LAST 12 MONTHS (VAGINAL, ORAL, OR ANAL)?NO HIV / HEP-C SCREENING HIV TEST OFFERED TO PATIENT:YES DATE OFFERED:05/26/2018 TEST ACCEPTED:YES HEP-C TEST OFFERED TO PATIENT:YES DATE OFFERED:05/26/2018 TEST ACCEPTED:NO REASON:PATIENT DECLINED BROCHURE PROVIDED TO PATIENTNO HOAHAOISM NO BAPTISM BELIEFS THAT WOULD IMPACT HEALTH CARE. LANGUAGE KINYARWANDA. EDUCATION 8TH GRADE. 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 EXERCISE: CHOPPING WOOD, STACKING WOOD, MARIA TERESA.. MARITAL STATUS: ENGAGED TO BE . OTHERS AT HOME: GIRLFRIEND. PAIN CLINIC PFS, CLERGY, PUBLIC HEALTH REFERRALS HAS THE PATIENT BEEN EDUCATED REGARDING HIS/HER PLAN OF CARE?YES HAS THE PATIENT BEEN EDUCATED REGARDING PAIN, THE RISK FOR PAIN, THE IMPORTANCE OF EFFECTIVE PAIN MANAGEMENT, AND THE PAIN ASSESSMENT PROCESS?YES HOUSING: [employer]. ADVANCE DIRECTIVE ADVANCE DIRECTIVE DISCUSSED WITH PATIENT:YES PT HAS NO ADVANCED DIRECTIVES, GIVEN INFORMATION AND INSTRUCTIONS REVIEWED WITH PT 06/19/18 1100 LASREVIEWED WITH PT 07/13/18 0921 LAS. HOSPITALIZATION/MAJOR DIAGNOSTIC PROCEDURE CHOLECYSTECTOMY 2000 TWICE FOR PNEUMONIA AND BROKEN RIB 03/2017 REVIEW OF SYSTEMS REVIEWED BY: PROVIDER: MICHEAL UREÑA MD . CONSTITUTIONAL: ANY CHANGE IN YOUR MEDICAL CONDITION? NO . CHILLS NO . FEVER NO . INFECTION: DO YOU HAVE NEW INFECTIONS? NO . DO YOU HAVE HISTORY OF MRSA? NO . MUSCULOSKELETAL: ANY NEW PATTERNS OF PAIN OR NUMBNESS? NO . GASTROENTEROLOGY: ANY NEW CHANGE IN BOWEL CONTROL? NO . GENITOURINARY: ANY NEW CHANGE IN BLADDER CONTROL? NO . IS THERE A CHANCE YOU COULD BE ? NO . HEMATOLOGY/LYMPH: DO YOU TAKE ANY BLOOD THINNERS? (FOR EXAMPLE- COUMADIN, PLAVIX, AGGRENOX, PLATEL, PRADAXA, OR XARELTO) NO . WHEN WAS YOUR LAST DOSE? DATE: TIME: . NEUROLOGY: HAVE YOU FALLEN IN THE PAST 12 MONTHS? NO . ANY NEW EXTREMITY NUMBNESS OR WEAKNESS? NO . CARDIOLOGY: DO YOU HAVE A PACEMAKER OR DEFIBRILLATOR? NO . RESPIRATORY: HAVE YOU BEEN SICK IN THE PAST WEEK? NO . FEVER NO . FLU LIKE SYMPTOMS? NO . COUGH NO . INTEGUMENTARY: DO YOU HAVE ANY RASHES OR OPEN SORES? NO . ALLERGIC/IMMUNO: ARE YOU ALLERGIC TO IV DYE? NO . ANY NEW ALLERGIES? NO . PSYCHIATRIC: DO YOU HAVE THOUGHTS OF HURTING YOURSELF OR SOMEONE ELSE? NO . ARE YOU ABUSED, NEGLECTED, OR IN AN UNSAFE ENVIRONMENT? NO . ENDOCRINOLOGY: ARE YOU DIABETIC? NO . OTHER: DO YOU NEED ANY PRESCRIPTIONS? NO . IF YES, PLEASE LIST: ____ . ANY NEW PROBLEMS WITH YOUR MEDICATIONS? NO . WHEN DID YOU LAST EAT? ____ . WHEN DID YOU LAST DRINK? ____ . WHAT DID YOU LAST DRINK? ____ . NAME OF PERSON DRIVING YOU HOME? ____ . DO YOU HAVE ANY OTHER QUESTIONS OR CONCERNS PT REPORTS HE IS HAVING SURGERY ON HIS LEFT SHOULDER TOMORROW IN [place] . VITAL SIGNS WT 178.6 LBS, HT 78 IN, BMI 20.64 INDEX, BP 151/83 MM HG, HR 89 /MIN, RR 18 /MIN, TEMP 98.7 F, OXYGEN SAT % 93%, SAFE IN ENV? (Y/N) YES, NA INITIALS AW 0914, REVIEWED BY: BETTY. EXAMINATION GENERAL EXAMINATION: PATIENT IS ALERT O X 3 AND COOPERATIVE. PATIENT HAS DIFFICULTY ABDUCTING THE UPPER EXTREMITIES. HAND ENGRAVER FLATWARE OVER THE LEFT SIDE IS REDUCED. ASSESSMENTS PAIN IN LEFT SHOULDER - M25.512 (PRIMARY) OTHER CHRONIC PAIN - G89.29 TREATMENT PAIN IN LEFT SHOULDER CLINICAL NOTES: WE DISCUSSED SEVERAL ISSUES WITH MR. LANDIS'S PAIN MANAGEMENT CASE. THE PATIENT IS HAVING SURGERY ON HIS LEFT SHOULDER TOMORROW, SO HE WILL FOLLOW UP IN 6 WEEKS AFTER HE HAS RECOVERED. I WILL SEND THE PROVIDER AGREEMENT TO HIS PRIMARY CARE PHYSICIAN REGARDING HIS PAIN MEDICATION. INSTRUCTIONS WERE GIVEN, QUESTIONS WERE ANSWERED, PATIENT REPORTS UNDERSTANDING AND AGREES WITH THE PLAN. I, GEOVANNI LOWE, DOCUMENTED THE ABOVE INFORMATION ACTING A SCRIBE FOR DR. UREÑA. I HAVE REVIEWED THE ABOVE DOCUMENT, WRITTEN BY GEOVANNI MARREROIBSolange AND I VERIFY THAT IT IS ACCURATE. PROCEDURE CODES FA211 ESTABILISHED PATIENT [facility] FACILITY CHARGE G8427 CURRENT MEDS W/DOSAGES DOCUMENTED G8730 PAIN ASSESS POS TOOL F/U PLAN DOC DISPOSITION & COMMUNICATION FOLLOW UP 6 WEEKS (REASON: LEFT SHOULDER) ELECTRONICALLY SIGNED BY MICHEAL UREÑA MD, MD ON 07/25/2018 AT 06:59 PM EDT DISCLAIMER : THIS IS A VISIT SUMMARY EXTRACTED FROM THE [employer] CHART. IT IS NOT A COPY OF THE [employer] PROGRESS NOTE. TIFFD
== END ==
LOC: M PAIN 09:45
PROVIDERS: ATTEND Anesthesiology
DX: M25.512 Pain in left shoulder (principal); G89.29 Other chronic pain; D57.1 Sickle-cell disease without crisis; E89.0 Postprocedural hypothyroidism; J44.9 Chronic obstructive pulmonary disease, unspecified; M19.90 Unspecified osteoarthritis, unspecified site; Z79.899 Other long term (current) drug therapy; Z88.5 Allergy status to narcotic agent; Z87.891 Personal history of nicotine dependence

== ENCOUNTER → 2018-08-06 | Outpatient (REF) | payer OTHER ==
[2018-08-06 16:56] LABS: ALBUMIN 4.1 GM/DL (3.2-5.2); ALT/SGPT 15 U/L (12-78); BILIRUBIN,TOTAL 0.7 MG/DL (0.2-1.0); BLOOD UREA NITROGEN 10 MG/DL (7-18); CALCIUM LEVEL 8.8 MG/DL (8.8-10.2); CARBON DIOXIDE LEVEL 28 MEQ/L (21-32); CHLORIDE LEVEL 109 MEQ/L (98-107); CREATININE FOR GFR 0.98 MG/DL (0.70-1.30); GLOMERULAR FILTRATION RATE > 60.0 (>49); GLUCOSE, FASTING 84 MG/DL (70-100); POTASSIUM SERUM 4.1 MEQ/L (3.5-5.1); SODIUM LEVEL 141 MEQ/L (136-145); TOTAL PROTEIN 7.7 GM/DL (6.4-8.2)
[2018-08-06 17:19] LABS: BASO # 0.1 10^3/uL (0.0-0.2); BASO % 0.9 % (0.0-1.0); EOS # 0.2 10^3/uL (0.0-0.50); EOS % 2.8 % (0.0-3.0); HEMATOCRIT 38.2 % (42.0-52.0); HEMOGLOBIN 13.8 g/dl (13.5-17.5); LYMPH # 2.6 10^3/uL (1.5-4.5); LYMPH % 41.3 % (24.0-44.0); MEAN CORPUSCULAR HEMOGLOBIN 28.2 pg (27.0-33.0); MEAN CORPUSCULAR HGB CONC 36.1 g/dl (32.0-36.5); MONO # 0.5 10^3/uL (0.0-0.8); MONO % 7.7 % (0.0-5.0); NEUTROPHILS % 47.1 % (36.0-66.0); WHITE BLOOD COUNT 6.4 10^3/uL (4.0-10.0)
[2018-08-06 18:45] LABS: PLATELET COUNT, AUTOMATED 110 10^3/uL (150-450)
== END ==
LOC: M SFHCLERA 12:05
PROVIDERS: ATTEND Family Medicine
DX: R51 Headache (principal)

== ENCOUNTER → 2018-08-13 | Outpatient (CLI) | payer OTHER ==
[~2018-08-13] MED LIST changes: +ASPI-164; +HYDR-3715 PO; -NAPR-50 PO; +NAPR-837 PO; -NORCOTAB PO; -SM A1TAB; -VICO5TAB16 PO; +VICO5TAB17 PO
--- NOTE | 2018-08-13 09:52 | REP ---
CT Head without contrast HISTORY: Headache COMPARISON: 06/16 There is no intraparenchymal hemorrhage, acute infarct, mass or midline shift. The ventricular system and cortical sulci are dilated consistent with minimal volume loss. There is no extra cerebral collection. There is no fracture. The visualized sinuses are clear. IMPRESSION: Minimal volume loss. Electronically Signed by Bart Ge MD 08/13/2018 09:43 A
== END ==
LOC: M RAD 09:27
PROVIDERS: ATTEND Family Medicine
DX: R51 Headache (principal)

== ENCOUNTER → 2018-08-25 | Outpatient (CLI) | payer OTHER ==
--- NOTE | 2018-08-25 12:04 | REP ---
Bilateral knees: Right knee five views: There is mild medial compartment joint space narrowing. There are small osteophytes forming at the medial joint line. Findings are compatible with mild medial compartment osteoarthritis. The lateral and patellofemoral compartments are unremarkable. I suspect there is a small joint effusion. Mineralization is normal. No calcifications. Impression: Medial compartment osteoarthritis. Small joint effusion. Left knee five views: There is mild medial compartment joint space narrowing and small osteophytes at the medial joint line compatible with medial compartment osteoarthritis. Lateral compartment and patellofemoral compartment are unremarkable. There is a joint effusion. Mineralization is normal. There are no calcifications. There is a bipartite patella. Impression: Medial compartment osteoarthritis. Joint effusion. Bipartite patella. Electronically Signed by Pop Domínguez MD 08/25/2018 11:56 A
== END ==
LOC: M LRY 09:56
PROVIDERS: ATTEND Family Medicine
DX: M25.561 Pain in right knee (principal)

== ENCOUNTER → 2018-09-07 | Outpatient (CLI) | payer OTHER ==
[~2018-09-07] MED LIST changes: +DICL1GEL3
--- NOTE | 2018-09-24 00:58 | ECWPNPC ---
PATIENT NAME: BRAD LANDIS : 1955 GENDER: MALE VISIT DATE: 09/07/2018 DISCHARGE DATE: 09/07/18 1240 VISIT LOCKED DATE TIME: PHYSICIAN: MICHEAL UREÑA MD RESOURCE: MICHEAL UREÑA MD REASON FOR APPOINTMENT 1. LEFT SHOULDER HISTORY OF PRESENT ILLNESS HISTORY OF PRESENT ILLNESS: PAIN THE PATIENT DESCRIBES THE PAIN... 63 YEAR OLD MALE PATIENT WITH A HISTORY OF CHRONIC LEFT SHOULDER PAIN. THE PATIENT DESCRIBES THE PAIN SEVERE, ACHING, AND STABBING WITH A PAIN SCORE OF 8-10/10 DEPENDING ON PHYSICAL ACTIVITY. THE PATIENT HAD LEFT SHOULDER SURGERY DONE ON 07/14/2018. THE PATIENT SAYS THE PAIN PERSISTS AFTER THE SURGERY. THE PATIENT REPORTS HIS SURGEON WHO PERFORMED THE LEFT SHOULDER SURGERY SAID IF THE PAIN CONTINUES, THEY WOULD PERFORM ANOTHER SURGERY IN . THE PATIENT SAYS DUE TO THE TERRIBLE PAIN AND LACK OF PAIN RELIEF, HE CANNOT SLEEP OR FUNCTION PROPERLY. PATIENT DENIES UNEXPLAINABLE WEIGHT LOSS, FEVER, CHILLS, NEW CHANGES ON HIS URINARY OR BOWEL CONTROL. 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 SOCIAL HISTORY GENERAL: TOBACCO USE ARE YOU A:FORMER SMOKER 9 DAYS HOW LONG HAS IT BEEN SINCE YOU LAST SMOKED?3-6 MONTHS HIV / HEP-C SCREENING HIV TEST OFFERED TO PATIENT:YES DATE OFFERED:05/26/2018 TEST ACCEPTED:YES BROCHURE PROVIDED TO PATIENTNO HEP-C TEST OFFERED TO PATIENT:YES DATE OFFERED:05/26/2018 TEST ACCEPTED:NO REASON:PATIENT DECLINED OTHERS AT HOME: GIRLFRIEND. HOUSING: [employer]. EDUCATION 8TH GRADE. DIET: REGULAR. 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 NO DOMESTIC VIOLENCE STATUS: DENIES 08/2017 BMI CARE GOAL FOLLOW-UP ABOVE NORMAL BMI FOLLOW-UPDIETARY MANAGEMENT EDUCATION, GUIDANCE, AND COUNSELING RECREATIONAL DRUG USE DENIES. EXERCISE: CHOPPING WOOD, STACKING WOOD, MARIA TERESA.. LEARNING BARRIERS / SPECIAL NEEDS BARRIERS TO LEARNING?NO HEARING IMPAIRED?NO VISION IMPAIRED?NO COGNITIVELY IMPAIRED?NO READINESS TO LEARN?YES LEARNING PREFERENCES?YES ANY LEARNING CAPABILITIES PRESENT?YES EMOTIONAL BARRIERS?NO SPECIAL DEVICES?NO COAL HANDLING SUPERVISOR NEEDED?NO LUNG CANCER SCREENING SMOKING STATUS:CURRENT SMOKER PAIN CLINIC PFS, CLERGY, PUBLIC HEALTH REFERRALS HAS THE PATIENT BEEN EDUCATED REGARDING HIS/HER PLAN OF CARE?YES HAS THE PATIENT BEEN EDUCATED REGARDING PAIN, THE RISK FOR PAIN, THE IMPORTANCE OF EFFECTIVE PAIN MANAGEMENT, AND THE PAIN ASSESSMENT PROCESS?YES LATEX QUESTIONNAIRE LATEX ALLERGY : HAVE YOU EVER DEVELOPED ANY TYPE OF REACTION AFTER HANDLING LATEX PRODUCTS SUCH RUBBER GLOVES, CONDOMS, DIAPHRAGMS, BALLOONS, SOCKS, OR UNDERWEAR?NO LATEX ALLERGY : HAVE YOU EVER DEVELOPED ANY TYPE OF REACTION DURING OR AFTER DENTAL APPOINTMENT, VAGINAL/RECTAL EXAMINATION, SURGICAL PROCEDURE, OR ANY OTHER EXPOSURE?NO LATEX RISK : HAVE YOU EVER HAD ANY DIFFICULTY BREATHING OR HIVES AFTER EATING OR HANDLING ANY FRUITS, OR VEGETABLES; SUCH KIWI, BANANAS, STONE FRUITS, OR CHESTNUTSNO LATEX RISK : DO YOU HAVE A PREVIOUS PERSONAL HISTORY OF MORE THAN NINE SURGERIES, SPINA BIFIDA, OR REPEATED CATHERTIZATIONS? NO LATEX RISK : ARE YOU FREQUENTLY EXPOSED TO LATEX PRODUCTS IN YOUR OCCUPATION?NO DATE ASKED : 08/25/2018 CAFFEINE CAFFEINE USE?YES HOW OFTEN AND HOW MUCH? 2 POTS OF COFFEE PER DAY ADVANCE DIRECTIVE ADVANCE DIRECTIVE DISCUSSED WITH PATIENT:YES PT HAS NO ADVANCED DIRECTIVES, GIVEN INFORMATION AND INSTRUCTIONS. DENIES ASSISTANCE WITH FORM. 09/07/18 BUDDHISM NO CONFUCIANISM BELIEFS THAT WOULD IMPACT HEALTH CARE. MARITAL STATUS: ENGAGED TO BE . 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 SEXUAL HX HAD SEX IN THE LAST 12 MONTHS (VAGINAL, ORAL, OR ANAL)?NO REVIEWED WITH PT 06/19/18 1100 LASREVIEWED WITH PT 07/13/18 0921 LASREVIEWED WITH PT 09/07/18 1130 BV. HOSPITALIZATION/MAJOR DIAGNOSTIC PROCEDURE CHOLECYSTECTOMY 2000 TWICE FOR PNEUMONIA AND BROKEN RIB 03/2017 REVIEW OF SYSTEMS REVIEWED BY: PROVIDER: MICHEAL UREÑA MD . CONSTITUTIONAL: ANY CHANGE IN YOUR MEDICAL CONDITION? NO . CHILLS NO . FEVER NO . INFECTION: DO YOU HAVE NEW INFECTIONS? NO . DO YOU HAVE HISTORY OF MRSA? NO . MUSCULOSKELETAL: ANY NEW PATTERNS OF PAIN OR NUMBNESS? NO . GASTROENTEROLOGY: ANY NEW CHANGE IN BOWEL CONTROL? NO . GENITOURINARY: ANY NEW CHANGE IN BLADDER CONTROL? NO . IS THERE A CHANCE YOU COULD BE ? NO . HEMATOLOGY/LYMPH: DO YOU TAKE ANY BLOOD THINNERS? (FOR EXAMPLE- COUMADIN, PLAVIX, AGGRENOX, PLATEL, PRADAXA, OR XARELTO) NO . WHEN WAS YOUR LAST DOSE? DATE: TIME: . NEUROLOGY: HAVE YOU FALLEN IN THE PAST 12 MONTHS? NO . ANY NEW EXTREMITY NUMBNESS OR WEAKNESS? NO . CARDIOLOGY: DO YOU HAVE A PACEMAKER OR DEFIBRILLATOR? NO . RESPIRATORY: HAVE YOU BEEN SICK IN THE PAST WEEK? NO . FEVER NO . FLU LIKE SYMPTOMS? NO . COUGH NO . INTEGUMENTARY: DO YOU HAVE ANY RASHES OR OPEN SORES? NO . ALLERGIC/IMMUNO: ARE YOU ALLERGIC TO IV DYE? NO . ANY NEW ALLERGIES? NO . PSYCHIATRIC: DO YOU HAVE THOUGHTS OF HURTING YOURSELF OR SOMEONE ELSE? NO . ARE YOU ABUSED, NEGLECTED, OR IN AN UNSAFE ENVIRONMENT? NO . ENDOCRINOLOGY: ARE YOU DIABETIC? NO . OTHER: DO YOU NEED ANY PRESCRIPTIONS? NO . IF YES, PLEASE LIST: ____ . ANY NEW PROBLEMS WITH YOUR MEDICATIONS? NO . WHEN DID YOU LAST EAT? ____ . WHEN DID YOU LAST DRINK? ____ . WHAT DID YOU LAST DRINK? ____ . NAME OF PERSON DRIVING YOU HOME? ____ . DO YOU HAVE ANY OTHER QUESTIONS OR CONCERNS YES, PT STATES LEFT SHOULDER PAIN IS VERY SEVERE AND WOULD LIKE TO DISCUSS MEDICATION . VITAL SIGNS WT 178.0 LBS, HT 78 IN, BMI 20.57 INDEX, BP 151/79 MM HG, HR 95 /MIN, RR 18 /MIN, TEMP 98.6 F, OXYGEN SAT % 100%, NA INITIALS AW 1127, REVIEWED BY: BV. EXAMINATION GENERAL EXAMINATION: PATIENT IS ALERT O X 3 AND COOPERATIVE. HYPERPATHIA OVER THE LEFT SHOULDER. SURGICAL SCAR MEASURING 6 INCHES ON THE FRONT OF THE LEFT SHOULDER. PATIENT CANNOT ABDUCT LEFT ARM. HAND RN CLINICAL TRIALS OF LEFT HAND IS WEAKER THAN THE RIGHT HAND. THE PATIENT HAD AN AGGRAVATED, PAINED LOOK DURING THE APPOINTMENT. X-RAY OF THE LEFT SHOULDER DONE ON 01/15/2018 SHOWS LEFT SHOULDER TOTAL REPLACEMENT WITH CORTICAL IRREGULARITY AND SPURRING. ASSESSMENTS PAIN IN LEFT SHOULDER - M25.512 (PRIMARY) OTHER CHRONIC PAIN - G89.29 STATUS POST TOTAL REPLACEMENT OF LEFT SHOULDER - Z96.612 TREATMENT PAIN IN LEFT SHOULDER CLINICAL NOTES: WE DISCUSSED SEVERAL ISSUES WITH MR. LANDIS PAIN MANAGEMENT CASE. I RECEIVED A DOCTOR TO DOCTOR AGREEMENT FROM THE PATIENT'S PRIMARY CARE PHYSICIAN THAT WAS SIGNED ON 08/08/2018. I DISCUSSED THE RISKS ASSOCIATED WITH THE USE OF OPIOIDS INCLUDING THE POSSIBLE DEVELOPMENT OF ADDICTION OR TOLERANCE AND THE PATIENT VERBALIZED UNDERSTANDING. THE PATIENT SAID HE HAS NOT EXPERIENCED PAIN RELIEF FROM OTHER MEDICATIONS SUCH NSAID'S, HYDROCODONE, AND TRAMADOL, AND THE ONLY THING THAT HAS HELPED HIM IN THE PAST IS OXYCODONE. I WILL START THE PATIENT ON OXYCODONE 5 MG UP TO TWO TIMES A DAY AND MAXIMUM OF 60 TABLETS PER MONTH. THE PATIENT WILL SIGN A NARCOTIC AGREEMENT AND PERFORM A URINE TOXICOLOGY TODAY. ISTOP _#[id number] WAS REVIEWED. WE WILL DO AN OPIOID RISK ASSESSMENT DURING HIS NEXT VISIT. THE PATIENT WILL FOLLOW UP IN A MONTH. INSTRUCTIONS WERE GIVEN, QUESTIONS WERE ANSWERED, PATIENT REPORTS UNDERSTANDING AND AGREES WITH THE PLAN. I, DIAMOND DAVIS, DOCUMENTED THE ABOVE INFORMATION ACTING A SCRIBE FOR DR. UREÑA. I HAVE REVIEWED THE ABOVE DOCUMENT, WRITTEN BY DIAMOND BATRES AND I VERIFY THAT IT IS ACCURATE. . OTHERS START OXYCODONE HCL TABLET, 5 MG, 1 TABLET NEEDED, ORALLY FOR PAIN, EVERY 12 HRS MDD2, 30 DAYS, 60, REFILLS 0 PROCEDURE CODES FA211 ESTABILISHED PATIENT [facility] FACILITY CHARGE G8427 CURRENT MEDS W/DOSAGES DOCUMENTED G8730 PAIN ASSESS POS TOOL F/U PLAN DOC DISPOSITION & COMMUNICATION FOLLOW UP 4 WEEKS ELECTRONICALLY SIGNED BY MICHEAL UREÑA MD, MD ON 09/21/2018 AT 04:54 PM EDT DISCLAIMER : THIS IS A VISIT SUMMARY EXTRACTED FROM THE [employer] CHART. IT IS NOT A COPY OF THE [employer] PROGRESS NOTE. MTDD
== END ==
LOC: M PAIN 11:30
PROVIDERS: ATTEND Anesthesiology
DX: M25.512 Pain in left shoulder (principal); G89.29 Other chronic pain; D57.1 Sickle-cell disease without crisis; J44.9 Chronic obstructive pulmonary disease, unspecified; M19.90 Unspecified osteoarthritis, unspecified site; Z79.899 Other long term (current) drug therapy; Z88.5 Allergy status to narcotic agent; Z96.612 Presence of left artificial shoulder joint; Z87.891 Personal history of nicotine dependence; Z86.711 Personal history of pulmonary embolism

== ENCOUNTER 2018-09-13 11:27 | Emergency (ER) | payer OTHER ==
[~2018-09-13] VITALS: Ht 203.2 cm; Wt 80.8 kg
[~2018-09-13 11:27] MED LIST changes: -DICL1GEL3
[2018-09-13] MEDS ORDERED: DICL1GEL3 (11:35)
[2018-09-13] MEDS ORDERED: PERCOCET 5MG/325MG TAB PO ONE (12:15)
--- NOTE | 2018-09-13 12:27 | REP ---
LEFT SHOULDER, THREE VIEWS: Three view of the left shoulder are performed. Total shoulder prosthesis is noted unchanged in position. There is no acute fracture. There is mild spurring of the inferior bony glenoid. No lucency is seen surrounding the stem of the humeral prosthesis or surrounding the glenoid screws. There is chronic irregularity of the acromion. IMPRESSION: No change since prior study of 01/15/2018. No acute fracture or dislocation. Electronically Signed by Pop Zamora MD 09/13/2018 12:31 P
[2018-09-13 12:53] LABS: HEMATOCRIT 37.6 % (42.0-52.0); HEMOGLOBIN 13.5 g/dl (13.5-17.5); MEAN CORPUSCULAR HEMOGLOBIN 27.7 pg (27.0-33.0); MEAN CORPUSCULAR HGB CONC 35.9 g/dl (32.0-36.5); MEAN CORPUSCULAR VOLUME 77.2 fl (80.0-96.0); PLATELET COUNT, AUTOMATED 110 10^3/uL (150-450); RED BLOOD COUNT 4.87 10^6/uL (4.30-6.10); WHITE BLOOD COUNT 7.7 10^3/uL (4.0-10.0)
[2018-09-13 13:18] LABS: BLOOD UREA NITROGEN 6 MG/DL (7-18); CALCIUM LEVEL 8.1 MG/DL (8.8-10.2); CARBON DIOXIDE LEVEL 29 MEQ/L (21-32); CHLORIDE LEVEL 110 MEQ/L (98-107); CREATININE FOR GFR 0.92 MG/DL (0.70-1.30); GLOMERULAR FILTRATION RATE > 60.0 (>49); GLUCOSE, FASTING 90 MG/DL (70-100); POTASSIUM SERUM 4.4 MEQ/L (3.5-5.1); SODIUM LEVEL 141 MEQ/L (136-145)
[2018-09-13 13:23] LABS: ATYPICAL LYMPH 6 % (0-5); EOSINOPHILS 8 % (0-5); LYMPHOCYTES 40 % (16-52); MONOCYTES 6 % (0-8); NEUTROPHILS 40 % (35-75)
[2018-09-13 13:26] LABS: PLATELET ESTIMATE DECREASED (NORMAL); POIKILOCYTOSIS 1+; TARGET CELLS 1+
[2018-09-13 13:27] LABS: ANISOCYTOSIS 1+; MICROCYTOSIS 1+; SCHISTOCYTES 1+
[2018-09-13 14:01] VITALS: BP 118/81
== END 2018-09-13 14:03 | disposition home or self-care (01) ==
LOC: M ED 11:27
DX: M25.512 Pain in left shoulder (principal); D57.3 Sickle-cell trait; Z88.5 Allergy status to narcotic agent; F17.210 Nicotine dependence, cigarettes, uncomplicated

== ENCOUNTER → 2018-11-24 | Outpatient (REF) | payer OTHER ==
[~2018-11-24] MED LIST changes: +ACET1TAB55 PO; +ASPI81CH33 PO; +ATOR40TA75 PO; +DICL1GEL3
[2018-11-24 12:28] LABS: FREE T4 0.84 NG/DL (0.76-1.46); THYROID STIMULATING HORMONE 1.87 uIU/ML (0.358-3.740)
== END ==
LOC: M SFHCLERA 08:45
PROVIDERS: ATTEND Family Medicine
DX: E89.0 Postprocedural hypothyroidism (principal)

== ENCOUNTER → 2018-11-30 | Outpatient (CLI) | payer OTHER ==
[~2018-11-30] MED LIST changes: -ACET1TAB55 PO; -ASPI81CH33 PO; -ATOR40TA75 PO
--- NOTE | 2018-12-09 01:18 | ECWPNPC ---
PATIENT NAME: BRAD LANDIS : 1955 GENDER: MALE VISIT DATE: 11/30/2018 DISCHARGE DATE: 11/30/18 1314 VISIT LOCKED DATE TIME: PHYSICIAN: MICHEAL UREÑA MD RESOURCE: MICHEAL UREÑA MD REASON FOR APPOINTMENT 1. 1 MONTH HISTORY OF PRESENT ILLNESS HISTORY OF PRESENT ILLNESS: PAIN THE PATIENT DESCRIBES THE PAIN... 63 YEAR OLD MALE PATIENT WITH A HISTORY OF CHRONIC LEFT SHOULDER PAIN. THE PATIENT DESCRIBES THE PAIN ACHING, STABBING, SHARP, CONTINUOUS, AND NIGHTLY WITH A PAIN SCORE OF 7-10/10 DEPENDING ON PHYSICAL ACTIVITY. THE PATIENT'S CARTON MACHINE OPERATOR, BAKARI ROBERT, FROM [facility] IS PRESENT AND MR. LANDIS SAYS HE GIVES AUTHORIZATION FOR HIS CASE TO BE DISCUSSED WITH HIS CARTON MACHINE OPERATOR. THE PATIENT SAYS THE PAIN IS SEVERE TO TOUCH IN A SPECIFIC LOCATION. THE PATIENT SAYS THE PAIN HAPPENS OFTEN WHILE MOVING AROUND AT HOME AND WHEN HE LAYS DOWN TO SLEEP. THE PATIENT STATES HE HAS A HISTORY OF TWO LEFT SHOULDER SURGERIES AND HAS ANOTHER [facility] SURGEON APPOINTMENT IN , HOWEVER HE DOES NOT WANT TO GO THROUGH A THIRD SURGERY. THE PATIENT SAYS OVER THE LAST THREE MONTHS HE HAS USED OXYCODONE 60 TABLETS NEEDED. THE PATIENT SAYS HE HAS TRIED PATCHES FOR HIS SHOULDER PAIN IN THE PAST, HOWEVER THEY DON'T COVER HIS PAIN. PATIENT DENIES UNEXPLAINABLE WEIGHT LOSS, FEVER, CHILLS, NEW CHANGES ON HIS URINARY OR BOWEL CONTROL. FALL RISK SCREENING: SCREENING :NO FALLS REPORTED IN THE LAST YEAR CURRENT MEDICATIONS TAKING KETOCONAZOLE 2 % CREAM 1 APPLICATION TO AFFECTED AREA EXTERNALLY ONCE A DAY TAKING HYDROCORTISONE 0.5 % CREAM 1 APPLICATION TO AFFECTED AREA EXTERNALLY ONCE A DAY TAKING CLARITIN 10 MG TABLET 1 TABLET ORALLY ONCE A DAY TAKING VENTOLIN HFA 108 (90 BASE) MCG/ACT AEROSOL SOLUTION 2 PUFFS NEEDED INHALATION EVERY 4 HRS TAKING STIOLTO RESPIMAT 2.5-2.5 MCG/ACT AEROSOL SOLUTION 2 PUFFS INHALATION ONCE A DAY TAKING VENTOLIN HFA 108 (90 BASE) MCG/ACT AEROSOL SOLUTION 2 PUFFS NEEDED INHALATION EVERY 4 HRS TAKING GABAPENTIN 300 MG CAPSULE 3 CAPSULES ORALLY TID, NOTES: PER PT 3 CAPS TID MEDICATION LIST REVIEWED AND RECONCILED WITH THE PATIENT PAST MEDICAL HISTORY PUMONARY NODULES AND CAVITARY LESION PPD NEGATIVE, OCTOBER, 2015 SICKLE CELL DISEASE (SC) INSOMNIA PARTIAL THYROIDECTOMY TOBACCO DEPENDENCE PULMONARY EMBOLISM 2017 COPD OSTEOARTHRITIS 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 SISTER PASSED 3 WEEKS- 56 YEARS OLD FORM SICKLE CELL. SOCIAL HISTORY GENERAL: TOBACCO USE ARE YOU A:CURRENT SMOKER HOW MANY CIGARETTES A DAY DO YOU SMOKE?5 OR LESS HOW OFTEN DO YOU SMOKE CIGARETTES?EVERY DAY PATIENT COUNSELED ON THE DANGERS OF TOBACCO USE AND URGED TO QUIT:11/03/2018 HIV / HEP-C SCREENING HIV TEST OFFERED TO PATIENT:YES DATE OFFERED:05/26/2018 TEST ACCEPTED:YES BROCHURE PROVIDED TO PATIENTNO HEP-C TEST OFFERED TO PATIENT:YES DATE OFFERED:05/26/2018 TEST ACCEPTED:NO REASON:PATIENT DECLINED OTHERS AT HOME: GIRLFRIEND. HOUSING: [employer]. EDUCATION 8TH GRADE. DIET: REGULAR. LANGUAGE IRISH. NO DOMESTIC VIOLENCE STATUS: DENIES 08/2017 BMI CARE GOAL FOLLOW-UP ABOVE NORMAL BMI FOLLOW-UPDIETARY MANAGEMENT EDUCATION, GUIDANCE, AND COUNSELING RECREATIONAL DRUG USE DENIES. EXERCISE: CHOPPING WOOD, STACKING WOOD, MARIA TERESA.. LEARNING BARRIERS / SPECIAL NEEDS BARRIERS TO LEARNING?NO HEARING IMPAIRED?NO VISION IMPAIRED?NO COGNITIVELY IMPAIRED?NO READINESS TO LEARN?YES LEARNING PREFERENCES?YES ANY LEARNING CAPABILITIES PRESENT?YES EMOTIONAL BARRIERS?NO SPECIAL DEVICES?NO TIEING MACHINE OPERATOR NEEDED?NO LUNG CANCER SCREENING SMOKING STATUS:CURRENT SMOKER PAIN CLINIC PFS, CLERGY, PUBLIC HEALTH REFERRALS HAS THE PATIENT BEEN EDUCATED REGARDING HIS/HER PLAN OF CARE?YES HAS THE PATIENT BEEN EDUCATED REGARDING PAIN, THE RISK FOR PAIN, THE IMPORTANCE OF EFFECTIVE PAIN MANAGEMENT, AND THE PAIN ASSESSMENT PROCESS?YES LATEX QUESTIONNAIRE LATEX ALLERGY : HAVE YOU EVER DEVELOPED ANY TYPE OF REACTION AFTER HANDLING LATEX PRODUCTS SUCH RUBBER GLOVES, CONDOMS, DIAPHRAGMS, BALLOONS, SOCKS, OR UNDERWEAR?NO LATEX ALLERGY : HAVE YOU EVER DEVELOPED ANY TYPE OF REACTION DURING OR AFTER DENTAL APPOINTMENT, VAGINAL/RECTAL EXAMINATION, SURGICAL PROCEDURE, OR ANY OTHER EXPOSURE?NO LATEX RISK : HAVE YOU EVER HAD ANY DIFFICULTY BREATHING OR HIVES AFTER EATING OR HANDLING ANY FRUITS, OR VEGETABLES; SUCH KIWI, BANANAS, STONE FRUITS, OR CHESTNUTSNO LATEX RISK : DO YOU HAVE A PREVIOUS PERSONAL HISTORY OF MORE THAN NINE SURGERIES, SPINA BIFIDA, OR REPEATED CATHERIZATIONS? NO LATEX RISK : ARE YOU FREQUENTLY EXPOSED TO LATEX PRODUCTS IN YOUR OCCUPATION?NO DATE ASKED : 08/25/2018 CAFFEINE CAFFEINE USE?YES HOW OFTEN AND HOW MUCH? 2 POTS OF COFFEE PER DAY ADVANCE DIRECTIVE ADVANCE DIRECTIVE DISCUSSED WITH PATIENT:YES PT HAS NO ADVANCED DIRECTIVES, GIVEN INFORMATION AND INSTRUCTIONS. DENIES ASSISTANCE WITH FORM. 11/30/18 YAZIDISM NO CHEONDOISM BELIEFS THAT WOULD IMPACT HEALTH CARE. MARITAL STATUS: ENGAGED TO BE . 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 HOSPITALIZATION/MAJOR DIAGNOSTIC PROCEDURE CHOLECYSTECTOMY 2000 TWICE FOR PNEUMONIA AND BROKEN RIB 03/2017 REVIEW OF SYSTEMS REVIEWED BY: PROVIDER: MICHEAL UREÑA MD . CONSTITUTIONAL: ANY CHANGE IN YOUR MEDICAL CONDITION? NO . CHILLS NO . FEVER NO . INFECTION: DO YOU HAVE NEW INFECTIONS? NO . DO YOU HAVE HISTORY OF MRSA? NO . MUSCULOSKELETAL: ANY NEW PATTERNS OF PAIN OR NUMBNESS? YES, PT COMPLAINS OF SEVERE INCREASING LEFT SHOULDER PAIN. . GASTROENTEROLOGY: ANY NEW CHANGE IN BOWEL CONTROL? NO . GENITOURINARY: ANY NEW CHANGE IN BLADDER CONTROL? NO . IS THERE A CHANCE YOU COULD BE ? NO . HEMATOLOGY/LYMPH: DO YOU TAKE ANY BLOOD THINNERS? (FOR EXAMPLE- COUMADIN, PLAVIX, AGGRENOX, PLATEL, PRADAXA, OR XARELTO) NO . WHEN WAS YOUR LAST DOSE? DATE: TIME: . NEUROLOGY: HAVE YOU FALLEN IN THE PAST 12 MONTHS? NO . ANY NEW EXTREMITY NUMBNESS OR WEAKNESS? NO . CARDIOLOGY: DO YOU HAVE A PACEMAKER OR DEFIBRILLATOR? NO . RESPIRATORY: HAVE YOU BEEN SICK IN THE PAST WEEK? NO . FEVER NO . FLU LIKE SYMPTOMS? NO . COUGH NO . INTEGUMENTARY: DO YOU HAVE ANY RASHES OR OPEN SORES? NO . ALLERGIC/IMMUNO: ARE YOU ALLERGIC TO IV DYE? NO . ANY NEW ALLERGIES? NO . PSYCHIATRIC: DO YOU HAVE THOUGHTS OF HURTING YOURSELF OR SOMEONE ELSE? NO . ARE YOU ABUSED, NEGLECTED, OR IN AN UNSAFE ENVIRONMENT? NO . ENDOCRINOLOGY: ARE YOU DIABETIC? NO . OTHER: DO YOU NEED ANY PRESCRIPTIONS? YES, OXYCODONE . IF YES, PLEASE LIST: ____ . ANY NEW PROBLEMS WITH YOUR MEDICATIONS? NO . WHEN DID YOU LAST EAT? ____ . WHEN DID YOU LAST DRINK? ____ . WHAT DID YOU LAST DRINK? ____ . NAME OF PERSON DRIVING YOU HOME? ____ . DO YOU HAVE ANY OTHER QUESTIONS OR CONCERNS NO . VITAL SIGNS WT 173.8 LBS, HT 78 IN, BMI 20.08 INDEX, BP 161/84 MM HG, HR 81 /MIN, RR 16 /MIN, TEMP 98.5 F, OXYGEN SAT % 99%, NA INITIALS AW 1203, REVIEWED BY: BV. EXAMINATION GENERAL EXAMINATION: PATIENT IS ALERT O X 3 AND COOPERATIVE. PATIENT HAS DIFFICULTY USING HIS LEFT ARM. 6 INCH SCAR PRESENT OVER HIS LEFT SHOULDER. HYPERPATHIA IS PRESENT OVER MEDICAL ASPECT OF LEFT SHOULDER SCAR. PATIENT JUMPS DUE TO SEVER PAIN FROM TOUCH. X-RAY DONE ON 01/15/2018 SHOWS STATUS POST LEFT SHOULDER REPLACEMENT AND IRREGULARITY AT THE ACROMION PROCESS. 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 LANDIS' PAIN MANAGEMENT CASE. I DISCUSSED WITH THE PATIENT THE OPTION OF A LEFT SHOULDER INJECTION, WHICH THE PATIENT SAID HE WILL CONSIDER FOR THE FUTURE. THE PATIENT HAS USED 60 TABLETS OF OXYCODONE OVER THE LAST 3 MONTHS SO I WILL REFILL HIS OXYCODONE 5 MG 20 TABLETS FOR THE MONTH. URINE TOXICOLOGY DONE ON 09/07/2018 SHOWS CONCURRENT RESULTS. ISTOP _# [id number] WAS REVIEWED. THE PATIENT IS TO DISCUSS WITH HIS PRIMARY CARE PROVIDER TO CONSIDER CONTINUING HIS MEDICATION MANAGEMENT AND FOR HIM TO RETURN TO OUR CLINIC FOR INJECTION THERAPY. THE PATIENT WILL FOLLOW UP IN 3 MONTHS WITH THE NURSE PRACTITIONER. INSTRUCTIONS WERE GIVEN, QUESTIONS WERE ANSWERED, PATIENT REPORTS UNDERSTANDING AND AGREES WITH THE PLAN. I, DIAMOND DAVIS, DOCUMENTED THE ABOVE INFORMATION ACTING A SCRIBE FOR DR. UREÑA. I HAVE REVIEWED THE ABOVE DOCUMENT, WRITTEN BY DIAMOND BATRES AND I VERIFY THAT IT IS ACCURATE. . OTHERS START OXYCODONE HCL TABLET, 5 MG, 1 TABLET NEEDED, ORALLY FOR PAIN, DAILY, 30 DAYS, 20, REFILLS 0 PROCEDURE CODES FA211 ESTABILISHED PATIENT [facility] FACILITY CHARGE G8427 CURRENT MEDS W/DOSAGES DOCUMENTED G8730 PAIN ASSESS POS TOOL F/U PLAN DOC DISPOSITION & COMMUNICATION FOLLOW UP 3 MONTHS (REASON: MEDS, F/U WITH YING BRYANT) ELECTRONICALLY SIGNED BY MICHEAL UREÑA MD, ON 12/08/2018 AT 03:06 PM EDT DISCLAIMER : THIS IS A VISIT SUMMARY EXTRACTED FROM THE [employer] CHART. IT IS NOT A COPY OF THE [employer] PROGRESS NOTE. MTDD
== END ==
LOC: M PAIN 11:45
PROVIDERS: ATTEND Anesthesiology
DX: G89.29 Other chronic pain (principal); M25.512 Pain in left shoulder; D36.10 Benign neoplasm of peripheral nerves and autonomic nervous system, unspecified; R91.8 Other nonspecific abnormal finding of lung field; G47.00 Insomnia, unspecified; F17.210 Nicotine dependence, cigarettes, uncomplicated; J44.9 Chronic obstructive pulmonary disease, unspecified; M19.90 Unspecified osteoarthritis, unspecified site; D57.1 Sickle-cell disease without crisis; Z86.711 Personal history of pulmonary embolism; M87.852 Other osteonecrosis, left femur; Z90.49 Acquired absence of other specified parts of digestive tract; Z88.5 Allergy status to narcotic agent; Z79.899 Other long term (current) drug therapy

== ENCOUNTER → 2019-01-15 | Outpatient (CLI) | payer OTHER ==
--- NOTE | 2019-01-15 09:50 | REP ---
Clinical: Right hip pain. Technique: Neutral and frog lateral views of the right hip. Findings: Mild age-related changes include subtle increase sclerosis to the acetabular roof with minimal joint space narrowing. No osteophytosis, calcified loose bodies or periarticular calcifications are appreciated. No acute fracture dislocation. Findings: Mild age-related degenerative changes. Electronically Signed by Soy Nevarez MD 01/15/2019 09:42 A
== END ==
LOC: M LRY 09:18
PROVIDERS: ATTEND Family Medicine
DX: M25.551 Pain in right hip (principal); M16.11 Unilateral primary osteoarthritis, right hip

== ENCOUNTER → 2019-01-15 | Outpatient (REF) | payer OTHER ==
[2019-01-15 12:29] LABS: CHOLESTEROL RISK RATIO 3.905 (<5)
== END ==
LOC: M SFHCLERA 09:04
PROVIDERS: ATTEND Family Medicine
DX: Z13.220 Encounter for screening for lipoid disorders (principal)

== ENCOUNTER → 2019-02-25 | Outpatient (REF) | payer OTHER ==
[2019-02-25 16:39] LABS: BLOOD UREA NITROGEN 8 MG/DL (7-18); CALCIUM LEVEL 8.8 MG/DL (8.8-10.2); CARBON DIOXIDE LEVEL 29 MEQ/L (21-32); CHLORIDE LEVEL 107 MEQ/L (98-107); CHOLESTEROL LEVEL 140 MG/DL (<200); CHOLESTEROL RISK RATIO 2.295 (<5); CREATININE FOR GFR 1.02 MG/DL (0.70-1.30); GLOMERULAR FILTRATION RATE > 60.0 (>49); GLUCOSE, FASTING 92 MG/DL (70-100); HDL CHOLESTEROL 61 MG/DL (>40); LDL CHOLESTEROL 57 MG/DL (<100); NON-HDL-C 79 MG/DL; POTASSIUM SERUM 3.9 MEQ/L (3.5-5.1); SODIUM LEVEL 139 MEQ/L (136-145); TRIGLYCERIDES LEVEL 108 MG/DL (<150)
== END ==
LOC: M SFHCLERA 11:09
PROVIDERS: ATTEND Family Medicine
DX: Z01.818 Encounter for other preprocedural examination (principal); E78.5 Hyperlipidemia, unspecified

== ENCOUNTER → 2019-03-21 | Outpatient (CLI) | payer OTHER ==
[~2019-03-21] MED LIST changes: +ASPI81CH33 PO; +ATOR40TA75 PO
== END ==
LOC: M LAB 09:57
PROVIDERS: ATTEND Internal Medicine Hematology
DX: D57.20 Sickle-cell/Hb-C disease without crisis (principal)

== ENCOUNTER 2019-03-22 07:18 | Outpatient (CLI) | payer OTHER ==
[~2019-03-22] VITALS: Ht 203.2 cm; Wt 81.0 kg
[2019-03-22] VITALS (12 sets, daily range): BP systolic 138–163; BP diastolic 73–94
[~2019-03-22 07:18] MED LIST changes: +ACETAMINOPHEN 325 MG TAB PO ONE; +diphenhydrAMINE 25 MG CAP PO SCH
== END 2019-03-22 15:51 | disposition home or self-care (01) ==
LOC: M INFU 07:18
PROVIDERS: ATTEND Internal Medicine Hematology
DX: D57.20 Sickle-cell/Hb-C disease without crisis (principal); Z88.5 Allergy status to narcotic agent
CPT/HCPCS: 36430; P9016

== ENCOUNTER → 2019-03-31 | Outpatient (REF) | payer OTHER ==
[~2019-03-31] MED LIST changes: +ACET1TAB55 PO; -ACETAMINOPHEN 325 MG TAB PO ONE; -diphenhydrAMINE 25 MG CAP PO SCH
[2019-03-31 18:59] LABS: ALBUMIN 3.7 GM/DL (3.2-5.2); ALT/SGPT 32 U/L (12-78); BLOOD UREA NITROGEN 12 MG/DL (7-18); C REACTIVE PROTEIN QUANTITATIV 2.63 MG/DL (0.00-0.30); CALCIUM LEVEL 8.9 MG/DL (8.8-10.2); CARBON DIOXIDE LEVEL 30 MEQ/L (21-32); CHLORIDE LEVEL 104 MEQ/L (98-107); CPK CREATINE PHOSPHOKINASE 626 U/L (39-308); CREATININE FOR GFR 0.69 MG/DL (0.70-1.30); GLOMERULAR FILTRATION RATE > 60.0 (>49); GLUCOSE, FASTING 87 MG/DL (70-100); POTASSIUM SERUM 3.9 MEQ/L (3.5-5.1); SODIUM LEVEL 141 MEQ/L (136-145); TOTAL PROTEIN 7.6 GM/DL (6.4-8.2)
[2019-03-31 19:00] LABS: ERYTHROCYTE SEDIMENTATION RATE 17 mm/hr (0-20)
[2019-03-31 19:02] LABS: BASO # 0.1 10^3/uL (0.0-0.2); BASO % 0.7 % (0.0-1.0); EOS # 0.9 10^3/uL (0.0-0.5); EOS % 9.3 % (0.0-3.0); HEMATOCRIT 32.5 % (42.0-52.0); HEMOGLOBIN 11.3 g/dl (13.5-17.5); LYMPH # 2.6 10^3/uL (1.5-5.0); LYMPH % 26.3 % (24.0-44.0); MEAN CORPUSCULAR HEMOGLOBIN 28.2 pg (27.0-33.0); MEAN CORPUSCULAR HGB CONC 34.8 g/dl (32.0-36.5); MONO # 0.8 10^3/uL (0.0-0.8); MONO % 8.5 % (0.0-5.0); NEUTROPHILS # 5.3 10^3/uL (1.5-8.5); NEUTROPHILS % 54.9 % (36.0-66.0); RED BLOOD COUNT 4.01 10^6/uL (4.30-6.10); WHITE BLOOD COUNT 9.7 10^3/uL (4.0-10.0)
[2019-03-31 19:33] LABS: PLATELET COUNT, AUTOMATED 85 10^3/uL (150-450)
== END ==
LOC: M SHH 18:16
PROVIDERS: ATTEND Nurse Practitioner
DX: Z79.2 Long term (current) use of antibiotics (principal)

== ENCOUNTER 2019-04-01 20:27 | Emergency (ER) | payer OTHER ==
[~2019-04-01] VITALS: Ht 203.2 cm; Wt 84.1 kg
[~2019-04-01 20:27] MED LIST changes: -ACET1TAB55 PO
[2019-04-01] MEDS ORDERED: OXYC-517 PO (20:38)
[2019-04-01] MEDS ORDERED: ACET1TAB55 PO (20:38)
[2019-04-01] MEDS ORDERED: fentaNYL 100 MCG/2 ML INJECTION (J3010) IV ONE (21:15)
[2019-04-01] MEDS ORDERED: SODIUM CHLORIDE 0.9% INJ 10 ML SYR IV PRN (21:15)
[2019-04-01 22:06] LABS: BASO # 0.1 10^3/uL (0.0-0.2); BASO % 0.8 % (0.0-1.0); EOS # 1.1 10^3/uL (0.0-0.5); EOS % 9.3 % (0.0-3.0); HEMATOCRIT 31.9 % (42.0-52.0); HEMOGLOBIN 11.1 g/dl (13.5-17.5); LYMPH # 3.5 10^3/uL (1.5-5.0); LYMPH % 29.7 % (24.0-44.0); MEAN CORPUSCULAR HEMOGLOBIN 28.1 pg (27.0-33.0); MEAN CORPUSCULAR HGB CONC 34.8 g/dl (32.0-36.5); MEAN CORPUSCULAR VOLUME 80.8 fl (80.0-96.0); MONO # 1.2 10^3/uL (0.0-0.8); MONO % 9.8 % (0.0-5.0); NEUTROPHILS % 50.1 % (36.0-66.0); PLATELET COUNT, AUTOMATED 152 10^3/uL (150-450); RED BLOOD COUNT 3.95 10^6/uL (4.30-6.10); WHITE BLOOD COUNT 11.9 10^3/uL (4.0-10.0)
[2019-04-01 22:17] LABS: BLOOD UREA NITROGEN 13 MG/DL (7-18); C REACTIVE PROTEIN QUANTITATIV 2.15 MG/DL (0.00-0.30); CARBON DIOXIDE LEVEL 29 MEQ/L (21-32); CHLORIDE LEVEL 106 MEQ/L (98-107); CREATININE FOR GFR 0.84 MG/DL (0.70-1.30); GLOMERULAR FILTRATION RATE > 60.0 (>49); GLUCOSE, FASTING 90 MG/DL (70-100); POTASSIUM SERUM 3.9 MEQ/L (3.5-5.1); SODIUM LEVEL 140 MEQ/L (136-145)
[2019-04-01 22:29] LABS: ERYTHROCYTE SEDIMENTATION RATE 22 mm/hr (0-20)
[2019-04-01] MEDS ORDERED: MORPHINE 4 MG/ML 1ML VIAL/SYRINGE (J2270) IV ONE (23:00)
[2019-04-02] MEDS ORDERED: PERC5TAB12 PO (00:14)
[2019-04-02] MEDS ORDERED: MORPHINE 4 MG/ML 1ML VIAL/SYRINGE (J2270) IV ONE (00:15)
[2019-04-02 00:23] VITALS: BP 158/80
[2019-04-02] MEDS ORDERED: SODIUM CHLORIDE 0.9% INJ 10 ML SYR IV SCH (06:00)
== END 2019-04-02 00:34 | disposition home or self-care (01) ==
LOC: M ED 20:27
DX: G89.18 Other acute postprocedural pain (principal); M25.512 Pain in left shoulder; D57.1 Sickle-cell disease without crisis; Z86.19 Personal history of other infectious and parasitic diseases; Z88.5 Allergy status to narcotic agent; Z88.6 Allergy status to analgesic agent; Z79.02 Long term (current) use of antithrombotics/antiplatelets; Z79.83 Long term (current) use of bisphosphonates; Z79.899 Other long term (current) drug therapy
CPT/HCPCS: 80048; 81001; 83605; 85025; 85652; 86140; 87040; 94760; 96374; 96375; 99284; J2270; J3010

== ENCOUNTER → 2019-04-07 | Outpatient (REF) | payer OTHER ==
[~2019-04-07] MED LIST changes: +ACET1TAB55 PO
[2019-04-07 12:54] LABS: BASO # 0.1 10^3/uL (0.0-0.2); BASO % 1.3 % (0.0-1.0); EOS % 10.7 % (0.0-3.0); HEMOGLOBIN 12.1 g/dl (13.5-17.5); LYMPH # 2.5 10^3/uL (1.5-5.0); LYMPH % 26.5 % (24.0-44.0); MEAN CORPUSCULAR HEMOGLOBIN 28.1 pg (27.0-33.0); MEAN CORPUSCULAR HGB CONC 34.6 g/dl (32.0-36.5); MEAN CORPUSCULAR VOLUME 81.4 fl (80.0-96.0); MONO # 0.6 10^3/uL (0.0-0.8); MONO % 6.4 % (0.0-5.0); NEUTROPHILS # 5.2 10^3/uL (1.5-8.5); NEUTROPHILS % 54.8 % (36.0-66.0); PLATELET COUNT, AUTOMATED 175 10^3/uL (150-450); WHITE BLOOD COUNT 9.4 10^3/uL (4.0-10.0)
[2019-04-07 12:58] LABS: ALBUMIN 3.8 GM/DL (3.2-5.2); ALT/SGPT 26 U/L (12-78); BILIRUBIN,TOTAL 0.8 MG/DL (0.2-1.0); BLOOD UREA NITROGEN 9 MG/DL (7-18); CALCIUM LEVEL 8.8 MG/DL (8.8-10.2); CARBON DIOXIDE LEVEL 29 MEQ/L (21-32); CHLORIDE LEVEL 108 MEQ/L (98-107); CPK CREATINE PHOSPHOKINASE 239 U/L (39-308); CREATININE FOR GFR 0.91 MG/DL (0.70-1.30); GLOMERULAR FILTRATION RATE > 60.0 (>49); GLUCOSE, FASTING 113 MG/DL (70-100); POTASSIUM SERUM 4.3 MEQ/L (3.5-5.1); SODIUM LEVEL 140 MEQ/L (136-145); TOTAL PROTEIN 7.6 GM/DL (6.4-8.2)
[2019-04-07 13:25] LABS: ERYTHROCYTE SEDIMENTATION RATE 9 mm/hr (0-20)
== END ==
LOC: M SHH 12:14
PROVIDERS: ATTEND Nurse Practitioner
DX: Z79.2 Long term (current) use of antibiotics (principal)

== ENCOUNTER → 2019-04-14 | Outpatient (REF) | payer OTHER ==
[2019-04-14 13:17] LABS: BASO # 0.1 10^3/uL (0.0-0.2); BASO % 1.4 % (0.0-1.0); EOS # 1.2 10^3/uL (0.0-0.5); EOS % 14.2 % (0.0-3.0); HEMATOCRIT 34.2 % (42.0-52.0); LYMPH # 2.6 10^3/uL (1.5-5.0); LYMPH % 29.8 % (24.0-44.0); MEAN CORPUSCULAR HGB CONC 35.1 g/dl (32.0-36.5); MEAN CORPUSCULAR VOLUME 79.7 fl (80.0-96.0); MONO # 0.4 10^3/uL (0.0-0.8); MONO % 4.9 % (0.0-5.0); NEUTROPHILS # 4.3 10^3/uL (1.5-8.5); NEUTROPHILS % 49.6 % (36.0-66.0); PLATELET COUNT, AUTOMATED 151 10^3/uL (150-450); RED BLOOD COUNT 4.29 10^6/uL (4.30-6.10); WHITE BLOOD COUNT 8.6 10^3/uL (4.0-10.0)
[2019-04-14 13:38] LABS: ALBUMIN 3.8 GM/DL (3.2-5.2); ALT/SGPT 27 U/L (12-78); BILIRUBIN,TOTAL 0.7 MG/DL (0.2-1.0); BLOOD UREA NITROGEN 13 MG/DL (7-18); C REACTIVE PROTEIN QUANTITATIV 0.54 MG/DL (0.00-0.30); CALCIUM LEVEL 8.7 MG/DL (8.8-10.2); CARBON DIOXIDE LEVEL 26 MEQ/L (21-32); CHLORIDE LEVEL 108 MEQ/L (98-107); CPK CREATINE PHOSPHOKINASE 142 U/L (39-308); CREATININE FOR GFR 0.96 MG/DL (0.70-1.30); GLOMERULAR FILTRATION RATE > 60.0 (>49); GLUCOSE, FASTING 146 MG/DL (70-100); SODIUM LEVEL 141 MEQ/L (136-145); TOTAL PROTEIN 7.3 GM/DL (6.4-8.2)
[2019-04-14 14:05] LABS: ERYTHROCYTE SEDIMENTATION RATE 10 mm/hr (0-20)
== END ==
LOC: M SHH 12:40
PROVIDERS: ATTEND Nurse Practitioner
DX: Z79.2 Long term (current) use of antibiotics (principal)

== ENCOUNTER → 2019-04-21 | Outpatient (REF) | payer OTHER ==
[2019-04-21 18:11] LABS: BASO # 0.1 10^3/uL (0.0-0.2); BASO % 1.2 % (0.0-1.0); EOS # 1.4 10^3/uL (0.0-0.5); EOS % 15.8 % (0.0-3.0); HEMATOCRIT 33.7 % (42.0-52.0); HEMOGLOBIN 11.9 g/dl (13.5-17.5); LYMPH # 2.9 10^3/uL (1.5-5.0); LYMPH % 34.3 % (24.0-44.0); MEAN CORPUSCULAR HEMOGLOBIN 28.2 pg (27.0-33.0); MEAN CORPUSCULAR HGB CONC 35.3 g/dl (32.0-36.5); MEAN CORPUSCULAR VOLUME 79.9 fl (80.0-96.0); MONO # 0.4 10^3/uL (0.0-0.8); MONO % 5.2 % (0.0-5.0); NEUTROPHILS # 3.7 10^3/uL (1.5-8.5); NEUTROPHILS % 43.3 % (36.0-66.0); PLATELET COUNT, AUTOMATED 103 10^3/uL (150-450); RED BLOOD COUNT 4.22 10^6/uL (4.30-6.10); WHITE BLOOD COUNT 8.5 10^3/uL (4.0-10.0)
[2019-04-21 18:50] LABS: ERYTHROCYTE SEDIMENTATION RATE 6 mm/hr (0-20)
[2019-04-21 22:43] LABS: ALBUMIN 3.7 GM/DL (3.2-5.2); ALT/SGPT 22 U/L (12-78); BILIRUBIN,TOTAL 0.7 MG/DL (0.2-1.0); BLOOD UREA NITROGEN 6 MG/DL (7-18); C REACTIVE PROTEIN QUANTITATIV 0.36 MG/DL (0.00-0.30); CALCIUM LEVEL 8.5 MG/DL (8.8-10.2); CARBON DIOXIDE LEVEL 28 MEQ/L (21-32); CHLORIDE LEVEL 108 MEQ/L (98-107); CPK CREATINE PHOSPHOKINASE 115 U/L (39-308); CREATININE FOR GFR 0.89 MG/DL (0.70-1.30); GLOMERULAR FILTRATION RATE > 60.0 (>49); GLUCOSE, FASTING 92 MG/DL (70-100); POTASSIUM SERUM 3.8 MEQ/L (3.5-5.1); SODIUM LEVEL 141 MEQ/L (136-145); TOTAL PROTEIN 7.5 GM/DL (6.4-8.2)
== END ==
LOC: M SHH 16:36
PROVIDERS: ATTEND Nurse Practitioner
DX: Z79.2 Long term (current) use of antibiotics (principal)

== ENCOUNTER 2019-04-27 00:44 | Emergency (ER) | payer OTHER ==
[~2019-04-27] VITALS: Ht 203.2 cm; Wt 81.8 kg
[2019-04-27 03:18] VITALS: BP 145/92
== END 2019-04-27 03:14 | disposition home or self-care (01) ==
LOC: M ED 00:44
DX: Z45.2 Encounter for adjustment and management of vascular access device (principal); T82.898A Other specified complication of vascular prosthetic devices, implants and grafts, initial encounter; Z88.5 Allergy status to narcotic agent; Z88.6 Allergy status to analgesic agent; Z79.82 Long term (current) use of aspirin; Z79.899 Other long term (current) drug therapy

== ENCOUNTER → 2019-04-28 | Outpatient (REF) | payer OTHER ==
[2019-04-28 13:19] LABS: BASO # 0.1 10^3/uL (0.0-0.2); BASO % 0.9 % (0.0-1.0); EOS # 0.7 10^3/uL (0.0-0.5); EOS % 10.3 % (0.0-3.0); HEMATOCRIT 36.4 % (42.0-52.0); HEMOGLOBIN 12.6 g/dl (13.5-17.5); LYMPH # 2.6 10^3/uL (1.5-5.0); LYMPH % 38.2 % (24.0-44.0); MEAN CORPUSCULAR HGB CONC 34.6 g/dl (32.0-36.5); MEAN CORPUSCULAR VOLUME 80.9 fl (80.0-96.0); MONO # 0.4 10^3/uL (0.0-0.8); MONO % 5.9 % (0.0-5.0); NEUTROPHILS % 44.6 % (36.0-66.0); WHITE BLOOD COUNT 6.7 10^3/uL (4.0-10.0)
[2019-04-28 13:20] LABS: PLATELET COUNT, AUTOMATED 88 10^3/uL (150-450)
[2019-04-28 13:40] LABS: ERYTHROCYTE SEDIMENTATION RATE 5 mm/hr (0-20)
[2019-04-28 13:47] LABS: ALBUMIN 3.9 GM/DL (3.2-5.2); ALT/SGPT 24 U/L (12-78); BILIRUBIN,TOTAL 0.7 MG/DL (0.2-1.0); BLOOD UREA NITROGEN 10 MG/DL (7-18); C REACTIVE PROTEIN QUANTITATIV < 0.30 MG/DL (0.00-0.30); CALCIUM LEVEL 8.7 MG/DL (8.8-10.2); CARBON DIOXIDE LEVEL 25 MEQ/L (21-32); CHLORIDE LEVEL 108 MEQ/L (98-107); CPK CREATINE PHOSPHOKINASE 109 U/L (39-308); CREATININE FOR GFR 0.99 MG/DL (0.70-1.30); GLOMERULAR FILTRATION RATE > 60.0 (>49); GLUCOSE, FASTING 124 MG/DL (70-100); SODIUM LEVEL 140 MEQ/L (136-145); TOTAL PROTEIN 8.1 GM/DL (6.4-8.2)
== END ==
LOC: M SHH 12:55
PROVIDERS: ATTEND Physician Assistant Medical
DX: Z96.612 Presence of left artificial shoulder joint (principal)

== ENCOUNTER → 2019-05-03 | Outpatient (REF) | payer OTHER ==
[2019-05-03 14:07] LABS: BASO # 0.1 10^3/uL (0.0-0.2); EOS # 0.5 10^3/uL (0.0-0.5); EOS % 6.4 % (0.0-3.0); HEMATOCRIT 34.8 % (42.0-52.0); HEMOGLOBIN 12.2 g/dl (13.5-17.5); LYMPH # 3.6 10^3/uL (1.5-5.0); LYMPH % 50.9 % (24.0-44.0); MEAN CORPUSCULAR HEMOGLOBIN 28.3 pg (27.0-33.0); MEAN CORPUSCULAR HGB CONC 35.1 g/dl (32.0-36.5); MEAN CORPUSCULAR VOLUME 80.7 fl (80.0-96.0); MONO # 0.5 10^3/uL (0.0-0.8); MONO % 7.1 % (0.0-5.0); NEUTROPHILS # 2.4 10^3/uL (1.5-8.5); NEUTROPHILS % 34.5 % (36.0-66.0); RED BLOOD COUNT 4.31 10^6/uL (4.30-6.10)
[2019-05-03 14:08] LABS: PLATELET COUNT, AUTOMATED 99 10^3/uL (150-450)
[2019-05-03 14:31] LABS: ERYTHROCYTE SEDIMENTATION RATE 7 mm/hr (0-20)
[2019-05-03 14:43] LABS: ALBUMIN 3.8 GM/DL (3.2-5.2); ALT/SGPT 22 U/L (12-78); BILIRUBIN,TOTAL 0.7 MG/DL (0.2-1.0); BLOOD UREA NITROGEN 8 MG/DL (7-18); C REACTIVE PROTEIN QUANTITATIV < 0.30 MG/DL (0.00-0.30); CALCIUM LEVEL 8.7 MG/DL (8.8-10.2); CARBON DIOXIDE LEVEL 26 MEQ/L (21-32); CHLORIDE LEVEL 106 MEQ/L (98-107); CPK CREATINE PHOSPHOKINASE 111 U/L (39-308); CREATININE FOR GFR 0.87 MG/DL (0.70-1.30); GLOMERULAR FILTRATION RATE > 60.0 (>49); GLUCOSE, FASTING 85 MG/DL (70-100); POTASSIUM SERUM 3.7 MEQ/L (3.5-5.1); SODIUM LEVEL 141 MEQ/L (136-145); TOTAL PROTEIN 7.6 GM/DL (6.4-8.2)
== END ==
LOC: M SHH 11:59
PROVIDERS: ATTEND Physician Assistant Medical
DX: Z96.612 Presence of left artificial shoulder joint (principal)

== ENCOUNTER → 2019-10-15 | Outpatient (CLI) | payer OTHER ==
[~2019-10-15] MED LIST changes: +AMLO25TA PO
--- NOTE | 2019-10-15 14:34 | REP ---
LEFT SHOULDER, THREE VIEWS: Three views left shoulder performed. There is metallic stacia and cement material in the proximal humerus. There is narrowing of the glenohumeral joint space. There is mild spurring and subchondral sclerosis of the glenoid. There is no acute fracture or dislocation. Electronically Signed by Pop Zamora MD 10/18/2019 09:56 P
== END ==
LOC: M ADAMS 11:28
PROVIDERS: ATTEND Physician Assistant
DX: M25.512 Pain in left shoulder (principal)

== ENCOUNTER → 2019-11-01 | Outpatient (REF) | payer OTHER ==
[2019-11-01 13:33] LABS: BASO # 0.1 10^3/uL (0.0-0.2); BASO % 0.9 % (0.0-1.0); EOS # 0.3 10^3/uL (0.0-0.5); EOS % 4.2 % (0.0-3.0); HEMATOCRIT 36.6 % (42.0-52.0); HEMOGLOBIN 12.9 g/dl (13.5-17.5); LYMPH % 40.3 % (24.0-44.0); MEAN CORPUSCULAR HEMOGLOBIN 27.4 pg (27.0-33.0); MEAN CORPUSCULAR HGB CONC 35.2 g/dl (32.0-36.5); MEAN CORPUSCULAR VOLUME 77.7 fl (80.0-96.0); MONO # 0.5 10^3/uL (0.0-0.8); MONO % 6.8 % (0.0-5.0); NEUTROPHILS # 3.6 10^3/uL (1.5-8.5); NEUTROPHILS % 47.7 % (36.0-66.0); PLATELET COUNT, AUTOMATED 106 10^3/uL (150-450); RED BLOOD COUNT 4.71 10^6/uL (4.30-6.10); WHITE BLOOD COUNT 7.5 10^3/uL (4.0-10.0)
[2019-11-01 13:38] LABS: BLOOD UREA NITROGEN 6 MG/DL (7-18); CALCIUM LEVEL 8.7 MG/DL (8.8-10.2); CARBON DIOXIDE LEVEL 29 MEQ/L (21-32); CHLORIDE LEVEL 109 MEQ/L (98-107); CREATININE FOR GFR 0.89 MG/DL (0.70-1.30); GLOMERULAR FILTRATION RATE > 60.0 (>49); GLUCOSE, FASTING 89 MG/DL (70-100); POTASSIUM SERUM 3.7 MEQ/L (3.5-5.1); SODIUM LEVEL 140 MEQ/L (136-145)
[2019-11-01 13:42] LABS: INR 1.19; PROTHROMBIN TIME 14.8 SECONDS (11.8-14.0)
== END ==
LOC: M SFHCLERA 11:31
PROVIDERS: ATTEND Family Medicine
DX: Z01.818 Encounter for other preprocedural examination (principal)

== ENCOUNTER 2019-11-10 09:05 | Outpatient (CLI) | payer OTHER ==
[2019-11-10] VITALS (9 sets, daily range): BP systolic 126–165; BP diastolic 67–83
[~2019-11-10] VITALS: Ht 203.2 cm; Wt 87.3 kg
[~2019-11-10 09:05] MED LIST changes: +ACETAMINOPHEN TAB 650MG DOSE (2X325MG) PO SCH; +diphenhydrAMINE 25MG CAP PO SCH
== END 2019-11-10 19:10 | disposition home or self-care (01) ==
LOC: M INFU 09:05
PROVIDERS: ATTEND Specialist
DX: D57.1 Sickle-cell disease without crisis (principal)
CPT/HCPCS: 36430; 86850; 86900; 86901; 86920; 99195; P9016

== ENCOUNTER 2019-11-21 21:51 | Emergency (ER) | payer OTHER ==
[~2019-11-21] VITALS: Ht 203.2 cm; Wt 88.6 kg
[~2019-11-21 21:51] MED LIST changes: -ACETAMINOPHEN TAB 650MG DOSE (2X325MG) PO SCH; -diphenhydrAMINE 25MG CAP PO SCH
[2019-11-21] MEDS ORDERED: TRAM50TA2 (22:22)
[2019-11-21] MEDS ORDERED: ELIQ2.5T (22:22)
[2019-11-22] MEDS ORDERED: MORPHINE 10 MG/ML 1ML VIAL (J2270) IM ONE (00:30)
[2019-11-22 01:01] LABS: BASO # 0.1 10^3/uL (0.0-0.2); BASO % 0.8 % (0.0-1.0); EOS # 0.5 10^3/uL (0.0-0.5); EOS % 4.6 % (0.0-3.0); HEMOGLOBIN 12.2 g/dl (13.5-17.5); LYMPH # 2.9 10^3/uL (1.5-5.0); LYMPH % 29.7 % (24.0-44.0); MEAN CORPUSCULAR HEMOGLOBIN 27.9 pg (27.0-33.0); MEAN CORPUSCULAR HGB CONC 34.9 g/dl (32.0-36.5); MEAN CORPUSCULAR VOLUME 79.9 fl (80.0-96.0); MONO # 0.8 10^3/uL (0.0-0.8); MONO % 7.8 % (0.0-5.0); NEUTROPHILS # 5.5 10^3/uL (1.5-8.5); PLATELET COUNT, AUTOMATED 167 10^3/uL (150-450); RED BLOOD COUNT 4.38 10^6/uL (4.30-6.10); WHITE BLOOD COUNT 9.7 10^3/uL (4.0-10.0)
[2019-11-22 01:49] VITALS: BP 131/79
== END 2019-11-22 01:52 | disposition home or self-care (01) ==
LOC: M ED 21:51
DX: L76.22 Postprocedural hemorrhage of skin and subcutaneous tissue following other procedure (principal); G89.18 Other acute postprocedural pain; D57.3 Sickle-cell trait; F17.200 Nicotine dependence, unspecified, uncomplicated

== ENCOUNTER → 2020-02-07 | Outpatient (REF) | payer OTHER ==
[~2020-02-07] MED LIST changes: +ELIQ2.5T; +TRAM50TA2
[2020-02-07 15:03] LABS: BASO # 0.1 10^3/uL (0.0-0.2); BASO % 0.7 % (0.0-1.0); EOS # 0.8 10^3/uL (0.0-0.5); EOS % 8.8 % (0.0-3.0); HEMATOCRIT 29.3 % (42.0-52.0); HEMOGLOBIN 10.4 g/dl (13.5-17.5); LYMPH # 2.3 10^3/uL (1.5-5.0); LYMPH % 23.9 % (24.0-44.0); MEAN CORPUSCULAR HEMOGLOBIN 27.8 pg (27.0-33.0); MEAN CORPUSCULAR HGB CONC 35.5 g/dl (32.0-36.5); MEAN CORPUSCULAR VOLUME 78.3 fl (80.0-96.0); MONO # 0.8 10^3/uL (0.0-0.8); NEUTROPHILS # 5.5 10^3/uL (1.5-8.5); NEUTROPHILS % 58.2 % (36.0-66.0); PLATELET COUNT, AUTOMATED 142 10^3/uL (150-450); RED BLOOD COUNT 3.74 10^6/uL (4.30-6.10); WHITE BLOOD COUNT 9.4 10^3/uL (4.0-10.0)
[2020-02-07 15:27] LABS: ERYTHROCYTE SEDIMENTATION RATE 21 mm/hr (0-20)
[2020-02-07 15:33] LABS: ALBUMIN 3.6 GM/DL (3.2-5.2); ALT/SGPT 15 U/L (12-78); BILIRUBIN,TOTAL 0.8 MG/DL (0.2-1.0); BLOOD UREA NITROGEN 10 MG/DL (7-18); C REACTIVE PROTEIN QUANTITATIV 1.76 MG/DL (0.00-0.30); CALCIUM LEVEL 8.7 MG/DL (8.8-10.2); CARBON DIOXIDE LEVEL 31 MEQ/L (21-32); CHLORIDE LEVEL 107 MEQ/L (98-107); CREATININE FOR GFR 0.81 MG/DL (0.70-1.30); GLOMERULAR FILTRATION RATE > 60.0 (>49); GLUCOSE, FASTING 99 MG/DL (70-100); POTASSIUM SERUM 3.6 MEQ/L (3.5-5.1); SODIUM LEVEL 140 MEQ/L (136-145); TOTAL PROTEIN 7.4 GM/DL (6.4-8.2)
== END ==
LOC: M SHH 14:49
PROVIDERS: ATTEND Physician Assistant
DX: T84.59XS Infection and inflammatory reaction due to other internal joint prosthesis, sequela (principal); Z96.619 Presence of unspecified artificial shoulder joint

== ENCOUNTER → 2020-02-14 | Outpatient (REF) | payer OTHER ==
[2020-02-14 14:38] LABS: BASO # 0.1 10^3/uL (0.0-0.2); BASO % 1.1 % (0.0-1.0); EOS # 0.5 10^3/uL (0.0-0.5); EOS % 8.4 % (0.0-3.0); HEMATOCRIT 33.4 % (42.0-52.0); HEMOGLOBIN 11.7 g/dl (13.5-17.5); LYMPH % 30.6 % (24.0-44.0); MEAN CORPUSCULAR HEMOGLOBIN 27.7 pg (27.0-33.0); MONO # 0.7 10^3/uL (0.0-0.8); MONO % 10.3 % (0.0-5.0); NEUTROPHILS # 3.2 10^3/uL (1.5-8.5); NEUTROPHILS % 49.4 % (36.0-66.0); PLATELET COUNT, AUTOMATED 176 10^3/uL (150-450); RED BLOOD COUNT 4.23 10^6/uL (4.30-6.10); WHITE BLOOD COUNT 6.4 10^3/uL (4.0-10.0)
[2020-02-14 15:06] LABS: ALBUMIN 3.7 GM/DL (3.2-5.2); ALT/SGPT 27 U/L (12-78); BILIRUBIN,TOTAL 0.5 MG/DL (0.2-1.0); BLOOD UREA NITROGEN 7 MG/DL (7-18); C REACTIVE PROTEIN QUANTITATIV 0.67 MG/DL (0.00-0.30); CALCIUM LEVEL 8.7 MG/DL (8.8-10.2); CARBON DIOXIDE LEVEL 28 MEQ/L (21-32); CHLORIDE LEVEL 109 MEQ/L (98-107); CREATININE FOR GFR 0.82 MG/DL (0.70-1.30); GLOMERULAR FILTRATION RATE > 60.0 (>49); GLUCOSE, FASTING 92 MG/DL (70-100); POTASSIUM SERUM 3.9 MEQ/L (3.5-5.1); SODIUM LEVEL 142 MEQ/L (136-145); TOTAL PROTEIN 7.5 GM/DL (6.4-8.2)
[2020-02-14 15:11] LABS: ERYTHROCYTE SEDIMENTATION RATE 9 mm/hr (0-20)
== END ==
LOC: M SHH 13:06
PROVIDERS: ATTEND Physician Assistant
DX: T84.59XS Infection and inflammatory reaction due to other internal joint prosthesis, sequela (principal); Z96.619 Presence of unspecified artificial shoulder joint

== ENCOUNTER → 2020-02-21 | Outpatient (REF) | payer OTHER ==
[2020-02-21 15:04] LABS: BASO % 0.6 % (0.0-1.0); EOS # 0.8 10^3/uL (0.0-0.5); EOS % 12.1 % (0.0-3.0); HEMATOCRIT 33.6 % (42.0-52.0); HEMOGLOBIN 11.8 g/dl (13.5-17.5); LYMPH % 31.3 % (24.0-44.0); MEAN CORPUSCULAR HEMOGLOBIN 27.1 pg (27.0-33.0); MEAN CORPUSCULAR HGB CONC 35.1 g/dl (32.0-36.5); MEAN CORPUSCULAR VOLUME 77.2 fl (80.0-96.0); MONO # 0.4 10^3/uL (0.0-0.8); NEUTROPHILS # 3.2 10^3/uL (1.5-8.5); NEUTROPHILS % 49.8 % (36.0-66.0); PLATELET COUNT, AUTOMATED 158 10^3/uL (150-450); RED BLOOD COUNT 4.35 10^6/uL (4.30-6.10); WHITE BLOOD COUNT 6.5 10^3/uL (4.0-10.0)
[2020-02-21 15:35] LABS: ERYTHROCYTE SEDIMENTATION RATE 7 mm/hr (0-20)
== END ==
LOC: M SHH 14:39
PROVIDERS: ATTEND Physician Assistant
DX: T84.59XS Infection and inflammatory reaction due to other internal joint prosthesis, sequela (principal); Z96.619 Presence of unspecified artificial shoulder joint

== ENCOUNTER → 2020-02-28 | Outpatient (REF) | payer OTHER ==
[2020-02-28 19:11] LABS: BASO # 0.1 10^3/uL (0.0-0.2); EOS # 0.4 10^3/uL (0.0-0.5); EOS % 6.9 % (0.0-3.0); HEMATOCRIT 33.8 % (42.0-52.0); MEAN CORPUSCULAR HEMOGLOBIN 27.3 pg (27.0-33.0); MEAN CORPUSCULAR HGB CONC 35.5 g/dl (32.0-36.5); MEAN CORPUSCULAR VOLUME 76.8 fl (80.0-96.0); MONO # 0.3 10^3/uL (0.0-0.8); MONO % 6.1 % (0.0-5.0); NEUTROPHILS # 2.5 10^3/uL (1.5-8.5); PLATELET COUNT, AUTOMATED 112 10^3/uL (150-450); WHITE BLOOD COUNT 5.2 10^3/uL (4.0-10.0)
[2020-02-28 19:31] LABS: ALBUMIN 3.7 GM/DL (3.2-5.2); ALT/SGPT 20 U/L (12-78); BILIRUBIN,TOTAL 0.6 MG/DL (0.2-1.0); BLOOD UREA NITROGEN 6 MG/DL (7-18); CALCIUM LEVEL 8.8 MG/DL (8.8-10.2); CARBON DIOXIDE LEVEL 29 MEQ/L (21-32); CHLORIDE LEVEL 108 MEQ/L (98-107); CREATININE FOR GFR 0.77 MG/DL (0.70-1.30); GLOMERULAR FILTRATION RATE > 60.0 (>49); GLUCOSE, FASTING 100 MG/DL (70-100); POTASSIUM SERUM 3.9 MEQ/L (3.5-5.1); SODIUM LEVEL 142 MEQ/L (136-145); TOTAL PROTEIN 7.5 GM/DL (6.4-8.2)
[2020-02-28 20:32] LABS: ERYTHROCYTE SEDIMENTATION RATE 5 mm/hr (0-20)
== END ==
LOC: M SHH 18:08 → M LAB REF 18:08
PROVIDERS: ATTEND Physician Assistant
DX: T84.59XS Infection and inflammatory reaction due to other internal joint prosthesis, sequela (principal); Z96.619 Presence of unspecified artificial shoulder joint

== ENCOUNTER → 2020-03-06 | Outpatient (REF) | payer OTHER ==
[2020-03-06 18:37] LABS: BASO # 0.1 10^3/uL (0.0-0.2); EOS # 0.1 10^3/uL (0.0-0.5); EOS % 2.7 % (0.0-3.0); HEMATOCRIT 35.3 % (42.0-52.0); HEMOGLOBIN 12.6 g/dl (13.5-17.5); LYMPH # 2.2 10^3/uL (1.5-5.0); LYMPH % 41.5 % (24.0-44.0); MEAN CORPUSCULAR HGB CONC 35.7 g/dl (32.0-36.5); MEAN CORPUSCULAR VOLUME 75.8 fl (80.0-96.0); MONO # 0.3 10^3/uL (0.0-0.8); MONO % 5.9 % (0.0-5.0); NEUTROPHILS # 2.6 10^3/uL (1.5-8.5); NEUTROPHILS % 48.9 % (36.0-66.0); PLATELET COUNT, AUTOMATED 108 10^3/uL (150-450); RED BLOOD COUNT 4.66 10^6/uL (4.30-6.10); WHITE BLOOD COUNT 5.3 10^3/uL (4.0-10.0)
[2020-03-06 19:05] LABS: ALBUMIN 3.9 GM/DL (3.2-5.2); ALT/SGPT 24 U/L (12-78); BILIRUBIN,TOTAL 0.7 MG/DL (0.2-1.0); BLOOD UREA NITROGEN 7 MG/DL (7-18); CALCIUM LEVEL 8.7 MG/DL (8.8-10.2); CARBON DIOXIDE LEVEL 29 MEQ/L (21-32); CHLORIDE LEVEL 107 MEQ/L (98-107); CREATININE FOR GFR 0.78 MG/DL (0.70-1.30); GLOMERULAR FILTRATION RATE > 60.0 (>49); GLUCOSE, FASTING 88 MG/DL (70-100); POTASSIUM SERUM 3.9 MEQ/L (3.5-5.1); SODIUM LEVEL 140 MEQ/L (136-145); TOTAL PROTEIN 7.8 GM/DL (6.4-8.2)
[2020-03-06 19:21] LABS: ERYTHROCYTE SEDIMENTATION RATE 4 mm/hr (0-20)
== END ==
LOC: M SHH 18:06
PROVIDERS: ATTEND Internal Medicine Infectious Disease
DX: T84.59XS Infection and inflammatory reaction due to other internal joint prosthesis, sequela (principal); Z96.619 Presence of unspecified artificial shoulder joint

== ENCOUNTER → 2020-04-13 | Outpatient (CLI) | payer MEDICARE, OTHER ==
--- NOTE | 2020-04-13 14:36 | REP ---
INDICATION: RIGHT ARM PAIN RO DVT. History of 2 prior PICC lines. Most recent was removed 1 month ago. COMPARISON: None. TECHNIQUE: Right upper extremity duplex venous ultrasound. FINDINGS: The right internal jugular, axillary, brachial, and cephalic veins are anechoic and compressible in the right upper extremity. Color flow imaging is homogeneous. Spectral Doppler interrogation is unremarkable. There is no evidence of right upper extremity deep venous thrombosis. There is echogenic material in a portion of the right basilic vein at the mid arm level. At the prior basilic vein insertion site, there is a hypoechoic tract from the overlying skin to the basilic vein. The basilic vein is not occluded. IMPRESSION: There is chronic appearing nonocclusive echogenic material in a portion of the right basilic vein related to recent PICC line. Otherwise negative right upper extremity duplex venous ultrasound. No other evidence of right upper extremity venous thrombosis.. <Electronically signed by Mode Casarez > 04/13/20 1151
== END ==
LOC: M RAD 13:48
PROVIDERS: ATTEND Family Medicine
DX: M79.601 Pain in right arm (principal)
CPT/HCPCS: 93971; G0463

== ENCOUNTER → 2020-06-05 | Outpatient (CLI) | payer MEDICARE, OTHER ==
[2020-06-05 15:15] LABS: ALBUMIN 3.9 GM/DL (3.2-5.2); ALT/SGPT 16 U/L (12-78); BILIRUBIN,TOTAL 0.9 MG/DL (0.2-1.0); BLOOD UREA NITROGEN 6 MG/DL (7-18); CALCIUM LEVEL 9.1 MG/DL (8.8-10.2); CARBON DIOXIDE LEVEL 33 MEQ/L (21-32); CHLORIDE LEVEL 108 MEQ/L (98-107); CHOLESTEROL LEVEL 188 MG/DL (<200); CHOLESTEROL RISK RATIO 3.418 (<5); CREATININE FOR GFR 0.94 MG/DL (0.70-1.30); GLOMERULAR FILTRATION RATE > 60.0 (>49); GLUCOSE, FASTING 95 MG/DL (70-100); HDL CHOLESTEROL 55 MG/DL (>40); LDL CHOLESTEROL 103 MG/DL (<100); NON-HDL-C 133 MG/DL; POTASSIUM SERUM 3.8 MEQ/L (3.5-5.1); SODIUM LEVEL 142 MEQ/L (136-145); TOTAL PROTEIN 7.7 GM/DL (6.4-8.2); TRIGLYCERIDES LEVEL 149 MG/DL (<150)
== END ==
LOC: M LAB 14:29
PROVIDERS: ATTEND Nurse Practitioner Family
DX: E78.49 Other hyperlipidemia (principal)

== ENCOUNTER → 2020-10-02 | Outpatient (CLI) | payer MEDICARE, OTHER ==
--- NOTE | 2020-10-02 16:54 | REP ---
INDICATION: PAIN IN RIGHT SHOULDER COMPARISON: None. TECHNIQUE: Internal rotation, external rotation, and Y view. FINDINGS: Bulky osteophyte identified forming along the inferior margin of the distal acromion likely protruding into the subacromial space. Bulky osteophytes are also identified along the inferior margin of the humeral head/neck. Subchondral heterogeneity and cystic changes to the humeral head are identified as well as cortical irregularity, increased sclerosis and blunting to the glenoid rim. No acute fracture or dislocation. 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 <Electronically signed by Soy Nevarez > 10/02/20 [id number]
== END ==
LOC: M RAD 15:54
PROVIDERS: ATTEND Family Medicine
DX: M25.511 Pain in right shoulder (principal)

== ENCOUNTER → 2020-11-16 | Outpatient (CLI) | payer MEDICARE, MEDICAID ==
[2020-11-16 14:32] LABS: BASO # 0.1 10^3/uL (0.0-0.2); BASO % 0.9 % (0.0-1.0); EOS # 0.2 10^3/uL (0.0-0.5); EOS % 3.4 % (0.0-3.0); HEMATOCRIT 38.2 % (42.0-52.0); HEMOGLOBIN 13.8 g/dl (13.5-17.5); LYMPH # 2.5 10^3/uL (1.5-5.0); LYMPH % 38.3 % (24.0-44.0); MEAN CORPUSCULAR HEMOGLOBIN 27.8 pg (27.0-33.0); MEAN CORPUSCULAR HGB CONC 36.1 g/dl (32.0-36.5); MONO # 0.5 10^3/uL (0.0-0.8); MONO % 7.3 % (2.0-8.0); NEUTROPHILS # 3.2 10^3/uL (1.5-8.5); NEUTROPHILS % 49.9 % (36.0-66.0); PLATELET COUNT, AUTOMATED 127 10^3/uL (150-450); RED BLOOD COUNT 4.96 10^6/uL (4.30-6.10); WHITE BLOOD COUNT 6.5 10^3/uL (4.0-10.0)
[2020-11-16 14:36] LABS: INR 1.03; PROTHROMBIN TIME 13.7 SECONDS (12.5-14.3)
[2020-11-16 14:37] LABS: PARTIAL THROMBOPLASTIN TIME 29.8 SECONDS (24.2-38.5)
[2020-11-16 14:48] LABS: BLOOD UREA NITROGEN 8 MG/DL (7-18); CALCIUM LEVEL 9.1 MG/DL (8.8-10.2); CARBON DIOXIDE LEVEL 29 MEQ/L (21-32); CHLORIDE LEVEL 106 MEQ/L (98-107); CREATININE FOR GFR 0.88 MG/DL (0.70-1.30); GLOMERULAR FILTRATION RATE > 60.0 (>49); GLUCOSE, FASTING 86 MG/DL (70-100); SODIUM LEVEL 142 MEQ/L (136-145)
== END ==
LOC: M LAB 13:07
PROVIDERS: ATTEND Student in an Organized Health Care Education/Training Program
DX: Z01.818 Encounter for other preprocedural examination (principal)

== ENCOUNTER → 2021-02-14 | Outpatient (REF) | payer OTHER, MEDICAID | LOC: M SFHCLERA 15:27 | PROVIDERS: ATTEND Student in an Organized Health Care Education/Training Program | DX: R05.9 Cough, unspecified (principal) ==

== ENCOUNTER → 2021-03-01 | Outpatient (CLI) | payer OTHER, MEDICAID ==
[2021-03-01 14:48] LABS: BASO # 0.1 10^3/uL (0.0-0.2); BASO % 0.9 % (0.0-1.0); EOS # 0.3 10^3/uL (0.0-0.5); EOS % 3.7 % (0.0-3.0); HEMOGLOBIN 13.7 g/dl (13.5-17.5); LYMPH # 2.7 10^3/uL (1.5-5.0); LYMPH % 36.2 % (24.0-44.0); MEAN CORPUSCULAR HEMOGLOBIN 27.7 pg (27.0-33.0); MEAN CORPUSCULAR HGB CONC 36.1 g/dl (32.0-36.5); MEAN CORPUSCULAR VOLUME 76.9 fl (80.0-96.0); MONO # 0.6 10^3/uL (0.0-0.8); MONO % 8.1 % (2.0-8.0); NEUTROPHILS # 3.8 10^3/uL (1.5-8.5); PLATELET COUNT, AUTOMATED 129 10^3/uL (150-450); RED BLOOD COUNT 4.94 10^6/uL (4.30-6.10); WHITE BLOOD COUNT 7.5 10^3/uL (4.0-10.0)
[2021-03-01 15:15] LABS: BLOOD UREA NITROGEN 7 MG/DL (7-18); CALCIUM LEVEL 8.6 MG/DL (8.8-10.2); CARBON DIOXIDE LEVEL 32 MEQ/L (21-32); CHLORIDE LEVEL 107 MEQ/L (98-107); CREATININE FOR GFR 0.93 MG/DL (0.70-1.30); GLOMERULAR FILTRATION RATE > 60.0 (>49); GLUCOSE, FASTING 86 MG/DL (70-100); POTASSIUM SERUM 4.4 MEQ/L (3.5-5.1); SODIUM LEVEL 141 MEQ/L (136-145)
--- NOTE | 2021-03-01 16:20 | REP ---
INDICATION: COUGH, UNSPECIFIED. COMPARISON: 11/16/2020 TECHNIQUE: PA and lateral FINDINGS: There is cardiomegaly status quo. Lung ledezma are stable. There is hilar fullness on the right status quo. There is no change in the osseous structures. IMPRESSION: No significant change from 11/16/2020. Hilar adenopathy cannot be ruled out. Consider contrast-enhanced chest CT. <Electronically signed by Marek Iniguez > 03/01/21 9327
== END ==
LOC: M LAB 13:12
PROVIDERS: ATTEND Student in an Organized Health Care Education/Training Program
DX: R05.9 Cough, unspecified (principal)

== ENCOUNTER → 2021-06-11 | Outpatient (CLI) | payer MEDICARE, MEDICAID ==
[2021-06-11 13:54] LABS: HEMATOCRIT 31.7 % (42.0-52.0); HEMOGLOBIN 11.2 g/dl (13.5-17.5); MEAN CORPUSCULAR HEMOGLOBIN 27.1 pg (27.0-33.0); MEAN CORPUSCULAR HGB CONC 35.3 g/dl (32.0-36.5); MEAN CORPUSCULAR VOLUME 76.8 fl (80.0-96.0); PLATELET COUNT, AUTOMATED 247 10^3/uL (150-450); RED BLOOD COUNT 4.13 10^6/uL (4.30-6.10); WHITE BLOOD COUNT 8.8 10^3/uL (4.0-10.0)
[2021-06-11 14:05] LABS: INR 1.08; PROTHROMBIN TIME 14.4 SECONDS (12.7-14.5)
[2021-06-11 14:06] LABS: PARTIAL THROMBOPLASTIN TIME 32.4 SECONDS (25.9-37.0)
[2021-06-11 14:25] LABS: BLOOD UREA NITROGEN 8 MG/DL (7-18); CALCIUM LEVEL 8.5 MG/DL (8.8-10.2); CARBON DIOXIDE LEVEL 31 MEQ/L (21-32); CHLORIDE LEVEL 109 MEQ/L (98-107); CREATININE FOR GFR 0.83 MG/DL (0.70-1.30); FREE T4 0.89 NG/DL (0.76-1.46); GLOMERULAR FILTRATION RATE > 60.0 (>49); GLUCOSE, FASTING 88 MG/DL (70-100); POTASSIUM SERUM 3.6 MEQ/L (3.5-5.1); SODIUM LEVEL 143 MEQ/L (136-145)
[2021-06-11 14:27] LABS: ATYPICAL LYMPH 6 % (0-5); BASOPHILS 1 % (0-1); EOSINOPHILS 1 % (0-3); GIANT PLATELETS 1+; LYMPHOCYTES 27 % (16-44); MONOCYTES 5 % (0-5); NEUTROPHILS 60 % (28-66); PLATELET ESTIMATE NORMAL (NORMAL)
[2021-06-11 14:28] LABS: TARGET CELLS 4+
[2021-06-11 14:29] LABS: MICROCYTOSIS 1+
[2021-06-11 14:31] LABS: SICKLE CELLS 2+
== END ==
LOC: M LAB 12:57
PROVIDERS: ATTEND Student in an Organized Health Care Education/Training Program
DX: Z01.818 Encounter for other preprocedural examination (principal); E04.9 Nontoxic goiter, unspecified

== ENCOUNTER → 2021-08-28 | Outpatient (CLI) | payer MEDICARE ==
[2021-08-28 10:15] LABS: BASO # 0.1 10^3/uL (0.0-0.2); BASO % 0.7 % (0.0-1.0); EOS # 0.3 10^3/uL (0.0-0.5); EOS % 2.8 % (0.0-3.0); HEMOGLOBIN 14.1 g/dl (13.5-17.5); LYMPH # 2.9 10^3/uL (1.5-5.0); LYMPH % 29.7 % (24.0-44.0); MEAN CORPUSCULAR HEMOGLOBIN 28.1 pg (27.0-33.0); MEAN CORPUSCULAR HGB CONC 36.2 g/dl (32.0-36.5); MEAN CORPUSCULAR VOLUME 77.7 fl (80.0-96.0); MONO # 0.7 10^3/uL (0.0-0.8); MONO % 7.4 % (2.0-8.0); NEUTROPHILS # 5.8 10^3/uL (1.5-8.5); NEUTROPHILS % 59.2 % (36.0-66.0); PLATELET COUNT, AUTOMATED 148 10^3/uL (150-450); RED BLOOD COUNT 5.02 10^6/uL (4.30-6.10); WHITE BLOOD COUNT 9.8 10^3/uL (4.0-10.0)
[2021-08-28 10:24] LABS: INR 1.02; PARTIAL THROMBOPLASTIN TIME 30.3 SECONDS (25.9-37.0); PROTHROMBIN TIME 13.8 SECONDS (12.7-14.5)
[2021-08-28 10:44] LABS: BLOOD UREA NITROGEN 9 MG/DL (7-18); CALCIUM LEVEL 9.2 MG/DL (8.8-10.2); CARBON DIOXIDE LEVEL 30 MEQ/L (21-32); CHLORIDE LEVEL 106 MEQ/L (98-107); CREATININE FOR GFR 0.94 MG/DL (0.70-1.30); GLOMERULAR FILTRATION RATE > 60.0 (>49); GLUCOSE, FASTING 101 MG/DL (70-100); SODIUM LEVEL 140 MEQ/L (136-145)
== END ==
LOC: M RAD 08:11
PROVIDERS: ATTEND Student in an Organized Health Care Education/Training Program
DX: Z01.818 Encounter for other preprocedural examination (principal)

== ENCOUNTER → 2021-09-05 | Outpatient (CLI) | payer MEDICARE | LOC: M WHC 14:07 | PROVIDERS: ATTEND Student in an Organized Health Care Education/Training Program | DX: E04.9 Nontoxic goiter, unspecified (principal) ==

== ENCOUNTER 2021-09-24 13:49 | Emergency (ER) | payer MEDICARE ==
[~2021-09-24] VITALS: Ht 203.2 cm; Wt 78.2 kg
[2021-09-24 13:50] VITALS: BP 123/78
[2021-09-24] MEDS ORDERED: DOCU100C16 (14:15)
[2021-09-24] MEDS ORDERED: TRAZ-252 (14:15)
[2021-09-24] MEDS ORDERED: ATOR1TAB19 (14:15)
[2021-09-24] MEDS ORDERED: CEPH500C (14:15)
[2021-09-24] MEDS ORDERED: OXYC10TA3 (14:15)
[2021-09-24] MEDS ORDERED: NALO4SPR (14:15)
[2021-09-24] MEDS ORDERED: GABA-1171 (14:15)
[2021-09-24] MEDS ORDERED: AMLO1TAB24 (14:15)
[2021-09-24] MEDS ORDERED: ASPI-226 (14:15)
== END 2021-09-24 17:08 | disposition left against medical advice (07) ==
LOC: M ED 13:49
DX: Z53.21 Procedure and treatment not carried out due to patient leaving prior to being seen by health care provider (principal)

== ENCOUNTER 2021-09-29 19:12 | Emergency (ER) | payer MEDICARE ==
[~2021-09-29] VITALS: Ht 203.2 cm; Wt 86.4 kg
[~2021-09-29 19:12] MED LIST changes: +AMLO1TAB24; +ASPI-226; +ATOR1TAB19; +CEPH500C; +DOCU100C16; +GABA-1171; +NALO4SPR; +OXYC10TA3; +TRAZ-252
[2021-09-29] MEDS ORDERED: ONDANSETRON 4MG/2ML VIAL IV ONE (20:30)
[2021-09-29] MEDS: MORPHINE 4 MG/ML 1ML VIAL/SYRINGE IV PRN ×2 (20:54→21:57)
[2021-09-29 21:06] LABS: BASO # 0.1 10^3/uL (0.0-0.2); BASO % 0.8 % (0.0-1.0); EOS # 0.6 10^3/uL (0.0-0.5); EOS % 5.7 % (0.0-3.0); HEMATOCRIT 36.1 % (42.0-52.0); HEMOGLOBIN 13.1 g/dl (13.5-17.5); LYMPH # 3.7 10^3/uL (1.5-5.0); MEAN CORPUSCULAR HEMOGLOBIN 28.1 pg (27.0-33.0); MEAN CORPUSCULAR HGB CONC 36.3 g/dl (32.0-36.5); MEAN CORPUSCULAR VOLUME 77.5 fl (80.0-96.0); MONO # 0.8 10^3/uL (0.0-0.8); NEUTROPHILS # 4.6 10^3/uL (1.5-8.5); NEUTROPHILS % 47.3 % (36.0-66.0); PLATELET COUNT, AUTOMATED 194 10^3/uL (150-450); RED BLOOD COUNT 4.66 10^6/uL (4.30-6.10); WHITE BLOOD COUNT 9.8 10^3/uL (4.0-10.0)
[2021-09-29 21:17] LABS: INR 1.06; PROTHROMBIN TIME 14.2 SECONDS (12.7-14.5)
[2021-09-29 21:18] LABS: PARTIAL THROMBOPLASTIN TIME 30.6 SECONDS (25.9-37.0)
[2021-09-29] MEDS ORDERED: NS 1,000 ML IV ONE (21:20)
[2021-09-29 21:32] LABS: BLOOD UREA NITROGEN 7 MG/DL (7-18); CALCIUM LEVEL 8.6 MG/DL (8.8-10.2); CARBON DIOXIDE LEVEL 30 MEQ/L (21-32); CHLORIDE LEVEL 107 MEQ/L (98-107); CREATININE FOR GFR 0.88 MG/DL (0.70-1.30); GLOMERULAR FILTRATION RATE > 60.0 (>49); GLUCOSE, FASTING 96 MG/DL (70-100); SODIUM LEVEL 143 MEQ/L (136-145)
[2021-09-29 22:23] LABS: RSV AMPLIFICATION NEGATIVE (NEGATIVE)
[2021-09-30 00:02] VITALS: BP 148/75
== END 2021-09-30 00:08 | disposition short-term general hospital (02) ==
LOC: M ED 19:12
DX: L76.22 Postprocedural hemorrhage of skin and subcutaneous tissue following other procedure (principal); I10 Essential (primary) hypertension; E78.5 Hyperlipidemia, unspecified; J44.9 Chronic obstructive pulmonary disease, unspecified; I26.99 Other pulmonary embolism without acute cor pulmonale; D57.1 Sickle-cell disease without crisis; Z88.6 Allergy status to analgesic agent; Z79.899 Other long term (current) drug therapy; Z96.698 Presence of other orthopedic joint implants
CPT/HCPCS: 73020; 76882; 80048; 85025; 85610; 85730; 87631; 96361; 96374; 96375; 99284; J2270; J2405

== ENCOUNTER → 2021-10-01 | Outpatient (CLI) | payer MEDICARE | LOC: M RAD 14:09 | PROVIDERS: ATTEND Nurse Practitioner Family | DX: M25.512 Pain in left shoulder (principal); R09.89 Other specified symptoms and signs involving the circulatory and respiratory systems ==

== ENCOUNTER → 2022-01-21 | Outpatient (CLI) | payer MEDICARE ==
[2022-01-21 13:16] LABS: HEMATOCRIT 31.7 % (42.0-52.0); HEMOGLOBIN 11.5 g/dl (13.5-17.5); MEAN CORPUSCULAR HEMOGLOBIN 28.3 pg (27.0-33.0); MEAN CORPUSCULAR HGB CONC 36.3 g/dl (32.0-36.5); MEAN CORPUSCULAR VOLUME 77.9 fl (80.0-96.0); PLATELET COUNT, AUTOMATED 126 10^3/uL (150-450); RED BLOOD COUNT 4.07 10^6/uL (4.30-6.10); WHITE BLOOD COUNT 7.8 10^3/uL (4.0-10.0)
[2022-01-21 13:26] LABS: INR 1.12; PROTHROMBIN TIME 14.9 SECONDS (12.7-14.5)
[2022-01-21 13:27] LABS: PARTIAL THROMBOPLASTIN TIME 30.8 SECONDS (25.9-37.0)
[2022-01-21 13:42] LABS: ATYPICAL LYMPH 9 % (0-5); BASOPHILS 1 % (0-1); EOSINOPHILS 4 % (0-3); LYMPHOCYTES 36 % (16-44); MONOCYTES 1 % (0-5); NEUTROPHILS 49 % (28-66)
[2022-01-21 13:43] LABS: GIANT PLATELETS 1+; PLATELET ESTIMATE DECREASED (NORMAL)
[2022-01-21 13:44] LABS: SICKLE CELLS 2+
[2022-01-21 13:47] LABS: MICROCYTOSIS 1+; TARGET CELLS 3+
[2022-01-21 15:25] LABS: BLOOD UREA NITROGEN 6 MG/DL (7-18); CALCIUM LEVEL 8.6 MG/DL (8.8-10.2); CARBON DIOXIDE LEVEL 29 MEQ/L (21-32); CHLORIDE LEVEL 110 MEQ/L (98-107); CREATININE FOR GFR 0.91 MG/DL (0.70-1.30); GLOMERULAR FILTRATION RATE > 60.0 (>49); GLUCOSE, FASTING 89 MG/DL (70-100); POTASSIUM SERUM 3.7 MEQ/L (3.5-5.1); SODIUM LEVEL 142 MEQ/L (136-145)
== END ==
LOC: M LAB 12:27
PROVIDERS: ATTEND Student in an Organized Health Care Education/Training Program
DX: Z01.818 Encounter for other preprocedural examination (principal)

== ENCOUNTER 2022-02-12 12:53 | Emergency (ER) | payer MEDICARE ==
[2022-02-12] MEDS ORDERED: SODIUM CHLORIDE 0.9% INJ 10 ML SYR IV PRN (13:35)
[2022-02-12] MEDS ORDERED: oxyCODONE 5MG TAB PO ONE (14:00)
[2022-02-12] MEDS ORDERED: PERCOCET 5MG/325MG TAB PO ONE (14:00)
[2022-02-12] MEDS ORDERED: ELIQ2.5T PO ×2 (14:09→14:11)
[2022-02-12] MEDS ORDERED: STIO1AER (14:11)
[2022-02-12] MEDS ORDERED: ALBU8.5H (14:11)
[2022-02-12 14:12] LABS: HEMATOCRIT 30.3 % (42.0-52.0); HEMOGLOBIN 11.1 g/dl (13.5-17.5); MEAN CORPUSCULAR HEMOGLOBIN 28.7 pg (27.0-33.0); MEAN CORPUSCULAR VOLUME 78.3 fl (80.0-96.0); PLATELET COUNT, AUTOMATED 213 10^3/uL (150-450); RED BLOOD COUNT 3.87 10^6/uL (4.30-6.10); WHITE BLOOD COUNT 7.7 10^3/uL (4.0-10.0)
[2022-02-12 14:14] LABS: MEAN CORPUSCULAR HGB CONC 36.6 g/dl (32.0-36.5)
[2022-02-12 14:40] LABS: INR 1.07; PROTHROMBIN TIME 14.3 SECONDS (12.7-14.5)
[2022-02-12 14:41] LABS: PARTIAL THROMBOPLASTIN TIME 35.1 SECONDS (25.9-37.0)
[2022-02-12 15:17] VITALS: BP 158/72
[2022-02-12] MEDS ORDERED: SODIUM CHLORIDE 0.9% INJ 10 ML SYR IV SCH (18:00)
== END 2022-02-12 15:18 | disposition home or self-care (01) ==
LOC: EDBD 12:53 → M ED 12:53
DX: L76.22 Postprocedural hemorrhage of skin and subcutaneous tissue following other procedure (principal); F17.200 Nicotine dependence, unspecified, uncomplicated; Z79.01 Long term (current) use of anticoagulants; Z86.718 Personal history of other venous thrombosis and embolism; Z88.6 Allergy status to analgesic agent; Z88.5 Allergy status to narcotic agent; Z79.51 Long term (current) use of inhaled steroids; Z79.899 Other long term (current) drug therapy

== ENCOUNTER → 2022-02-18 | Outpatient (REF) | payer MEDICARE ==
[~2022-02-18] MED LIST changes: +ALBU8.5H; +ELIQ2.5T PO; +STIO1AER
[2022-02-18 14:21] LABS: BASO # 0.1 10^3/uL (0.0-0.2); BASO % 0.8 % (0.0-1.0); EOS # 0.5 10^3/uL (0.0-0.5); EOS % 6.2 % (0.0-3.0); HEMATOCRIT 31.8 % (42.0-52.0); HEMOGLOBIN 11.5 g/dl (13.5-17.5); LYMPH # 2.1 10^3/uL (1.5-5.0); LYMPH % 26.5 % (24.0-44.0); MEAN CORPUSCULAR HEMOGLOBIN 28.8 pg (27.0-33.0); MEAN CORPUSCULAR HGB CONC 36.2 g/dl (32.0-36.5); MEAN CORPUSCULAR VOLUME 79.5 fl (80.0-96.0); MONO # 0.5 10^3/uL (0.0-0.8); MONO % 6.4 % (2.0-8.0); NEUTROPHILS # 4.7 10^3/uL (1.5-8.5); NEUTROPHILS % 59.8 % (36.0-66.0); PLATELET COUNT, AUTOMATED 176 10^3/uL (150-450); WHITE BLOOD COUNT 7.8 10^3/uL (4.0-10.0)
[2022-02-18 15:16] LABS: ERYTHROCYTE SEDIMENTATION RATE 13 mm/hr (0-20)
[2022-02-18 15:25] LABS: ALBUMIN 3.6 GM/DL (3.2-5.2); ALT/SGPT 18 U/L (12-78); BILIRUBIN,TOTAL 0.6 MG/DL (0.2-1.0); BLOOD UREA NITROGEN 6 MG/DL (7-18); C REACTIVE PROTEIN QUANTITATIV 1.25 MG/DL (0.00-0.30); CALCIUM LEVEL 8.7 MG/DL (8.8-10.2); CARBON DIOXIDE LEVEL 28 MEQ/L (21-32); CHLORIDE LEVEL 105 MEQ/L (98-107); CREATININE FOR GFR 0.91 MG/DL (0.70-1.30); GLOMERULAR FILTRATION RATE > 60.0 (>49); GLUCOSE, FASTING 107 MG/DL (70-100); POTASSIUM SERUM 4.2 MEQ/L (3.5-5.1); SODIUM LEVEL 139 MEQ/L (136-145); TOTAL PROTEIN 7.5 GM/DL (6.4-8.2)
== END ==
LOC: M SHH 13:49
DX: T84.59XS Infection and inflammatory reaction due to other internal joint prosthesis, sequela (principal); Z96.619 Presence of unspecified artificial shoulder joint

== ENCOUNTER → 2022-02-26 | Outpatient (REF) | payer MEDICARE ==
[2022-02-26 15:38] LABS: BASO # 0.1 10^3/uL (0.0-0.2); BASO % 1.2 % (0.0-1.0); EOS # 0.7 10^3/uL (0.0-0.5); EOS % 11.4 % (0.0-3.0); HEMATOCRIT 32.7 % (42.0-52.0); HEMOGLOBIN 11.4 g/dl (13.5-17.5); LYMPH # 1.8 10^3/uL (1.5-5.0); MEAN CORPUSCULAR HEMOGLOBIN 27.7 pg (27.0-33.0); MEAN CORPUSCULAR HGB CONC 34.9 g/dl (32.0-36.5); MEAN CORPUSCULAR VOLUME 79.6 fl (80.0-96.0); MONO # 0.5 10^3/uL (0.0-0.8); NEUTROPHILS # 2.7 10^3/uL (1.5-8.5); NEUTROPHILS % 47.2 % (36.0-66.0); PLATELET COUNT, AUTOMATED 154 10^3/uL (150-450); RED BLOOD COUNT 4.11 10^6/uL (4.30-6.10); WHITE BLOOD COUNT 5.8 10^3/uL (4.0-10.0)
[2022-02-26 16:18] LABS: ALBUMIN 3.5 GM/DL (3.2-5.2); ALT/SGPT 12 U/L (12-78); BILIRUBIN,TOTAL 0.7 MG/DL (0.2-1.0); BLOOD UREA NITROGEN 5 MG/DL (7-18); C REACTIVE PROTEIN QUANTITATIV 0.65 MG/DL (0.00-0.30); CALCIUM LEVEL 8.7 MG/DL (8.8-10.2); CARBON DIOXIDE LEVEL 30 MEQ/L (21-32); CHLORIDE LEVEL 104 MEQ/L (98-107); CREATININE FOR GFR 0.94 MG/DL (0.70-1.30); GLOMERULAR FILTRATION RATE > 60.0 (>49); GLUCOSE, FASTING 74 MG/DL (70-100); POTASSIUM SERUM 4.1 MEQ/L (3.5-5.1); SODIUM LEVEL 138 MEQ/L (136-145); TOTAL PROTEIN 7.3 GM/DL (6.4-8.2)
[2022-02-26 16:34] LABS: ERYTHROCYTE SEDIMENTATION RATE 15 mm/hr (0-20)
== END ==
LOC: M SHH 15:07
PROVIDERS: ATTEND Orthopaedic Surgery
DX: Z96.619 Presence of unspecified artificial shoulder joint (principal); T84.59XS Infection and inflammatory reaction due to other internal joint prosthesis, sequela

== ENCOUNTER → 2022-03-04 | Outpatient (REF) | payer MEDICARE ==
[2022-03-04 14:47] LABS: BASO # 0.1 10^3/uL (0.0-0.2); BASO % 1.2 % (0.0-1.0); EOS # 0.5 10^3/uL (0.0-0.5); EOS % 9.3 % (0.0-3.0); HEMATOCRIT 34.2 % (42.0-52.0); LYMPH % 34.8 % (24.0-44.0); MEAN CORPUSCULAR HEMOGLOBIN 27.4 pg (27.0-33.0); MEAN CORPUSCULAR HGB CONC 35.1 g/dl (32.0-36.5); MEAN CORPUSCULAR VOLUME 78.1 fl (80.0-96.0); MONO # 0.6 10^3/uL (0.0-0.8); MONO % 9.7 % (2.0-8.0); NEUTROPHILS # 2.6 10^3/uL (1.5-8.5); NEUTROPHILS % 44.8 % (36.0-66.0); PLATELET COUNT, AUTOMATED 146 10^3/uL (150-450); RED BLOOD COUNT 4.38 10^6/uL (4.30-6.10); WHITE BLOOD COUNT 5.8 10^3/uL (4.0-10.0)
[2022-03-04 15:09] LABS: ERYTHROCYTE SEDIMENTATION RATE 12 mm/hr (0-20)
[2022-03-04 15:17] LABS: ALBUMIN 3.7 GM/DL (3.2-5.2); ALT/SGPT 10 U/L (12-78); BILIRUBIN,TOTAL 0.6 MG/DL (0.2-1.0); BLOOD UREA NITROGEN 8 MG/DL (7-18); C REACTIVE PROTEIN QUANTITATIV 1.15 MG/DL (0.00-0.30); CALCIUM LEVEL 8.9 MG/DL (8.8-10.2); CARBON DIOXIDE LEVEL 29 MEQ/L (21-32); CHLORIDE LEVEL 104 MEQ/L (98-107); CREATININE FOR GFR 0.95 MG/DL (0.70-1.30); GLOMERULAR FILTRATION RATE > 60.0 (>49); GLUCOSE, FASTING 89 MG/DL (70-100); POTASSIUM SERUM 3.7 MEQ/L (3.5-5.1); SODIUM LEVEL 138 MEQ/L (136-145); TOTAL PROTEIN 7.6 GM/DL (6.4-8.2)
== END ==
LOC: M SHH 14:18
PROVIDERS: ATTEND Orthopaedic Surgery
DX: T84.59XS Infection and inflammatory reaction due to other internal joint prosthesis, sequela (principal); Z96.619 Presence of unspecified artificial shoulder joint

== ENCOUNTER → 2022-03-11 | Outpatient (REF) | payer MEDICARE ==
[2022-03-11 14:32] LABS: BASO # 0.1 10^3/uL (0.0-0.2); BASO % 1.1 % (0.0-1.0); EOS # 0.3 10^3/uL (0.0-0.5); EOS % 4.7 % (0.0-3.0); HEMATOCRIT 36.3 % (42.0-52.0); LYMPH # 2.3 10^3/uL (1.5-5.0); MEAN CORPUSCULAR HEMOGLOBIN 27.5 pg (27.0-33.0); MEAN CORPUSCULAR HGB CONC 35.8 g/dl (32.0-36.5); MEAN CORPUSCULAR VOLUME 76.9 fl (80.0-96.0); MONO # 0.6 10^3/uL (0.0-0.8); MONO % 8.7 % (2.0-8.0); NEUTROPHILS # 3.2 10^3/uL (1.5-8.5); NEUTROPHILS % 49.3 % (36.0-66.0); PLATELET COUNT, AUTOMATED 157 10^3/uL (150-450); RED BLOOD COUNT 4.72 10^6/uL (4.30-6.10); WHITE BLOOD COUNT 6.4 10^3/uL (4.0-10.0)
[2022-03-11 15:09] LABS: ALBUMIN 3.7 GM/DL (3.2-5.2); ALT/SGPT 14 U/L (12-78); BILIRUBIN,TOTAL 0.6 MG/DL (0.2-1.0); BLOOD UREA NITROGEN 5 MG/DL (7-18); CALCIUM LEVEL 8.6 MG/DL (8.8-10.2); CARBON DIOXIDE LEVEL 27 MEQ/L (21-32); CHLORIDE LEVEL 105 MEQ/L (98-107); CREATININE FOR GFR 0.94 MG/DL (0.70-1.30); GLOMERULAR FILTRATION RATE > 60.0 (>49); GLUCOSE, FASTING 98 MG/DL (70-100); POTASSIUM SERUM 3.7 MEQ/L (3.5-5.1); SODIUM LEVEL 138 MEQ/L (136-145); TOTAL PROTEIN 7.7 GM/DL (6.4-8.2)
[2022-03-11 15:10] LABS: ERYTHROCYTE SEDIMENTATION RATE 9 mm/hr (0-20)
== END ==
LOC: M SHH 13:19
PROVIDERS: ATTEND Orthopaedic Surgery
DX: T84.59XS Infection and inflammatory reaction due to other internal joint prosthesis, sequela (principal); Z96.619 Presence of unspecified artificial shoulder joint

== ENCOUNTER → 2022-07-16 | Outpatient (CLI) | payer MEDICARE ==
[2022-07-16 12:18] LABS: HEMATOCRIT 39.4 % (42.0-52.0); HEMOGLOBIN 13.9 g/dl (13.5-17.5); MEAN CORPUSCULAR HEMOGLOBIN 27.6 pg (27.0-33.0); MEAN CORPUSCULAR HGB CONC 35.3 g/dl (32.0-36.5); MEAN CORPUSCULAR VOLUME 78.3 fl (80.0-96.0); PLATELET COUNT, AUTOMATED 143 10^3/uL (150-450); RED BLOOD COUNT 5.03 10^6/uL (4.30-6.10); WHITE BLOOD COUNT 7.8 10^3/uL (4.0-10.0)
[2022-07-16 12:41] LABS: ATYPICAL LYMPH 5 % (0-5); BASOPHILS 1 % (0-1); EOSINOPHILS 1 % (0-3); GIANT PLATELETS 1+; LYMPHOCYTES 43 % (16-44); MONOCYTES 11 % (0-5); NEUTROPHILS 39 % (28-66)
[2022-07-16 12:42] LABS: MICROCYTOSIS 1+; PLATELET ESTIMATE NORMAL (NORMAL); TARGET CELLS 1+
[2022-07-16 12:44] LABS: TEAR DROP CELLS 1+
[2022-07-16 12:46] LABS: POIKILOCYTOSIS 1+; SICKLE CELLS 1+
[2022-07-16 12:49] LABS: ALKALINE PHOSPHATASE 67 U/L (46-116); ALT/SGPT 11 U/L (7.0-40); AST/SGOT 14 U/L (<34); BILIRUBIN,TOTAL 0.9 MG/DL (0.3-1.2); BLOOD UREA NITROGEN 9 MG/DL (9-23); CALCIUM LEVEL 8.8 MG/DL (8.3-10.6); CARBON DIOXIDE LEVEL 30 MMOL/L (20-31); CHLORIDE LEVEL 104 MMOL/L (98-107); CHOLESTEROL LEVEL 156 MG/DL (<200); CREATININE FOR GFR 0.77 MG/DL (0.70-1.30); GLOMERULAR FILTRATION RATE > 60.0 (>49); GLUCOSE, FASTING 80 MG/DL (74-106); LDL CHOLESTEROL 74.4 MG/DL (<100); NON-HDL-C 96 MG/DL; POTASSIUM SERUM 3.9 MMOL/L (3.5-5.1); SODIUM LEVEL 139 MMOL/L (136-145); TOTAL PROTEIN 7.7 G/DL (5.7-8.2); TRIGLYCERIDES LEVEL 108 MG/DL (<150)
== END ==
LOC: M RAD 11:12
PROVIDERS: ATTEND Student in an Organized Health Care Education/Training Program
DX: I10 Essential (primary) hypertension (principal); R05.9 Cough, unspecified

== ENCOUNTER 2022-07-25 13:08 | Emergency (ER) | payer MEDICARE ==
[~2022-07-25] VITALS: Ht 203.2 cm; Wt 76.5 kg
[2022-07-25 13:10] VITALS: BP 131/88
[2022-07-25] MEDS ORDERED: VARE0.5T (13:36)
== END 2022-07-25 14:37 | disposition left against medical advice (07) ==
LOC: M ED 13:08
DX: Z53.21 Procedure and treatment not carried out due to patient leaving prior to being seen by health care provider (principal)

== ENCOUNTER → 2022-08-14 | Outpatient (CLI) | payer MEDICARE ==
[~2022-08-14] MED LIST changes: +ISOVUE-370 76% 100ML VIAL As Ordered ONE; +VARE0.5T
== END ==
LOC: M RAD 07:53
PROVIDERS: ATTEND Student in an Organized Health Care Education/Training Program
DX: R91.1 Solitary pulmonary nodule (principal); E07.89 Other specified disorders of thyroid
CPT/HCPCS: 71260; Q9967

== ENCOUNTER → 2022-09-12 | Outpatient (CLI) | payer MEDICARE ==
[~2022-09-12] MED LIST changes: -ISOVUE-370 76% 100ML VIAL As Ordered ONE
== END ==
LOC: M WHC 13:37
PROVIDERS: ATTEND Student in an Organized Health Care Education/Training Program
DX: E04.1 Nontoxic single thyroid nodule (principal)

== ENCOUNTER → 2022-11-13 | Outpatient (CLI) | payer MEDICARE ==
[2022-11-13 18:47] LABS: BASO % 0.7 % (0.0-1.0); EOS # 0.3 10^3/uL (0.0-0.5); EOS % 5.9 % (0.0-3.0); HEMATOCRIT 35.6 % (42.0-52.0); HEMOGLOBIN 12.6 g/dl (13.5-17.5); LYMPH # 2.2 10^3/uL (1.5-5.0); LYMPH % 38.5 % (24.0-44.0); MEAN CORPUSCULAR HEMOGLOBIN 28.1 pg (27.0-33.0); MEAN CORPUSCULAR HGB CONC 35.4 g/dl (32.0-36.5); MEAN CORPUSCULAR VOLUME 79.3 fl (80.0-96.0); MONO # 0.5 10^3/uL (0.0-0.8); MONO % 8.8 % (2.0-8.0); NEUTROPHILS # 2.7 10^3/uL (1.5-8.5); NEUTROPHILS % 45.9 % (36.0-66.0); PLATELET COUNT, AUTOMATED 123 10^3/uL (150-450); RED BLOOD COUNT 4.49 10^6/uL (4.30-6.10); WHITE BLOOD COUNT 5.8 10^3/uL (4.0-10.0)
[2022-11-13 18:58] LABS: ERYTHROCYTE SEDIMENTATION RATE 3 mm/hr (0-20)
[2022-11-13 19:13] LABS: C REACTIVE PROTEIN QUANTITATIV < 0.40 MG/DL (<1.0)
[2022-11-13 19:15] LABS: BLOOD UREA NITROGEN 7 MG/DL (9-23); CREATININE FOR GFR 0.91 MG/DL (0.70-1.30); GLOMERULAR FILTRATION RATE > 60.0 (>49)
== END ==
LOC: M PLALAB 15:16
PROVIDERS: ATTEND Orthopaedic Surgery
DX: M41.9 Scoliosis, unspecified (principal); S22.010A Wedge compression fracture of first thoracic vertebra, initial encounter for closed fracture; X58.XXXA Exposure to other specified factors, initial encounter; Y92.9 Unspecified place or not applicable; Y93.9 Activity, unspecified; Y99.9 Unspecified external cause status

== ENCOUNTER → 2023-03-21 | Outpatient (CLI) | payer MEDICARE, MEDICAID ==
[~2023-03-21] MED LIST changes: +DICL100G10; -DICL1GEL3; +PROHANCE 279.3MG/ML 15ML VIAL ONE; +PROHANCE 279.3MG/ML 5ML VIAL ONE
== END ==
LOC: M PLAIMG 10:24
PROVIDERS: ATTEND Orthopaedic Surgery
DX: M46.96 Unspecified inflammatory spondylopathy, lumbar region (principal); M46.97 Unspecified inflammatory spondylopathy, lumbosacral region; M51.26 Other intervertebral disc displacement, lumbar region
CPT/HCPCS: 72158; A9576

== ENCOUNTER → 2023-07-09 | Outpatient (CLI) | payer MEDICARE, MEDICAID ==
[~2023-07-09] MED LIST changes: -PROHANCE 279.3MG/ML 15ML VIAL ONE; -PROHANCE 279.3MG/ML 5ML VIAL ONE
[2023-07-09 09:32] LABS: BASO # 0.1 10^3/uL (0.0-0.2); EOS # 0.4 10^3/uL (0.0-0.5); EOS % 5.1 % (0.0-3.0); HEMATOCRIT 36.5 % (42.0-52.0); HEMOGLOBIN 13.2 g/dl (13.5-17.5); LYMPH # 2.8 10^3/uL (1.5-5.0); LYMPH % 40.1 % (24.0-44.0); MEAN CORPUSCULAR HEMOGLOBIN 28.4 pg (27.0-33.0); MEAN CORPUSCULAR HGB CONC 36.2 g/dl (32.0-36.5); MEAN CORPUSCULAR VOLUME 78.7 fl (80.0-96.0); MONO # 0.6 10^3/uL (0.0-0.8); NEUTROPHILS # 3.2 10^3/uL (1.5-8.5); NEUTROPHILS % 44.7 % (36.0-66.0); PLATELET COUNT, AUTOMATED 107 10^3/uL (150-450); RED BLOOD COUNT 4.64 10^6/uL (4.30-6.10); WHITE BLOOD COUNT 7.1 10^3/uL (4.0-10.0)
[2023-07-09 09:51] LABS: PSA SCREENING 0.44 NG/ML (< 4.00)
[2023-07-09 09:55] LABS: ALBUMIN 3.5 G/DL (3.2-5.2); ALKALINE PHOSPHATASE 62 U/L (46-116); ALT/SGPT < 9 U/L (7.0-40); AST/SGOT 11 U/L (<34); BILIRUBIN,TOTAL 0.8 MG/DL (0.3-1.2); BLOOD UREA NITROGEN 9 MG/DL (9-23); CALCIUM LEVEL 8.6 MG/DL (8.3-10.6); CARBON DIOXIDE LEVEL 33 MMOL/L (20-31); CHLORIDE LEVEL 108 MMOL/L (98-107); CHOLESTEROL LEVEL 164 MG/DL (<200); CHOLESTEROL RISK RATIO 3.48 (<5); CREATININE FOR GFR 0.88 MG/DL (0.70-1.30); GLOMERULAR FILTRATION RATE > 60.0 (>49); GLUCOSE, FASTING 81 MG/DL (74-106); HDL CHOLESTEROL 47.1 MG/DL (>40); LDL CHOLESTEROL 97.9 MG/DL (<100); NON-HDL-C 116.9 MG/DL; SODIUM LEVEL 141 MMOL/L (136-145); TRIGLYCERIDES LEVEL 95 MG/DL (<150)
[2023-07-09 09:56] LABS: FREE T4 0.91 NG/DL (0.89-1.76); TOTAL 25(OH) VITAMIN D 11.1 NG/ML (20.0-100.0)
== END ==
LOC: M LAB 08:16
PROVIDERS: ATTEND Physician Assistant
DX: I10 Essential (primary) hypertension (principal); E78.2 Mixed hyperlipidemia; Z12.5 Encounter for screening for malignant neoplasm of prostate
CPT/HCPCS: 80053; 80061; 82306; 84439; 84443; 85025; G0103

== ENCOUNTER → 2024-01-23 | Outpatient (CLI) | payer MEDICARE, MEDICAID ==
[~2024-01-23] MED LIST changes: -NALO4SPR; +NALO4SPR3
[2024-01-23 12:16] LABS: HEMATOCRIT 35.8 % (42.0-52.0); HEMOGLOBIN 12.9 g/dl (13.5-17.5); MEAN CORPUSCULAR HEMOGLOBIN 28.4 pg (27.0-33.0); MEAN CORPUSCULAR VOLUME 78.7 fl (80.0-96.0); PLATELET COUNT, AUTOMATED 129 10^3/uL (150-450); RED BLOOD COUNT 4.55 10^6/uL (4.30-6.10); WHITE BLOOD COUNT 7.3 10^3/uL (4.0-10.0)
[2024-01-23 12:28] LABS: INR 1.13; PROTHROMBIN TIME 14.1 SECONDS (12.5-14.5)
[2024-01-23 12:32] LABS: BLOOD UREA NITROGEN 9 MG/DL (9-23); CALCIUM LEVEL 9.2 MG/DL (8.3-10.6); CARBON DIOXIDE LEVEL 32 MMOL/L (20-31); CHLORIDE LEVEL 108 MMOL/L (98-107); CREATININE FOR GFR 0.89 MG/DL (0.70-1.30); GLOMERULAR FILTRATION RATE > 60.0 (>49); GLUCOSE, FASTING 63 MG/DL (74-106); POTASSIUM SERUM 4.5 MMOL/L (3.5-5.1); SODIUM LEVEL 140 MMOL/L (136-145)
[2024-01-23 12:36] LABS: ATYPICAL LYMPH 6 % (0-5); EOSINOPHILS 4 % (0-3); GIANT PLATELETS 1+; HYPOCHROMASIA 1+; LYMPHOCYTES 28 % (16-44); MICROCYTOSIS 1+; MONOCYTES 11 % (0-5); NEUTROPHILS 51 % (28-66); PLATELET ESTIMATE NORMAL (NORMAL)
[2024-01-23 12:37] LABS: ANISOCYTOSIS 1+; SPHEROCYTES 1+
[2024-01-23 12:38] LABS: POIKILOCYTOSIS 2+; POLYCHROMASIA 1+; SICKLE CELLS 1+; TARGET CELLS 2+
[2024-01-23 12:39] LABS: SCHISTOCYTES 1+
== END ==
LOC: M RAD 11:12
PROVIDERS: ATTEND Family Medicine
DX: Z01.818 Encounter for other preprocedural examination (principal); J44.9 Chronic obstructive pulmonary disease, unspecified

== ENCOUNTER 2024-05-06 17:27 | Emergency (ER) | payer OTHER, MEDICARE, MEDICAID ==
[~2024-05-06] VITALS: Ht 203.2 cm; Wt 72.3 kg
[~2024-05-06 17:27] MED LIST changes: +NALO4SPR20; -NALO4SPR3
[2024-05-06] MEDS: PERCOCET 5MG/325MG TAB PO ONE (20:00)
[2024-05-06 20:35] LABS: BASO # 0.1 10^3/uL (0.0-0.2); BASO % 0.7 % (0.0-1.0); EOS # 0.2 10^3/uL (0.0-0.5); EOS % 2.3 % (0.0-3.0); HEMATOCRIT 40.4 % (42.0-52.0); HEMOGLOBIN 14.6 g/dl (13.5-17.5); LYMPH # 2.9 10^3/uL (1.5-5.0); LYMPH % 32.3 % (24.0-44.0); MEAN CORPUSCULAR HEMOGLOBIN 27.7 pg (27.0-33.0); MEAN CORPUSCULAR HGB CONC 36.1 g/dl (32.0-36.5); MEAN CORPUSCULAR VOLUME 76.7 fl (80.0-96.0); MONO # 0.7 10^3/uL (0.0-0.8); MONO % 7.8 % (2.0-8.0); NEUTROPHILS # 5.1 10^3/uL (1.5-8.5); NEUTROPHILS % 56.7 % (36.0-66.0); PLATELET COUNT, AUTOMATED 132 10^3/uL (150-450); RED BLOOD COUNT 5.27 10^6/uL (4.30-6.10); WHITE BLOOD COUNT 8.9 10^3/uL (4.0-10.0)
[2024-05-06 20:45] LABS: INR 1.06; PARTIAL THROMBOPLASTIN TIME 30.3 SECONDS (24.8-34.2); PROTHROMBIN TIME 14.1 SECONDS (12.5-14.5)
[2024-05-06] MEDS ORDERED: ISOVUE-370 76% 100ML VIAL As Ordered ONE (20:52)
[2024-05-06 21:12] LABS: CK-MB VALUE MASS 1.3 NG/ML (<3.6)
[2024-05-06 21:14] LABS: ALBUMIN 4.2 G/DL (3.2-5.2); BILIRUBIN,DIRECT 0.4 MG/DL (<0.4); BILIRUBIN,TOTAL 1.2 MG/DL (0.3-1.2)
[2024-05-06 21:26] LABS: MB/CK RELATIVE INDEX 0.9 (< OR =4)
[2024-05-06 22:33] LABS: CK-MB VALUE MASS 1.2 NG/ML (<3.6)
[2024-05-06 22:34] LABS: MB/CK RELATIVE INDEX 0.86 (< OR =4)
[2024-05-06] MEDS: OXYCODONE/APAP 5MG/325MG(HOME DOSE PACK) PO ONE (23:31)
[2024-05-06 23:33] VITALS: BP 148/83; TEMP 97.3; O2SAT 97
== END 2024-05-06 23:36 | disposition home or self-care (01) ==
LOC: EDBD 17:27 → M ED 17:27
DX: S22.41XA Multiple fractures of ribs, right side, initial encounter for closed fracture (principal); Y92.410 Unspecified street and highway as the place of occurrence of the external cause; Y93.9 Activity, unspecified; Y99.9 Unspecified external cause status; V49.40XA Driver injured in collision with unspecified motor vehicles in traffic accident, initial encounter; R79.89 Other specified abnormal findings of blood chemistry; I25.2 Old myocardial infarction; I10 Essential (primary) hypertension; R91.8 Other nonspecific abnormal finding of lung field; D57.1 Sickle-cell disease without crisis; F17.210 Nicotine dependence, cigarettes, uncomplicated; Z88.5 Allergy status to narcotic agent; Z88.8 Allergy status to other drugs, medicaments and biological substances; Z79.51 Long term (current) use of inhaled steroids; Z79.1 Long term (current) use of non-steroidal anti-inflammatories (NSAID); Z79.899 Other long term (current) drug therapy
CPT/HCPCS: 36415; 71260; 72128; 74177; 80047; 80076; 82550; 82553; 83690; 84484; 85025; 85610; 85730; 93005; 99284; Q9967

== ENCOUNTER 2025-01-28 13:07 | Emergency (ER) | payer MEDICARE, MEDICAID ==
[~2025-01-28] VITALS: Ht 203.2 cm; Wt 79.5 kg
[2025-01-28] MEDS: MECLIZINE 25 MG TABLET PO ONE (16:22)
[2025-01-28 17:07] LABS: PLATELET COUNT, AUTOMATED 125 10^3/uL (150-450)
[2025-01-28 17:31] LABS: CALCIUM LEVEL 8.6 MG/DL (8.3-10.6); CARBON DIOXIDE LEVEL 32 MMOL/L (20-31); CHLORIDE LEVEL 109 MMOL/L (98-107); CREATININE FOR GFR 0.88 MG/DL (0.70-1.30); GLOMERULAR FILTRATION RATE > 90.0 (>49); POTASSIUM SERUM 3.8 MMOL/L (3.5-5.1); SODIUM LEVEL 142 MMOL/L (136-145)
[2025-01-28 17:43] LABS: KETONE, URINE AUTO RFX NEGATIVE (NEGATIVE); LEUKOCYTE ESTERASE UR AUTO RFX NEGATIVE (NEGATIVE); NITRITE, URINE AUTO RFX NEGATIVE (NEGATIVE); RBC, URINE AUTO RFX 0 /HPF (0-3); SQUAM EPITHELIAL CELL UR AURFX 0 /HPF (0-6); WBC, URINE AUTO RFX 0 /HPF (0-3)
[2025-01-28 17:56] LABS: BASOPHILS 1 % (0-1); LYMPHOCYTES 46 % (16-44); MONOCYTES 2 % (0-5); NEUTROPHILS 51 % (28-66); PLATELET ESTIMATE DECREASED (NORMAL)
[2025-01-28] MEDS: NS (Normal Saline) 0.9% 1,000 ML IV ONE (19:15)
[2025-01-28] MEDS: MORPHINE 4 MG/ML 1 ML VIAL IV ONE (19:16)
[2025-01-28 19:21] LABS: BASO # 0.1 10^3/uL (0.0-0.2); BASO % 0.8 % (0.0-1.0); EOS # 0.1 10^3/uL (0.0-0.5); EOS % 2.3 % (0.0-3.0); LYMPH # 2.1 10^3/uL (1.5-5.0); LYMPH % 35.2 % (24.0-44.0); MONO # 0.4 10^3/uL (0.0-0.8); MONO % 6.9 % (2.0-8.0); NEUTROPHILS # 3.3 10^3/uL (1.5-8.5); NEUTROPHILS % 54.6 % (36.0-66.0)
[2025-01-28] MEDS ORDERED: ISOVUE-370 76% 100 ML VIAL As Ordered ONE (20:05)
[2025-01-28 22:00] VITALS: BP 161/83
[2025-01-28 22:15] VITALS: TEMP 97.2; O2SAT 93
[2025-01-28] MEDS: MAGNESIUM CITRATE 300 ML BTL PO ONE (22:34)
== END 2025-01-28 22:36 | disposition home or self-care (01) ==
LOC: EDBD 13:07 → M ED 13:07
DX: T63.441A Toxic effect of venom of bees, accidental (unintentional), initial encounter (principal); R10.9 Unspecified abdominal pain; K59.00 Constipation, unspecified; J45.909 Unspecified asthma, uncomplicated; F17.200 Nicotine dependence, unspecified, uncomplicated; Z91.030 Bee allergy status; Z88.5 Allergy status to narcotic agent; Z88.6 Allergy status to analgesic agent; Z79.82 Long term (current) use of aspirin; Z79.02 Long term (current) use of antithrombotics/antiplatelets; Z79.899 Other long term (current) drug therapy; Z79.52 Long term (current) use of systemic steroids
CPT/HCPCS: 74177; 80048; 81001; 85025; 85046; 96374; 99285; Q9967